=== PATIENT | female | born 1965 | race Caucasian/White ===

== ENCOUNTER 2016-04-02 15:39 | Inpatient (IN) | payer OTHER ==
[~2016-04-02] VITALS: Ht 154.9 cm; Wt 57.6 kg
[~2016-04-02 15:39] MED LIST: /CELE20CA OR; ACET65TA OR; ADV250INH INH; ALBU17IN2 INH; ALBU83IN INH; ATOR40TA PO; BUPR15TA PO; COZA100T2 PO; DIGO0.12 PO; DRIS50002 PO; ELIQ5TAB PO; ESTR625TA PO; FLUO40CA PO; FURO40TA2 PO; GABA300C3 PO; IBUP600T26 PO; LASI40TA PO; LOSA100T36 PO; MELA10CA PO; METF1000 PO; METO50TA2 PO; MILKSUS OR; NICO14DI3 TOP; NORCOTAB PO; PERC5TAB8 OR; PERC7.5T8 OR; PRED10PA PO; PROZ20CA OR; SPIR1CAP INH; TESS100C PO; ZYBA150T PO; ZZZQ25CA PO
[2016-04-02] MEDS ORDERED: IPRATROPIUM 0.5MG/ALBUTEROL 2.5MG INH SOL UD 3ML (DUONEB)(J7620) As Ordered ONE (16:07)
[2016-04-02] MEDS ORDERED: methylPREDNISolone INJ 125 MG/2 ML VIAL (J2930) As Ordered ONE (16:10)
[2016-04-02 16:44] LABS: ABG BASE EXCESS -7.6 (-2.0-2.0); ABG DEVICE NASAL CANN; ABG PARTIAL PRESSURE CO2 32.7 mmHg (35.0-45.0); ABG PARTIAL PRESSURE O2 55.9 mmHg (75.0-100.0); ABG STANDARD HCO3 18.2 MEQ/L (22.0-26.0); ABG pH (ARTERIAL) 7.334 UNITS (7.350-7.450)
--- NOTE | 2016-04-02 17:00 | REP ---
Clinical: Chest pain . Comparison: 08/30/2015 . Findings: The mediastinum and cardiac silhouette are stable and within normal limits for portable technique. Pacemaker again identified. The lung hinojosa demonstrate chronic changes without acute consolidation, effusion, or pneumothorax. Skeletal structures are intact. Impression: No acute cardiopulmonary process. Signed by Saurav Villalpando MD 04/02/2016 04:51 P
[2016-04-02 17:01] LABS: MEAN CORPUSCULAR HEMOGLOBIN 30.4 pg (27.0-33.0); MEAN CORPUSCULAR HGB CONC 33.4 g/dl (32.0-36.5); RED CELL DISTRIBUTION WIDTH 12.9 % (11.5-14.5); WHITE BLOOD COUNT 18.9 K/mm3 (4.0-10.0)
[2016-04-02] MEDS ORDERED: ONDANSETRON 4MG/2ML VIAL (J2405) As Ordered ONE (17:09)
[2016-04-02] MEDS ORDERED: ALBUTEROL SULFATE 2.5 MG/0.5 ML INH NEB SOLN As Ordered ONE (17:10)
[2016-04-02] MEDS ORDERED: KETOROLAC 30 MG/ML VIAL (J1885) As Ordered ONE (17:21)
[2016-04-02 17:42] LABS: ALBUMIN 3.7 GM/DL (3.2-5.2); ALBUMIN/GLOBULIN RATIO 0.86 (1.00-1.93); ALKALINE PHOSPHATASE 135 U/L (45-117); ALT/SGPT 22 U/L (12-78); ANION GAP 12 MEQ/L (8-16); AST/SGOT 34 U/L (15-37); BILIRUBIN,DIRECT 0.1 MG/DL (0.0-0.2); BILIRUBIN,TOTAL 0.2 MG/DL (0.2-1.0); BLOOD UREA NITROGEN 8 MG/DL (7-18); CALCIUM LEVEL 8.5 MG/DL (8.5-10.1); CARBON DIOXIDE LEVEL 23 MEQ/L (21-32); CHLORIDE LEVEL 106 MEQ/L (98-107); CREATININE FOR GFR 0.88 MG/DL (0.55-1.02); DIGOXIN LEVEL 0.2 NG/ML (0.5-2.0); GLOMERULAR FILTRATION RATE > 60.0 (>58); GLUCOSE, FASTING 119 MG/DL (70-105); SODIUM LEVEL 141 MEQ/L (136-145)
[2016-04-02 18:16] LABS: ABG BASE EXCESS -8.2 (-2.0-2.0); ABG HCO3 17.4 MEQ/L (22.0-26.0); ABG TOTAL CO2 18.5 MEQ/L (22.0-29.0)
[2016-04-02 18:18] LABS: ABG DEVICE NASAL CANN; ABG PARTIAL PRESSURE CO2 36.1 mmHg (35.0-45.0); ABG STANDARD HCO3 17.5 MEQ/L (22.0-26.0)
[2016-04-02 18:19] LABS: ABG PARTIAL PRESSURE O2 41.6 mmHg (75.0-100.0)
--- NOTE | 2016-04-02 18:22 | ECGEPIP ---
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
[2016-04-02] MEDS ORDERED: ZOSYN 3.375 GM VIAL (J2543) As Ordered ONE (18:33)
[2016-04-02 18:34] LABS: AMPHETAMINES LEVEL URINE NEGATIVE (NEGATIVE); BENZODIAZEPINES URINE NEGATIVE (NEGATIVE); COCAINE METABOLITE URINE NEGATIVE (NEGATIVE); CONTROL LINE INT CTR LINE PRESENT; METHADONE URINE NEGATIVE (NEGATIVE); OPIATES URINE POSITIVE (NEGATIVE); TRICYCLIC ANTIDEPRESS URINE NEGATIVE (NEGATIVE)
[2016-04-02] MEDS ORDERED: VANCOMYCIN 750 MG/25 ML VIAL (J3370) As Ordered ONE (20:28)
[2016-04-02] MEDS ORDERED: VANCOMYCIN HCL 500 MG/10 ML VIAL (J3370) As Ordered ONE (20:28)
[2016-04-02] MEDS ORDERED: OXAZEPAM 15 MG CAP As Ordered ONE (20:28)
[2016-04-02] MEDS ORDERED: OXAZEPAM 10 MG CAP PO PRN (20:30)
[2016-04-02] MEDS ORDERED: LORazepam 2 MG/ML VIAL (J2060) IM PRN (20:30)
[2016-04-02] MEDS ORDERED: ONDANSETRON 4MG/2ML VIAL (J2405) IV PRN (20:30)
[2016-04-02] MEDS ORDERED: FURO40TA2 PO (20:34)
[2016-04-02] MEDS ORDERED: METO-207 PO (20:34)
[2016-04-02] MEDS ORDERED: DIGO0.25 PO (20:35)
[2016-04-02] MEDS ORDERED: IPRATROPIUM 0.5MG/ALBUTEROL 2.5MG INH SOL UD 3ML (DUONEB)(J7620) NEB PRN (22:00)
[2016-04-02] MEDS ORDERED: DEXTROSE 50% 50 ML SYRINGE IV PRN (22:15)
[2016-04-02] MEDS ORDERED: GLUCOSE 4 GM CHEW TABLET PO PRN (22:15)
[2016-04-02] MEDS ORDERED: GLUCAGON FOR INJ 1 MG VIAL (J1610) SC PRN (22:15)
[2016-04-02] MEDS ORDERED: LevoFLOXacin IV 500 MG in APPROPRIATE DILUENT 1 EA IV SCH (23:00)
[2016-04-02] MEDS ORDERED: LevoFLOXacin(LEVAQUIN)500 MG/100 ML BAG (J1956) As Ordered ONE (23:08)
[2016-04-02] MEDS ORDERED: HumuLIN R (REGULAR) INSULIN (NovoLIN R) **100U/ML** PER UNIT As Ordered ONE (23:10)
[2016-04-02] MEDS ORDERED: SODIUM CHLORIDE 0.9% 1000 ML IV SCH (23:15)
[2016-04-02] MEDS ORDERED: DOCUSATE SODIUM 100 MG CAP As Ordered ONE (23:16)
[2016-04-02] MEDS: HumaLOG INSULIN (NovoLOG) PER UNIT SC SCH (23:29)
[2016-04-02] MEDS: ADVAIR DISKUS 250/50 INH PWD INH SCH (23:29)
[2016-04-02] MEDS: GABAPENTIN 300 MG CAP PO SCH (23:29)
[2016-04-02] MEDS: DOCUSATE SODIUM 100 MG CAP PO SCH (23:29)
[2016-04-03] VITALS (7 sets, daily range): BP systolic 110–148; BP diastolic 56–77
[2016-04-03] MEDS: NS 1,000 ML IV SCH ×3 (00:23→20:16)
[2016-04-03] MEDS ORDERED: ZOSYN 3.375 GM VIAL (J2543) As Ordered ONE ×2 (01:29→08:47)
[2016-04-03] MEDS: PIPERACILLIN/TAZOBACTAM SOD 3.375 GM in D5W MINI-BAG PLUS 50 ML IV SCH ×4 (01:40→23:24)
[2016-04-03] MEDS ORDERED: SODIUM CHLORIDE 0.9% 1000 ML IV ONE (03:15)
[2016-04-03] MEDS ORDERED: methylPREDNISolone INJ 125 MG/2 ML VIAL (J2930) As Ordered ONE (03:58)
[2016-04-03] MEDS: methylPREDNISolone INJ 125 MG/2 ML VIAL (J2930) IV SCH ×2 (04:03→17:21)
--- NOTE | 2016-04-03 06:38 | HPE ---
DATE OF ADMISSION: 04/01/2016 PRIMARY CARE PROVIDER: TIANA Medeiros CHIEF COMPLAINT: Is altered mental status, shortness of breath. HISTORY OF PRESENT ILLNESS: 50-year-old female presented to the emergency department by emergency medical service (EMS). Was called to the house by a family member. Had initially been unresponsive and given 6 mg of Narcan. She did become combative when she woke up. Did require some oxygen supplementation, and brought to the emergency department for further evaluation. At bedside, she actually was pleasant to talk to this evening. She states that she is unaware of whether or not somebody slipped her some kind of illicit drug. She does have a prior history of polysubstance abuse, alcohol abuse, and tobacco use, but she states it has been "a long time" since she has used any heroin or any other illicit drugs intentionally. At any rate, she has had 1-2 weeks of fever, chills, rigors, productive sputum with cough. She has had some nausea today with no vomiting. Bowel movements are regular. She denies any hematochezia or melena. No dysuria or frequency. She denies substernal chest pain. No paroxysmal nocturnal dyspnea (PND) or orthopnea. However, she was given some supplemental oxygen in the emergency room (ER) and when they tried to titrate her off, she desaturated into the 70s. Her chest x-ray did not reveal any specific infiltrate or consolidation. However, she does have a pacer and does have coarse breath sounds on examination by the ER physician, and the hospitalist was called for admission due to the patient having altered mentation, productive sputum, and hypoxia with likely pneumonia, possibly aspiration pneumonia. 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 PAST SURGICAL HISTORY: Kidney surgery. Had a chest tube on the right a few years ago by Dr. Miguel. Automatic implantable cardioverter-defibrillator (AICD)/pacemaker insertion, heart catheterization, and (C) section. SOCIAL HISTORY: She smokes approximately a half a pack to a pack a day. Does have a history of polysubstance abuse with heroin in the past. However, she denies using any illicit drugs recently. She is unsure of any sick contacts. No recent travel. FAMILY HISTORY: Noncontributory. ALLERGIES: INTRAVENOUS (IV) DYE, SULFA. HOME MEDICATIONS: - Advair Diskus two inhalations daily - albuterol inhaler as needed - baclofen, unknown dose - digoxin daily - Eliquis, which she stated she has discontinued a few weeks ago because it was making her feel like she was freezing - gabapentin three times daily - losartan two times daily - metformin 1000 mg twice a day - Naprosyn as needed - Spiriva HandiHaler one capsule daily Please note that pharmacy is currently checking a medication reconciliation since we do not have any accurate doses on her medications listed here. REVIEW OF SYSTEMS: Constitutional: She has had fevers, chills, rigors for the last couple of weeks with a productive intermittent cough. HEENT: She denies headache, lightheadedness, dizziness, blurry vision, or double vision. She denies sore throat, but it is felt that she has had a scratchy throat. Lungs: She describes having a productive sputum, expiratory wheeze. Has history of COPD that she uses inhalers for at home. Cardiovascular: Prior history of atrial fibrillation with cardiac stent placement, left bundle branch block, and AICD placement in the past. Currently, she denies substernal chest pain, PND, orthopnea, or lower extremity edema. Gastrointestinal (GI): No nausea, vomiting, diarrhea. Bowel movements are regular. She denies any hematochezia or melena. Genitourinary (): No dysuria, frequency, or hematuria. Musculoskeletal: No bone, muscle, or joint pain, swelling, or erythema, but she does describe having some generalized weakness. Neurologic: No paresthesias or paralysis. She did present with some metabolic encephalopathy in the field and did respond to Narcan. Endocrine: Positive for diabetes. Negative for thyroid disorder. Hematology: No history of bleeding or bruising disorder. No venous thromboembolism. She was previously on Eliquis, which she has discontinued on her own a few weeks ago, but has no issues of bleeding or bruising currently. Oncology: Negative for cancer. Lymphatics: No lumps, bumps, swelling in neck, axillae, or groin. No weight loss. She has had some fevers, but no specific night sweats. Psychiatric: Positive for bipolar disorder, polysubstance abuse. No suicidal ideation. No audio/visual hallucination. She is pleasant at bedside this evening. 10-point review of systems listed. Pertinent positives listed. All other systems were negative. PHYSICAL EXAMINATION: Temperature is 96.8, respiratory rate is 18, pulse is 109 and ventricularly paced, blood pressure (BP) is 120/59. She did have a dip earlier this evening to 106/60, and she has not received any IV fluids at this point. SpO2 is 96% on 3 liters. HEENT: Head is atraumatic, normocephalic. Eyes: Pupils equal, round, reactive to light and accommodation (PERRLA). Throat clear. Lungs: Coarse rhonchi noted in the lower lung hinojosa with expiratory wheeze in the upper lung field. Abdomen: Soft, nontender, nondistended with positive bowel sounds. No mass or rebound. Extremities: No edema. No calf tenderness. Cranial nerves II-XII grossly intact, and she does not demonstrate any focal neurologic deficits. LABS AND DIAGNOSTICS: White count 18.9, hemoglobin 15.3, platelets 348,000. Sodium is 141, potassium 4.0, chloride 106, bicarbonate 23, anion gap 12, BUN is 8, creatinine 0.88, glucose is 119, calcium 8.5, total bilirubin 0.2, direct bilirubin 0.1, AST 34, ALT 22, alkaline phosphatase 135, BNP is 38.8, albumin is 3.7, TSH is 0.634. Digoxin level is 0.2. Toxicology screen is positive for opiates, positive for cannabinoids, and alcohol is 0.101. Blood cultures and sputum cultures are pending at this time as well as a lactic acid. Her chest x-ray is outlined above. Does show clear lung hinojosa with no definitive infiltrate or consolidation. However, the chest CT does show bronchitis with early multifocal pneumonia involving the right upper, right middle, and right lower lobes with underlying chronic emphysematous changes. Head CT done on admission/presentation to the emergency department is negative for any acute intracranial processes or acute intracranial bleed. 12-lead EKG initially did show electrically ventricular paced rhythm with a ventricular rate of 132. No acute ST-T wave abnormality. We did repeat this. Her ventricular rate did come down to 88, did appear to be regular, and electronic ventricular pacing is noted with no acute ST-T wave abnormalities. IMPRESSION: Ms. Hennessy is a 50-year-old female who presented to the emergency department after being found down at home with altered mental status. Did respond to Narcan in the field. However, she has had 1-2 weeks of febrile illness, productive sputum, cough, fever, chills, and rigors, and does appear to have multilobar pneumonia on CT of the chest. She will need to be admitted due to her underlying cardiac risk factors and comorbidities. She does have a bit higher of a risk factor due to her pneumonia, and she will need to be covered appropriately. PROBLEM LIST: 1. Metabolic encephalopathy, which received Narcan in the field and responded appropriately. 2. Multilobar pneumonia. Lactic acid is pending. 3. Acute hypoxia requiring oxygen supplementation, possible aspiration. 4. Leukocytosis. 5. Alcohol abuse. 6. Polysubstance abuse. 7. Tobacco use, which we provided counseling and encouraged cessation. 8. Bipolar disorder. 9. History of hepatitis C virus in the past, which she has received outpatient therapy with Dr. Diaz. 10. Diabetes. PLAN: The patient will be admitted to progressive care unit (PCU) per Dr. Ford. Will continue with IV antibiotics consisting of IV Zosyn and Levaquin. Will add an Acapella, DuoNeb, sputum culture, blood cultures, as well as check a respiratory panel. Oxygen supplementation with goal of oxygen titration greater than 88%. We will go ahead and check a lactic acid. I am going to go ahead and start gentle IV fluids since she does appear to be mildly toxic but does not currently have any signs of sepsis, but we will see what her lactate shows. She was slightly hypotensive earlier, so we will go ahead and give her some volume expansion with IV fluids, run normal saline at 80 mL/hr. Tylenol for fever. Continue her home medications. Concerning the history of alcohol use, we will need to monitor for withdrawal, start her on Serax and Ativan as needed, thiamine, folic acid, multivitamin. Deep venous thrombosis (DVT) prophylaxis with Lovenox. Concerning the Eliquis, we will go ahead and hold that for now. This can be addressed further with the daytime team. Due to her history of polysubstance abuse, altered mental status, she may be at an increased risk for a fall with head trauma resulting in intracranial hemorrhage. 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 Will hold the patient's metformin. Will start on consistent-carbohydrate diet. Fingersticks before food and nightly with sliding scale coverage. DISPOSITION: We will see how she does overnight. Would like to monitor her on telemetry since she does have an underlying cardiac history with the multilobar pneumonia. We will go ahead and place a patient and family services (PFS) consult as well. Edited: lawrence 04/03/2016 [id number] MTDD
[2016-04-03] MEDS: IPRATROPIUM 0.5MG/ALBUTEROL 2.5MG INH SOL UD 3ML (DUONEB)(J7620) NEB SCH ×3 (08:00→15:59)
--- NOTE | 2016-04-03 08:09 | REP ---
Clinical: Altered mental status . Comparison: 04/22/2012 . Findings: The ventricles, sulci, and cisterns are normal in position and appearance. Ballesteros-white differentiation is maintained. No acute intracranial hemorrhage, mass/mass effect, pathology or trauma/injury. No evidence for acute infarction. No extra-axial fluid collection. Calvarium is intact. Paranasal sinuses and mastoid air cells are clear. Impression: Normal noncontrast head CT. No evidence for acute intracranial pathology or trauma/injury. Signed by Saurav Villalpando MD 04/03/2016 08:01 A
--- NOTE | 2016-04-03 08:12 | REP ---
Clinical: Shortness of breath. Comparison: 10/14/2010. Findings: Mild chronic emphysematous changes are appreciated with primarily by apical subpleural bullae and minimal bronchiectasis. Subtle superimposed acute alveolar infiltrates involve primarily the right upper lobe, right lower lobe and right middle lobe and to a lesser extent the perihilar left lung. No focal nodule or mass lesion. Mild reactive adenopathy in the mediastinum and high right hilum suggested. No pleural effusion/reaction or pneumothorax. Heart and pericardium are stable. Impression: Evidence to suggest bronchitis with early multifocal pneumonia. Correlation is recommended. Mild underlying emphysematous changes. Signed by Saurav Villalpando MD 04/03/2016 08:03 A
[2016-04-03] MEDS: TIOTROPIUM INHALER/CAPSULE (SPIRIVA) INH SCH (08:13)
[2016-04-03] MEDS: ADVAIR DISKUS 250/50 INH PWD INH SCH ×2 (08:13→21:00)
[2016-04-03 08:45] LABS: MEAN CORPUSCULAR HGB CONC 33.8 g/dl (32.0-36.5); MEAN CORPUSCULAR VOLUME 91.8 fl (80.0-96.0); WHITE BLOOD COUNT 19.3 K/mm3 (4.0-10.0)
[2016-04-03] MEDS ORDERED: HumaLOG INSULIN (NovoLOG) PER UNIT As Ordered ONE ×2 (08:47→13:15)
[2016-04-03 08:50] LABS: CALCIUM LEVEL 8.9 MG/DL (8.5-10.1); CREATININE FOR GFR 1.1 MG/DL (0.55-1.02); GLOMERULAR FILTRATION RATE 56.2 (>58); POTASSIUM SERUM 4.1 MEQ/L (3.5-5.1)
[2016-04-03] MEDS ORDERED: FUROSEMIDE 40 MG TAB PO SCH (09:00)
[2016-04-03] MEDS ORDERED: ENOXAPARIN 40 MG/0.4 ML SYRINGE (J1650) SC SCH (09:00)
[2016-04-03] MEDS ORDERED: ENOXAPARIN 30 MG/0.3 ML SYR (J1650) As Ordered ONE (09:04)
[2016-04-03] MEDS ORDERED: THIAMINE 100 MG TAB As Ordered ONE (09:05)
[2016-04-03] MEDS ORDERED: DIGOXIN 0.25 MG TAB As Ordered ONE (09:05)
[2016-04-03] MEDS ORDERED: FOLIC ACID 1 MG TAB As Ordered ONE (09:05)
[2016-04-03] MEDS ORDERED: MULTIVITAMINS/MINERALS THERAP 1 TAB As Ordered ONE (09:05)
[2016-04-03] MEDS ORDERED: DOCUSATE SODIUM 100 MG CAP As Ordered ONE (09:05)
[2016-04-03] MEDS: HumaLOG INSULIN (NovoLOG) PER UNIT SC SCH ×4 (09:07→20:16)
[2016-04-03] MEDS: FOLIC ACID 1 MG TAB PO SCH (09:07)
[2016-04-03] MEDS: DOCUSATE SODIUM 100 MG CAP PO SCH ×2 (09:07→20:12)
[2016-04-03] MEDS: LOSARTAN 50 MG TAB PO SCH (09:07)
[2016-04-03] MEDS: THIAMINE 100 MG TAB PO SCH (09:07)
[2016-04-03] MEDS: MULTIVITAMINS/MINERALS THERAP 1 TAB PO SCH (09:07)
[2016-04-03] MEDS: GABAPENTIN 300 MG CAP PO SCH ×3 (09:07→20:12)
[2016-04-03] MEDS: DIGOXIN 0.25 MG TAB PO SCH (09:08)
[2016-04-03] MEDS: METOPROLOL SUCC (TopROL XL) 50MG **XL** TAB PO SCH (09:08)
[2016-04-03] MEDS: NICOTINE 14 MG/24 HR TRANSDERMAL TD SCH (09:08)
[2016-04-03] MEDS ORDERED: ENOXAPARIN 40 MG/0.4 ML SYRINGE (J1650) As Ordered ONE (09:13)
[2016-04-03] MEDS ORDERED: OXAZEPAM 10 MG CAP As Ordered ONE (12:01)
[2016-04-03] MEDS: OXAZEPAM 15 MG CAP PO SCH ×2 (13:45→20:13)
[2016-04-03] MEDS ORDERED: IPRATROPIUM 0.5MG/ALBUTEROL 2.5MG INH SOL UD 3ML (DUONEB)(J7620) As Ordered ONE (14:56)
--- NOTE | 2016-04-03 15:28 | EDDOCDS ---
Nurse's Notes [facility] Name: Cynthia Hennessy Age: 50 yrs Sex: Female : 1965 Arrival Date: 04/02/2016 Time: 15:39 Bed Admit Hold Private MD: Alla Fernandes C Diagnosis: Lobar pneumonia, unspecified organism-RUL, RML, RLL - aspiration;Altered mental status, unspecified;Acute and chronic respiratory failure with hypoxia;Alcohol use, unspecified with intoxication Presentation: 04/02 15:42 Presenting complaint: EMS states: "We were called to the house for the pt being mb9 unresponsive. We gave 6 mg of narcan and the pt began to wake up and become combative". Suicide/Homicide risk assessment- the patient denies having any suicidal and/or homicidal ideations and does not present with any other emotional, behavioral or mental health complaints. Status: Patient is not a director volunteer services or dependent. Transition of care: patient was not received from another setting of care. 15:42 Acuity: ELIAS Level 3 mb9 15:42 Method Of Arrival: Ambulance mb9 15:52 Adult Sepsis Screening: The patient does not have new or worsening altered mentation. js13 Patient's respiratory rate is less than 22. Systolic blood pressure is greater than 100. Patient has a qSOFA score of 0- Negative Sepsis Screen. Triage Assessment: 15:48 General: Appears ill. Pain: Denies pain. Pt Declines HIV testing. Neurological: Level js13 of Consciousness is awake, alert, obeys commands, Oriented to person, place, time. Cardiovascular: Rhythm is sinus tachycardia Chest pain is denied. Respiratory: Airway is patent Respiratory effort is even, labored, Respiratory pattern is tachypnea. Derm: Skin is normal. 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 Advair Diskus inhalation Inhl 2 times per day 2. Albuterol Inhl as needed 3. Baclofen Oral Unknown as needed 4. Digoxin Oral once daily 5. Eliquis oral Unknown 2 times per day 6. Gabapentin Oral 3 times per day 7. losartan oral Unknown 2 times per day 8. metformin 1,000 mg Oral tab 1 tab 2 times per day 9. Naprosyn Oral as needed 10. Spiriva with HandiHaler 18 mcg Inhl CpDv 1 cap once daily - PMHx: Atrial Fib; COPD; Diabetes - NIDDM: controlled; Hypertension; LBBB; - PSHx: kidney surgery; Chest Tube- Right; defibbrilator placement; Pacemaker Insertion; heart cath; ; - Social history: Smoking status: Patient uses tobacco products, current every day smoker. No barriers to communication noted, The patient speaks fluent [place]. - Family history: Not pertinent. - : The pt / caregiver states he / she is on anticoagulants: Eliquis Home medication list is obtained from the patient, [employer] import data. - Exposure Risk Screening:: None identified. Screenin/20 15:12 Screening information is obtained from the patient. Fall risk: No risks identified. me3 Assistance ADL's: requires no assistance with activities of daily living. Abuse/DV Screen: The patient / caregiver reports he/she is: not in a situation that causes fear, pain or injury. Nutritional screening: No deficits noted. Advance Directives: Currently, there is no health care proxy. home support is adequate. Assessment: 04/02 16:00 General: Appears uncomfortable, Behavior is anxious, fussy, inappropriate for age, mb9 restless. Respiratory: Airway is patent Respiratory effort is even, unlabored, Reports cough that is. 17:02 Reassessment: Patient states symptoms have improved. General: Appears uncomfortable, mb9 Behavior is fussy. Respiratory: Airway is patent Respiratory effort is even, unlabored, Breath sounds are clear bilaterally. Breath sounds are diminished in left posterior lower lobe, right posterior middle lobe and right posterior lower lobe. 18:24 Reassessment: Patient states symptoms have improved. General: Appears uncomfortable, mb9 Behavior is cooperative. Respiratory: Airway is patent Respiratory effort is even, unlabored, Breath sounds are coarse bilaterally. Breath sounds with wheezes bilaterally. 20:07 General: pt demanding to leave er at this time. dr torres notified. . mb9 21:56 Reassessment: Patient appears in no apparent distress at this time. Patient states mb9 feeling better. Patient states symptoms have improved. Adult Sepsis Screening: The patient does not have new or worsening altered mentation. Patient's respiratory rate is less than 22. Systolic blood pressure is greater than 100. Patient has a qSOFA score of 0- Negative Sepsis Screen. General: Appears comfortable, Behavior is cooperative. Respiratory: Airway is patent Respiratory effort is even, unlabored. 23:51 General: Dr Tomlinson notified of pt's lactic acid of 2.8. mb9 Vital Signs: 15:42 BP 140 / 76; Pulse 120; Resp 18; Temp 96.8(TE); Pulse Ox 94% on R/A; Weight 54.43 kg ml6 (R); Height 5 ft. 1 in. (154.94 cm) (R); Pain 0/10; 15:47 BP 140 / 76 (auto/); js13 16:00 BP 123 / 64 (auto/); mb9 16:00 Pulse 118 MON; Pulse Ox 84% on 3 lpm NC; mb9 16:14 Pulse 115 MON; Pulse Ox 82% on 3 lpm NC; mb9 16:15 BP 135 / 83 (auto/); mb9 16:30 BP 126 / 66 (auto/); mb9 16:33 Pulse 118 MON; Pulse Ox 80% on 3 lpm NC; mb9 17:00 BP 124 / 65 (auto/); mb9 17:01 Pulse 117 MON; Pulse Ox 90% on Venturi mask; mb9 17:15 BP 142 / 77 (auto/); mb9 17:15 Pulse 118 MON; Pulse Ox 97% on Venturi mask; mb9 17:30 BP 123 / 65 (auto/); mb9 17:31 Pulse 134 MON; Pulse Ox 99% on Venturi mask; mb9 17:45 BP 123 / 58 (auto/); mb9 17:46 Pulse 130 MON; Pulse Ox 98% on Venturi mask; mb9 18:00 BP 128 / 62 (auto/); mb9 18:01 Pulse 126 MON; Pulse Ox 98% on Venturi mask; mb9 18:15 BP 117 / 57 (auto/); mb9 18:16 Pulse 122 MON; Pulse Ox 96% on Venturi mask; mb9 18:30 BP 123 / 58 (auto/); mb9 18:31 Pulse 120 MON; Pulse Ox 98% on Venturi mask; mb9 18:45 BP 120 / 56 (auto/); mb9 18:46 Pulse 119 MON; Pulse Ox 96% on Venturi mask; mb9 19:00 BP 106 / 68 (auto/); mb9 19:01 Pulse 109 MON; Pulse Ox 96% on Venturi mask; mb9 19:14 Pulse 109 MON; Pulse Ox 96% on Venturi mask; mb9 19:15 BP 121 / 59 (auto/); mb9 19:30 BP 116 / 59 (auto/); mb9 19:31 Pulse 107 MON; Pulse Ox 100% on Venturi mask; mb9 19:45 BP 121 / 59 (auto/); mb9 19:46 Pulse 106 MON; Pulse Ox 96% on Venturi mask; mb9 20:08 Pulse Ox 93% on R/A; mb9 20:16 BP 127 / 74 (auto/); mb9 20:17 Pulse 108 MON; Pulse Ox 95% ; mb9 21:16 BP 118 / 64 (auto/); mb9 21:17 Pulse 92 MON; Pulse Ox 96% ; mb9 15:42 Body Mass Index 22.67 (54.43 kg, 154.94 cm) ml6 16:00 pt continues to remove nasal cannula. pt advised to leave nasal cannula in place. mb9 16:14 pt continues to remove nasal cannula. pt advised to leave nasal cannula in place. mb9 16:33 pt continues to remove nasal cannula. pt advised to leave nasal cannula in place. mb9 Vitals: 15:42 Log In Time N/A - ambulance arrival. ml6 ED Course: 15:40 Patient visited by Courtney Bhatt PCA. ar3 15:40 Valentina Tinsley,RN is Primary Nurse. ar3 15:40 Patient moved to Waiting ar3 15:40 Patient moved to 3 ar3 15:41 Alla Fernandes is Private Physician. ar3 15:45 Joslyn Huddleston MD is Attending Physician. fg 15:45 Patient visited by Joslyn Huddleston MD. fg 15:46 Triage Initiated mb9 15:50 Patient visited by Catina Calderon PCA. jlf 15:51 O2 via nasal cannula \\T\\ 3L/min. js13 15:52 Patient visited by Valentina Tinsley,ARTURO. js13 16:38 Inserted saline lock: 18 gauge in right antecubital area and blood collected. The mb9 patient tolerated the procedure well. 16:39 -Arterial Blood Gas Sent. lb 16:59 [facility] [place] [facility] Payment Agreement was scanned into [employer] and attached to record. slh 17:02 Patient visited by Zac Correa RN. mb9 17:10 Chest, 1 View Returned. EDMS 17:27 Patient visited by Catina Calderon PCA. 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 Pulse ox on. NIBP on. Notified attending ED physician of was unable jl to perform EKG until 1725. MD aware. . 17:27 EKG done. (by ED staff). Reviewed by Joslyn Huddleston MD. jlf 17:57 Patient visited by Catina Calderon PCA. jlf 17:57 Drug Eval Toxicology ED Only Sent. jlf 18:07 -Arterial Blood Gas Sent. kt1 18:27 Patient visited by Zac Correa RN. mb9 18:33 EKG-ADULT Returned. EDMS 19:15 Attending Physician role handed off by Joslyn Huddleston MD mm11 19:15 Gray Torres DO is Attending Physician. mm11 19:19 Primary Nurse role handed off by Valentina Tinsley RN ko2 19:32 Patient visited by Gray Torres DO. mm11 20:06 Patient visited by Zac Correa RN. mb9 20:09 Patient moved to 11 mb9 20:16 Patient visited by Gray Torres DO. mm11 20:17 Leonidas Tomlinson DO is Hospitalizing Provider. mm11 20:54 Patient moved to Admit Hold ml3 21:19 Patient visited by Lucille King PCA. cln 21:19 EKG done. (by ED staff). Reviewed by Leonidas Tomlinson DO. cln 21:56 URINALYSIS Sent. mb9 22:13 RESPIRATORY PANEL Sent. mb9 22:25 BLOOD CULTURES Sent. cln 04/03 07:54 PCR was scanned into cicayda and attached to record. mt4 08:12 CT Head Without Contrast Returned. EDMS 08:45 CT Chest Without Contrast Returned. EDMS 15:13 No procedures done that require assistance. me3 15:15 The patient / caregiver is instructed regarding the plan of care and ED course. me3 Administered Medications: 04/02 16:16 Drug: Solu-MEDROL 125 mg [Solu-Medrol 500 mg intravenous solution (125 mg)] Route: IVP; js13 Site: right antecubital; 16:39 Drug: Albuterol-Ipratropium 3 ml [ipratropium-albuterol 0.5 mg-3 mg(2.5 mg base)/3 mL lb nebulization soln (3 mL)] Route: Inhalation; 17:16 Drug: Ondansetron 4 mg [ondansetron HCl 2 mg/mL intravenous solution (2 mL)] Route: mb9 IVP; Site: right antecubital; 17:25 Drug: ketorolac 30 mg [ketorolac 30 mg/mL (1 mL) injection solution (1 mL)] Route: IVP; mb9 Site: right antecubital; 18:00 Drug: Albuterol 5 mg [albuterol sulfate 2.5 mg/0.5 mL solution for nebulization (1 mL)] kt1 Route: Nebulizer; 18:40 Drug: Piperacillin-Tazobactam 3.375 grams [piperacillin-tazobactam 3.375 gram mb9 intravenous solution] Route: IVPB; Infused Over: 30 mins; Site: right antecubital; 23:50 Follow up: IV Intake: 50ml mb9 20:47 Drug: Oxazepam 30 mg [oxazepam 15 mg capsule (2 caps)] Route: PO; mb9 20:47 Drug: vancomycin (loading dose for pt. wt. 50-59kg) 1250 mg [vancomycin 500 mg mb9 intravenous solution] Route: IVPB; Site: right antecubital; 23:51 Follow up: IV Intake: 500ml mb9 Point of Care Testing: Blood Glucose: 22:46 Blood Glucose: 289 mg/dL; mb9 Ranges: Intake: 23:50 IV: 50.00ml; Total: 50.00ml. mb9 23:51 IV: 500.00ml; Total: 550.00ml. mb9 RT: 16:39 ABG's drawn from right radial artery allens test done and positive pressure held for 5 lb minutes no bleeding noted pressure bandage applied specimen sent pt. tolerated well. Initial Med Neb Given as ordered Patient was instructed and evaluated on procedure Patient tolerated procedure well without adverse effect. Respiratory: Breath sounds are coarse bilaterally. 17:13 Subsequent Med Neb Given as ordered Patient tolerated procedure well without adverse lb effect. Respiratory: Breath sounds are coarse bilaterally. Breath sounds with wheezes at expiration. 17:13 O2 via Venturi mask \\T\\ 15L/min - 50%. lb 18:08 ABG's drawn from left radial artery pressure held for 5 minutes no bleeding noted kt1 pressure bandage applied specimen sent pt. tolerated well. Order Results: Lab Order: -Arterial Blood Gas; [facility] 04/02/16 16:10 Test: ABG pH (ARTERIAL); Value: 7.334; Range: 7.350-7.450; Abnormal: Below low normal; Units: UNITS; Status: F Test: ABG PARTIAL PRESSURE CO2; Value: 32.7; Range: 35.0-45.0; Abnormal: Below low normal; Units: mmHg; Status: F Test: ABG PARTIAL PRESSURE O2; Value: 55.9; Range: 75.0-100.0; Abnormal: Below low normal; Units: mmHg; Status: F Test: ABG TOTAL CO2; Value: 18.0; Range: 22.0-29.0; Abnormal: Below low normal; Units: MEQ/L; Status: F Test: ABG HCO3; Value: 17.0; Range: 22.0-26.0; Abnormal: Below low normal; Units: MEQ/L; Status: F Test: ABG BASE EXCESS; Value: -7.6; Range: -2.0-2.0; Abnormal: Below low normal; Status: F Test: ABG STANDARD HCO3; Value: 18.2; Range: 22.0-26.0; Abnormal: Below low normal; Units: MEQ/L; Status: F Test: ABG O2 SATURATION; Value: 88.1; Range: 95.0-99.0; Abnormal: Below low normal; Units: %; Status: F Test: ABG DEVICE; Value: NASAL AVI; Status: F Lab Order: Acetaminophen Level; SPEC' 04/02/16 16:53 Test: ACETAMINOPHEN LEVEL; Value: < 2.0; Range: 10.0-30.0; Abnormal: Below low normal; Units: UG/ML; Status: F Lab Order: Basic Metabolic Profile; [facility]04/02/16 16:53 Test: GLUCOSE, FASTING; Value: 119; Range: 70-105; Abnormal: Above high normal; Units: MG/DL; Status: F Test: BLOOD UREA NITROGEN; Value: 8; Range: 7-18; Units: MG/DL; Status: F Test: CREATININE FOR GFR; Value: 0.88; Range: 0.55-1.02; Units: MG/DL; Status: F Test: GLOMERULAR FILTRATION RATE; Value: > 60.0; Range: >58; Status: F Test: SODIUM LEVEL; Value: 141; Range: 136-145; Units: MEQ/L; Status: F Test: POTASSIUM SERUM; Value: 4.0; Range: 3.5-5.1; Units: MEQ/L; Status: F Test: CHLORIDE LEVEL; Value: 106; Range: 98-107; Units: MEQ/L; Status: F Test: CARBON DIOXIDE LEVEL; Value: 23; Range: 21-32; Units: MEQ/L; Status: F Test: ANION GAP; Value: 12; Range: 8-16; Units: MEQ/L; Status: F Test: CALCIUM LEVEL; Value: 8.5; Range: 8.5-10.1; Units: MG/DL; Status: F Test Note: ; Units are mL/min/1.73 m2 Chronic Kidney Disease Staging per NKF: Stage I & II GFR >=60 Normal to Mildly Decreased Stage III GFR 30-59 Moderately Decreased Stage IV GFR 15-29 Severely Decreased Stage V GFR <15 Very Little GFR Left ESRD GFR <15 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 Lab Order: Complete Blood Count; SPEC'M 04/02/16 16:53 Test: WHITE BLOOD COUNT; Value: 18.9; Range: 4.0-10.0; Abnormal: Above high normal; Units: K/mm3; Status: F Test: RED BLOOD COUNT; Value: 5.03; Range: 4.00-5.40; Units: M/mm3; Status: F Test: HEMOGLOBIN; Value: 15.3; Range: 12.0-16.0; Units: g/dl; Status: F Test: HEMATOCRIT; Value: 45.8; Range: 36.0-47.0; Units: %; Status: F Test: MEAN CORPUSCULAR VOLUME; Value: 91.0; Range: 80.0-96.0; Units: fl; Status: F Test: MEAN CORPUSCULAR HEMOGLOBIN; Value: 30.4; Range: 27.0-33.0; Units: pg; Status: F Test: MEAN CORPUSCULAR HGB CONC; Value: 33.4; Range: 32.0-36.5; Units: g/dl; Status: F Test: RED CELL DISTRIBUTION WIDTH; Value: 12.9; Range: 11.5-14.5; Units: %; Status: F Test: PLATELET COUNT, AUTOMATED; Value: 248; Range: 150-450; Units: k/mm3; Status: F Lab Order: Drug Eval Toxicology ED Only; SPEC'M 04/02/16 17:54 Test: AMPHETAMINES LEVEL URINE; Value: NEGATIVE; Range: NEGATIVE; Status: F Test: BARBITURATES URINE; Value: NEGATIVE; Range: NEGATIVE; Status: F Test: BENZODIAZEPINES URINE; Value: NEGATIVE; Range: NEGATIVE; Status: F Test: CANNABINOIDS URINE; Value: POSITIVE; Range: NEGATIVE; Abnormal: Above high normal; Status: F Test: COCAINE METABOLITE URINE; Value: NEGATIVE; Range: NEGATIVE; Status: F Test: METHADONE URINE; Value: NEGATIVE; Range: NEGATIVE; Status: F Test: OPIATES URINE; Value: POSITIVE; Range: NEGATIVE; Abnormal: Above high normal; Status: F Test: TRICYCLIC ANTIDEPRESS URINE; Value: NEGATIVE; Range: NEGATIVE; Status: F Test Note: ; FALSE POSITIVE RESULTS CAN BE CAUSED BY THE USE OF PANTOPRAZOLE (PROTONIX). Lab Order: Ethyl Alcohol (ethanol); SPEC'M 04/02/16 16:53 Test: ETHYL ALCOHOL (ETHANOL); Value: 0.101; Range: 0.000-0.010; Abnormal: Above high normal; Units: %; Status: F Lab Order: Liver Profile; SPEC'M 04/02/16 16:53 Test: AST/SGOT; Value: 34; Range: 15-37; Units: U/L; Status: F Test: ALT/SGPT; Value: 22; Range: 12-78; Units: U/L; Status: F Test: ALKALINE PHOSPHATASE; Value: 135; Range: 45-117; Abnormal: Above high normal; Units: U/L; Status: F Test: BILIRUBIN,TOTAL; Value: 0.2; Range: 0.2-1.0; Units: MG/DL; Status: F Test: BILIRUBIN,DIRECT; Value: 0.1; Range: 0.0-0.2; Units: MG/DL; Status: F Test: TOTAL PROTEIN; Value: 8.0; Range: 6.4-8.2; Units: GM/DL; Status: F Test: ALBUMIN; Value: 3.7; Range: 3.2-5.2; Units: GM/DL; Status: F Test: ALBUMIN/GLOBULIN RATIO; Value: 0.86; Range: 1.00-1.93; Abnormal: Below low normal; Status: F Lab Order: Salicylate Level; [facility] 04/02/16 16:53 Test: SALICYLATE LEVEL; Value: 3.5; Range: 5.0-30.0; Abnormal: Below low normal; Units: MG/DL; Status: F Lab Order: Thyroid Stimulating Hormone; [facility] 04/02/16 16:53 Test: THYROID STIMULATING HORMONE; Value: 0.634; Range: 0.358-3.740; Units: uIU/ML; Status: F Lab Order: BNP; [facility] 04/02/16 16:53 Test: BRAIN NATRIURETIC PEPTIDE; Value: 38.8; Range: <100; Units: PG/ML; Status: F Lab Order: Digoxin Level; [facility] 04/02/16 16:53 Test: DIGOXIN LEVEL; Value: 0.2; Range: 0.5-2.0; Abnormal: Below low normal; Units: NG/ML; Status: F Lab Order: -Arterial Blood Gas; [facility] 04/02/16 17:58 Test: ABG pH (ARTERIAL); Value: 7.300; Range: 7.350-7.450; Abnormal: Below low normal; Units: UNITS; Status: F Test: ABG PARTIAL PRESSURE CO2; Value: 36.1; Range: 35.0-45.0; Units: mmHg; Status: F Test: ABG PARTIAL PRESSURE O2; Value: 41.6; Range: 75.0-100.0; Abnormal: Critical Low; Units: mmHg; Status: F Test: ABG TOTAL CO2; Value: 18.5; Range: 22.0-29.0; Abnormal: Below low normal; Units: MEQ/L; Status: F Test: ABG HCO3; Value: 17.4; Range: 22.0-26.0; Abnormal: Below low normal; Units: MEQ/L; Status: F Test: ABG BASE EXCESS; Value: -8.2; Range: -2.0-2.0; Abnormal: Below low normal; Status: F Test: ABG STANDARD HCO3; Value: 17.5; Range: 22.0-26.0; Abnormal: Below low normal; Units: MEQ/L; Status: F Test: ABG O2 SATURATION; Value: 73.1; Range: 95.0-99.0; Abnormal: Below low normal; Units: %; Status: F Test: ABG DEVICE; Value: NASAL AVI; Status: F Lab Order: COMPLETE BLOOD COUNT; [facility] 04/03/16 08:21 Test: WHITE BLOOD COUNT; Value: 19.3; Range: 4.0-10.0; Abnormal: Above high normal; Units: K/mm3; Status: F Test: RED BLOOD COUNT; Value: 4.30; Range: 4.00-5.40; Units: M/mm3; Status: F Test: HEMOGLOBIN; Value: 13.3; Range: 12.0-16.0; Abnormal: Delta; Units: g/dl; Status: F Test: HEMATOCRIT; Value: 39.5; Range: 36.0-47.0; Units: %; Status: F Test: MEAN CORPUSCULAR VOLUME; Value: 91.8; Range: 80.0-96.0; Units: fl; Status: F Test: MEAN CORPUSCULAR HEMOGLOBIN; Value: 31.0; Range: 27.0-33.0; Units: pg; Status: F Test: MEAN CORPUSCULAR HGB CONC; Value: 33.8; Range: 32.0-36.5; Units: g/dl; Status: F Test: RED CELL DISTRIBUTION WIDTH; Value: 13.0; Range: 11.5-14.5; Units: %; Status: F Test: PLATELET COUNT, AUTOMATED; Value: 201; Range: 150-450; Units: k/mm3; Status: F Lab Order: BASIC METABOLIC PROFILE; [facility] 04/03/16 08:21 Test: GLUCOSE, FASTING; Value: 170; Range: 70-105; Abnormal: Above high normal; Units: MG/DL; Status: F Test: BLOOD UREA NITROGEN; Value: 15; Range: 7-18; Abnormal: Delta; Units: MG/DL; Status: F Test: CREATININE FOR GFR; Value: 1.10; Range: 0.55-1.02; Abnormal: Above high normal; Units: MG/DL; Status: F Test: GLOMERULAR FILTRATION RATE; Value: 56.2; Range: >58; Abnormal: Below low normal; Status: F Test: SODIUM LEVEL; Value: 142; Range: 136-145; Units: MEQ/L; Status: F Test: POTASSIUM SERUM; Value: 4.1; Range: 3.5-5.1; Units: MEQ/L; Status: F Test: CHLORIDE LEVEL; Value: 110; Range: 98-107; Abnormal: Above high normal; Units: MEQ/L; Status: F Test: CARBON DIOXIDE LEVEL; Value: 21; Range: 21-32; Units: MEQ/L; Status: F Test: ANION GAP; Value: 11; Range: 8-16; Units: MEQ/L; Status: F Test: CALCIUM LEVEL; Value: 8.9; Range: 8.5-10.1; Units: MG/DL; Status: F Test Note: ; Units are mL/min/1.73 m2 Chronic Kidney Disease Staging per NKF: Stage I & II GFR >=60 Normal to Mildly Decreased Stage III GFR 30-59 Moderately Decreased Stage IV GFR 15-29 Severely Decreased Stage V GFR <15 Very Little GFR Left ESRD 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 <15 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 Lab Order: LACTIC ACID LEVEL, LACTATE; SPEC'M 04/02/16 21:57 Test: LACTIC ACID SEPSIS PROTOCOL; Value: 2.8; Range: 0.4-2.0; Abnormal: Above upper panic limits; Units: MMOL/L; Status: F Lab Order: RESPIRATORY PANEL; SPEC'M 04/02/16 22:10 Test: RESPIRATORY PANEL; Value: RP PANEL RESULT NEGATIVE by PCR; Status: F Test: RESPIRATORY PANEL; Value: Comments:; Status: F Test Note: ; This respiratory PCR panel detects Influenza A H1, H3 and 2009 H1 viruses, Influenza B virus, Respiratory syncytial virus, Human metapneumovirus, Parainfluenza virus 1, 2, 3 and 4, Adenovirus, Rhinovirus/Enterovirus, Coronavirus HKU1, NL63, OC43 and 229E, Bordetella pertussis, Mycoplasma pneumoniae and Chlamydia pneumoniae. Lab Order: C REACTIVE PROTEIN QUANTITATIV; [facility]' 04/02/16 16:53 Test: C REACTIVE PROTEIN QUANTITATIV; Value: 2.44; Range: 0.00-0.30; Abnormal: Above high normal; Units: MG/DL; Status: F Lab Order: Fingerstick Blood Sugar; [facility]' 04/02/16 22:45 Test: BEDSIDE GLUCOSE; Value: 289; Range: 70-105; Abnormal: Above high normal; Units: MG/DL; Status: F Lab Order: LACTIC ACID LEVEL, LACTATE; [facility]' 04/03/16 08:21 Test: LACTIC ACID SEPSIS PROTOCOL; Value: 3.4; Range: 0.4-2.0; Abnormal: Above upper panic limits; Units: MMOL/L; Status: F Lab Order: C REACTIVE PROTEIN QUANTITATIV; [facility] 04/03/16 08:21 Test: C REACTIVE PROTEIN QUANTITATIV; Value: 8.49; Range: 0.00-0.30; Abnormal: Above high normal; Units: MG/DL; Status: F Lab Order: Fingerstick Blood Sugar; [facility] 04/03/16 07:44 Test: BEDSIDE GLUCOSE; Value: 208; Range: 70-105; Abnormal: Above high normal; Units: MG/DL; Status: F Lab Order: Fingerstick Blood Sugar; [facility] 04/03/16 11:46 Test: BEDSIDE GLUCOSE; Value: 120; Range: 70-105; Abnormal: Above high normal; Units: MG/DL; Status: F Radiology Order: EKG-ADULT Test: EKG-ADULT REASON FOR EXAMINATION: Chest Pain; Stationary ECG Study; [facility] - ED; ; Test Date: 2016-04-02; Pat Name: CYNTHIA PEREZCLAIR Department:; Room: -; Gender: F Spouter: ; : 1965 Requested By: JOSLYN Marks; Order Number: [id number] Reading MD: Solomon Mantilla; Measurements; Intervals [place]; Rate: 132 P: 63; CO: 143 QRS: -43; QRSD: 94 T: 79; QT: 322; QTc: 477; Interpretive Statements; ELECTRONIC VENTRICULAR PACEMAKER; ABNORMAL RHYTHM ECG; ; Electronically Signed On 04-02-2016 18:22:28 EST by Solomon Mantilla; Radiology Order: Chest, 1 View Test: Chest, 1 View REASON FOR EXAMINATION: Chest Pain; Clinical: Chest pain .; ; Comparison: 08/30/2015 .; ; Findings:; The mediastinum and cardiac silhouette are stable and within normal limits for; portable technique. Pacemaker again identified. The lung hinojosa demonstrate; chronic changes without acute consolidation, effusion, or pneumothorax. Skeletal; structures are intact.; ; Impression:; No acute cardiopulmonary process.; ; ; Signed by; Saurav Villalpando MD 04/02/2016 04:51 P; Radiology Order: CT Head Without Contrast Test: CT Head Without Contrast REASON FOR EXAMINATION: AMS; Clinical: Altered mental status .; ; Comparison: 04/22/2012 .; ; Findings:; The ventricles, sulci, and cisterns are normal in position and appearance.; [place]-white differentiation is maintained. No acute intracranial hemorrhage,; mass/mass effect, pathology or trauma/injury. No evidence for acute infarction.; No extra-axial fluid collection. Calvarium is intact. Paranasal sinuses and; mastoid air cells are clear.; ; Impression:; Normal noncontrast head CT.; No evidence for acute intracranial pathology or trauma/injury.; ; ; Signed by; Saurav Villalpando MD 04/03/2016 08:01 A; Radiology Order: CT Chest Without Contrast Test: CT Chest Without Contrast REASON FOR EXAMINATION: Shortness of Breath; Clinical: Shortness of breath.; ; Comparison: 10/14/2010.; ; Findings:; Mild chronic emphysematous changes are appreciated with primarily by apical; subpleural bullae and minimal bronchiectasis. Subtle superimposed acute alveolar; infiltrates involve primarily the right upper lobe, right lower lobe and right; middle lobe and to a lesser extent the perihilar left lung. No focal nodule or; mass lesion. Mild reactive adenopathy in the mediastinum and high right hilum; suggested. No pleural effusion/reaction or pneumothorax. Heart and pericardium; are stable.; ; Impression:; Evidence to suggest bronchitis with early multifocal pneumonia. Correlation is; recommended. Mild underlying emphysematous changes.; ; ; Signed by; Saurav Villalpando MD 04/03/2016 08:03 A; Outcome: 20:18 Decision to Hospitalize by Provider. mm11 04/03 15:14 Discharge Assessment: patient administered narcotics - yes. Patient was admitted to the [address] or transferred to another facility. The following High Risk Discharge criteria are identified: None. Admitted PACU holding, accompanied by nurse, accompanied by tech, with oxygen, on monitor, with chart. Condition: stable. No special radiology studies were completed. Property :Personal belongings accompany Pt. 15:28 [place]. [facility] [place]: Dispatcher [employer] EDMS Flakita Tang Kristin kt1 Denise Agosto, Technical Inspector Unit ml3 Jen Troy,PIPER HELPER PIPER HELPER ca3 Gray Torres, DO mm11 Ann Rivera mt4 Gray Carrington, RN RN ml6 Courtney Bhatt, UNIT TRUST MANAGER UNIT TRUST MANAGER ar3 Valentina Tinsley,RN RN js13 Catina Calderon, UNIT TRUST MANAGER UNIT TRUST MANAGER amyf Teresa Perry,RN RN [email or web address] Lucretia Velazquez Michael,RN RN mb9 Joslyn Huddleston MD MD fg Nichols, Crystal, UNIT TRUST MANAGER UNIT TRUST MANAGER cln ASHU
--- NOTE | 2016-04-03 15:28 | EDDOCDS ---
Physician Documentation [facility] Name: Cynthia Hennessy Age: 50 yrs Sex: Female : 1965 Arrival Date: 04/02/2016 Time: 15:39 Bed Admit Hold Private MD: Alla Fernandes C Disposition: 04/02/16 20:18 Hospitalization ordered by Leonidas Tomlinson for Inpatient Admission. Preliminary diagnosis are Lobar pneumonia, unspecified organism - RUL, RML, RLL - aspiration, Altered mental status, unspecified, Acute and chronic respiratory failure with hypoxia, Alcohol use, unspecified with intoxication. - Bed requested for Admit. - Status is Inpatient Admission. me3 - Condition is Stable. - Problem is an acute exacerbation. - Symptoms have improved. Historical: - Allergies: IV Dye; SULFA (SULFONAMIDES); - Home Meds: 1. Advair Diskus inhalation Inhl 2 times per day 2. Albuterol Inhl as needed 3. Baclofen Oral Unknown as needed 4. Digoxin Oral once daily 5. Eliquis oral Unknown 2 times per day 6. Gabapentin Oral 3 times per day 7. losartan oral Unknown 2 times per day 8. metformin 1,000 mg Oral tab 1 tab 2 times per day 9. Naprosyn Oral as needed 10. Spiriva with HandiHaler 18 mcg Inhl CpDv 1 cap once daily - PMHx: Atrial Fib; COPD; Diabetes - NIDDM: controlled; Hypertension; LBBB; - PSHx: kidney surgery; Chest Tube- Right; defibbrilator placement; Pacemaker Insertion; heart cath; ; - Social history: Smoking status: Patient uses tobacco products, current every day smoker. No barriers to communication noted, The patient speaks fluent Korean. - Family history: Not pertinent. - : The pt / caregiver states he / she is on anticoagulants: Eliquis Home medication list is obtained from the patient, THYME import data. - Exposure Risk Screening:: None identified. TUBE SPLICER: 04/02 15:42 LMP N/A - Post-menopause ml6 15:51 LMP N/A - Hysterectomy js13 Vital Signs: 15:42 BP 140 / 76; Pulse 120; Resp 18; Temp 96.8(TE); Pulse Ox 94% on R/A; Weight 54.43 kg / ml6 120 lbs (R); Height 5 ft. 1 in. (154.94 cm) (R); Pain 0/10; 15:47 BP 140 / 76 (auto/); js13 16:00 BP 123 / 64 (auto/); mb9 16:00 Pulse 118 MON; Pulse Ox 84% on 3 lpm NC; mb9 16:14 Pulse 115 MON; Pulse Ox 82% on 3 lpm NC; mb9 16:15 BP 135 / 83 (auto/); mb9 16:30 BP 126 / 66 (auto/); mb9 16:33 Pulse 118 MON; Pulse Ox 80% on 3 lpm NC; mb9 17:00 BP 124 / 65 (auto/); mb9 17:01 Pulse 117 MON; Pulse Ox 90% on Venturi mask; mb9 17:15 BP 142 / 77 (auto/); mb9 17:15 Pulse 118 MON; Pulse Ox 97% on Venturi mask; mb9 17:30 BP 123 / 65 (auto/); mb9 17:31 Pulse 134 MON; Pulse Ox 99% on Venturi mask; mb9 17:45 BP 123 / 58 (auto/); mb9 17:46 Pulse 130 MON; Pulse Ox 98% on Venturi mask; mb9 18:00 BP 128 / 62 (auto/); mb9 18:01 Pulse 126 MON; Pulse Ox 98% on Venturi mask; mb9 18:15 BP 117 / 57 (auto/); mb9 18:16 Pulse 122 MON; Pulse Ox 96% on Venturi mask; mb9 18:30 BP 123 / 58 (auto/); mb9 18:31 Pulse 120 MON; Pulse Ox 98% on Venturi mask; mb9 18:45 BP 120 / 56 (auto/); mb9 18:46 Pulse 119 MON; Pulse Ox 96% on Venturi mask; mb9 19:00 BP 106 / 68 (auto/); mb9 19:01 Pulse 109 MON; Pulse Ox 96% on Venturi mask; mb9 19:14 Pulse 109 MON; Pulse Ox 96% on Venturi mask; mb9 19:15 BP 121 / 59 (auto/); mb9 19:30 BP 116 / 59 (auto/); mb9 19:31 Pulse 107 MON; Pulse Ox 100% on Venturi mask; mb9 19:45 BP 121 / 59 (auto/); mb9 19:46 Pulse 106 MON; Pulse Ox 96% on Venturi mask; mb9 20:08 Pulse Ox 93% on R/A; mb9 20:16 BP 127 / 74 (auto/); mb9 20:17 Pulse 108 MON; Pulse Ox 95% ; mb9 21:16 BP 118 / 64 (auto/); mb9 21:17 Pulse 92 MON; Pulse Ox 96% ; mb9 15:42 Body Mass Index 22.67 (54.43 kg, 154.94 cm) ml6 16:00 pt continues to remove nasal cannula. pt advised to leave nasal cannula in place. mb9 16:14 pt continues to remove nasal cannula. pt advised to leave nasal cannula in place. mb9 16:33 pt continues to remove nasal cannula. pt advised to leave nasal cannula in place. mb9 MDM: 15:49 Consult PFS/PSA/Account Clerk ordered. fg 15:49 Consult PFS/PSA/Account Clerk: Patient's case requires discussion with on-call fg Psychiatrist ordered. 15:49 PSA/PFS to call Nursing Mobility Manager, to enter patient data on [place] Safe Act if patient fg involuntarily admitted or transferred for SI or HI ordered. 15:49 Confirm accurate psychiatric medication list and times of last dosage ordered. fg 15:49 Detain Pt Until Medically/PFS Cleared ordered. fg 15:49 IV Saline Lock ordered. fg 15:49 Solu-MEDROL 125 mg IVP once ordered. fg 15:49 Albuterol-Ipratropium 3 ml Inhalation once ordered. fg 15:49 Call Respiratory ordered. fg 15:50 -Arterial Blood Gas Ordered. EDMS 15:50 Acetaminophen Level Ordered. EDMS 15:50 Basic Metabolic Profile Ordered. EDMS 15:50 Complete Blood Count Ordered. EDMS 15:50 Drug Eval Toxicology ED Only Ordered. EDMS 15:50 Ethyl Alcohol (ethanol) Ordered. EDMS 15:50 Liver Profile Ordered. EDMS 15:50 Salicylate Level Ordered. EDMS 15:50 Thyroid Stimulating Hormone Ordered. EDMS 15:50 Call Respiratory complete. jlf 15:50 BNP Ordered. EDMS 15:50 Digoxin Level Ordered. EDMS 15:50 ECG WITH READING ER PHYS+CARDIAG ordered. EDMS 15:51 Chest, 1 View Ordered. EDMS 15:51 CT Head Without Contrast Ordered. EDMS 15:55 CT Chest Without Contrast Ordered. EDMS 16:57 Financial registration complete. [facility] 16:59 [facility] Payment Agreement was scanned into [employer] and attached to record. [facility] 17:05 Ondansetron 4 mg IVP once ordered. fg 17:19 Albuterol 5 mg Nebulizer once ordered. fg 17:20 ketorolac 30 mg IVP once ordered. fg 17:51 Call Respiratory ordered. fg 17:51 -Arterial Blood Gas Ordered. EDMS 17:57 Call Respiratory complete. ar3 18:26 Piperacillin-Tazobactam 3.375 grams IVPB once over 30 mins; dilute in 50mL of NS or D5W fg ordered. 19:01 BED REQUEST+ADM ordered. EDMS 20:12 Oxazepam 30 mg PO once ordered. mm11 20:13 vancomycin (loading dose for pt. wt. 50-59kg) 1250 mg IVPB once ordered. mm11 20:33 COMPLETE BLOOD COUNT Ordered. EDMS 20:34 BASIC METABOLIC PROFILE Ordered. EDMS 20:36 Admission / Observation Status ordered. EDMS 21:15 ELECTROCARDIOGRAM ADULT ordered. EDMS 21:16 URINALYSIS Ordered. EDMS 21:35 LACTIC ACID LEVEL, LACTATE Ordered. EDMS 21:40 RESPIRATORY PANEL Ordered. EDMS 21:42 SPUTUM CULTURE AND GRAM STAIN Ordered. EDMS 21:58 BLOOD CULTURES Ordered. EDMS 21:58 BLOOD CULTURES Ordered. EDMS 22:05 CONSISTENT CARBOHYDRATES ordered. EDMS 22:52 Fingerstick Blood Sugar Ordered. EDMS 02 03:10 LACTIC ACID LEVEL, LACTATE Ordered. EDMS 07:08 Attending Doctor Change: ordered. EDMS 07:09 MRSA SCREEN Ordered. EDMS 07:19 C REACTIVE PROTEIN QUANTITATIV Ordered. EDMS 07:54 PCR was scanned into [employer] and attached to record. mt4 07:56 Fingerstick Blood Sugar Ordered. EDMS 12:53 LACTIC ACID LEVEL, LACTATE Ordered. EDMS Point of Care Testing: Blood Glucose: 04/02 22:46 Blood Glucose: 289 mg/dL; mb9 Ranges: Administered Medications: 16:16 Drug: Solu-MEDROL 125 mg [Solu-Medrol 500 mg intravenous solution (125 mg)] Route: IVP; js13 Site: right antecubital; 16:39 Drug: Albuterol-Ipratropium 3 ml [ipratropium-albuterol 0.5 mg-3 mg(2.5 mg base)/3 mL lb nebulization soln (3 mL)] Route: Inhalation; 17:16 Drug: Ondansetron 4 mg [ondansetron HCl 2 mg/mL intravenous solution (2 mL)] Route: mb9 IVP; Site: right antecubital; 17:25 Drug: ketorolac 30 mg [ketorolac 30 mg/mL (1 mL) injection solution (1 mL)] Route: IVP; mb9 Site: right antecubital; 18:00 Drug: Albuterol 5 mg [albuterol sulfate 2.5 mg/0.5 mL solution for nebulization (1 mL)] kt1 Route: Nebulizer; 18:40 Drug: Piperacillin-Tazobactam 3.375 grams [piperacillin-tazobactam 3.375 gram mb9 intravenous solution] Route: IVPB; Infused Over: 30 mins; Site: right antecubital; 23:50 Follow up: IV Intake: 50ml mb9 20:47 Drug: Oxazepam 30 mg [oxazepam 15 mg capsule (2 caps)] Route: PO; mb9 20:47 Drug: vancomycin (loading dose for pt. wt. 50-59kg) 1250 mg [vancomycin 500 mg mb9 intravenous solution] Route: IVPB; Site: right antecubital; 23:51 Follow up: IV Intake: 500ml mb9 Signatures: Dispatcher [employer] EDMS Jen Troy,[employer] me3 Gray Carrion, DO mm11 Miguel, Ann mt4 Courtney Bhatt, INSPECTOR PAWNSHOP DETAIL INSPECTOR PAWNSHOP DETAIL ar3 Valentina Tinsley RN RN js13 Catina Calderon, INSPECTOR PAWNSHOP DETAIL INSPECTOR PAWNSHOP DETAIL Lucretia Dickens Frances, MD MD fg Bickel, Lindsay lb Chatterton, Kristin kt1 Zac Correa RN mb9 The chart was reviewed and I authenticate all verbal orders and agree with the evaluation and treatment provided.Corrections: (The following items were deleted from the chart) 15:58 15:51 CT ANGIO CHEST+CT ordered. EDMS EDMS 22:05 20:36 REGULAR DIET ordered. EDMS EDMS 22:17 22:05 C REACTIVE PROTEIN QUANTITATIV ordered. EDMS EDMS 04/03 07:19 07:11 C REACTIVE PROTEIN QUANTITATIV ordered. EDMS EDMS Attachments: 04/02 16:59 [facility] Payment Agreement [facility]
--- NOTE | 2016-04-03 17:53 | ECGEPIP ---
Stationary ECG Study [facility] Test Date: 2016-04-02 Pat Name: JOZEF RESTREPO Department: Room: [place] [address] Gender: F Weight Caller: OgB: 1965 Requested By: MIGUELANGEL Tobin Order Number: [id number] Reading MD: José Miguel Bates Measurements Intervals [place] Rate: 88 P: 49 [place]: 171 QRS: -36 QRSD: 110 T: 80 QT: 396 QTc: 479 Interpretive Statements Normal sinus rhythm Atrial sensing and tracking with consistent ventricular paced rhythm Left axis and Left bundle branch block configuration consistent with RV apical stimulation Considerably slower rate than earlier this same day. Electronically Signed On 04-03-2016 17:53:12 EST by José Miguel Bates
[2016-04-03] MEDS: APIXABAN 5 MG TAB (ELIQUIS) PO SCH (20:12)
[2016-04-03] MEDS: OXAZEPAM 10 MG CAP PO PRN (20:13)
[2016-04-04] MEDS: diphenhydrAMINE 25 MG CAP PO PRN (01:58)
[2016-04-04 04:00] VITALS: BP 146/69
[2016-04-04] MEDS: methylPREDNISolone INJ 125 MG/2 ML VIAL (J2930) IV SCH (04:08)
[2016-04-04] MEDS: ACETAMINOPHEN TAB 650MG DOSE (2X325MG) PO PRN ×2 (04:30→15:44)
[2016-04-04] MEDS: OXAZEPAM 15 MG CAP PO SCH (05:00)
[2016-04-04] MEDS: NS 1,000 ML IV SCH (06:15)
[2016-04-04 06:31] LABS: MEAN CORPUSCULAR HEMOGLOBIN 30.8 pg (27.0-33.0); MEAN CORPUSCULAR HGB CONC 33.7 g/dl (32.0-36.5); MEAN CORPUSCULAR VOLUME 91.4 fl (80.0-96.0); RED CELL DISTRIBUTION WIDTH 13.2 % (11.5-14.5); WHITE BLOOD COUNT 14.3 K/mm3 (4.0-10.0)
[2016-04-04 06:51] LABS: ANION GAP 9 MEQ/L (8-16); BLOOD UREA NITROGEN 14 MG/DL (7-18); CALCIUM LEVEL 8.2 MG/DL (8.5-10.1); CARBON DIOXIDE LEVEL 22 MEQ/L (21-32); CHLORIDE LEVEL 113 MEQ/L (98-107); CREATININE FOR GFR 0.85 MG/DL (0.55-1.02); GLOMERULAR FILTRATION RATE > 60.0 (>58); GLUCOSE, FASTING 145 MG/DL (70-105); MAGNESIUM LEVEL 2.3 MG/DL (1.8-2.4); POTASSIUM SERUM 4.1 MEQ/L (3.5-5.1); SODIUM LEVEL 144 MEQ/L (136-145)
[2016-04-04 08:00] VITALS: BP 154/74
[2016-04-04] MEDS: IPRATROPIUM 0.5MG/ALBUTEROL 2.5MG INH SOL UD 3ML (DUONEB)(J7620) NEB SCH ×3 (08:00→16:31)
[2016-04-04] MEDS: TIOTROPIUM INHALER/CAPSULE (SPIRIVA) INH SCH (08:09)
[2016-04-04] MEDS: ADVAIR DISKUS 250/50 INH PWD INH SCH ×2 (08:09→20:07)
[2016-04-04] MEDS: FOLIC ACID 1 MG TAB PO SCH (08:25)
[2016-04-04] MEDS: DOCUSATE SODIUM 100 MG CAP PO SCH ×2 (08:25→20:18)
[2016-04-04] MEDS: THIAMINE 100 MG TAB PO SCH (08:25)
[2016-04-04] MEDS: PIPERACILLIN/TAZOBACTAM SOD 3.375 GM in D5W MINI-BAG PLUS 50 ML IV SCH ×2 (08:25→15:46)
[2016-04-04] MEDS: HumaLOG INSULIN (NovoLOG) PER UNIT SC SCH ×4 (08:25→20:19)
[2016-04-04] MEDS: GABAPENTIN 300 MG CAP PO SCH ×3 (08:25→20:18)
[2016-04-04] MEDS: DIGOXIN 0.25 MG TAB PO SCH (08:26)
[2016-04-04] MEDS: LOSARTAN 50 MG TAB PO SCH (08:26)
[2016-04-04] MEDS: NICOTINE 14 MG/24 HR TRANSDERMAL TD SCH (08:26)
[2016-04-04] MEDS: APIXABAN 5 MG TAB (ELIQUIS) PO SCH ×2 (08:27→20:18)
[2016-04-04] MEDS: METOPROLOL SUCC (TopROL XL) 50MG **XL** TAB PO SCH (08:27)
[2016-04-04] MEDS: MULTIVITAMINS/MINERALS THERAP 1 TAB PO SCH (08:27)
--- NOTE | 2016-04-04 09:57 | IPN ---
DATE: 04/03/2016 Patient admitted overnight. Currently reported coughing and mild dyspnea. Comfortable. Denies any chest pain, pressure, or discomfort. Patient reported vaguely that she is drinking a lot, reported that she might be using opiates, that she has a history of drug abuse, but she has not been doing it, but then she changes her story. Also with tachycardia, mildly anxious. VITAL SIGNS: Temperature 97.8, pulse 92, respirations 16, blood pressure 146/70, pulse oximetry 100% on three liters nasal cannula. LABORATORY DATA: WBC 19.3, hemoglobin and hematocrit 13.3/39.5, platelets 201. Chemistry: Sodium 142, potassium 4.1, chloride 110, bicarbonate 21, BUN 15, creatinine 1.1, lactic acid 3.4, 3.3, 1.7, C-reactive protein 8.49. PHYSICAL EXAMINATION: GENERAL: Patient alert and oriented times three, mild cough, no acute distress. HEENT: Normocephalic, atraumatic. PULMONARY: Coarse breath sounds bilaterally, bilateral expiratory wheeze. ABDOMEN: Soft, nontender, nondistended, positive bowel sounds. EXTREMITIES: No edema bilateral lower extremities. ASSESSMENT AND PLAN: This is a 50-year-old female patient with underlying medical history of atrial fibrillation with pacemaker, chronic obstructive pulmonary disease (COPD), diabetes type 2, history of left bundle branch block, hypertension, hepatitis C, polysubstance abuse with heroin abuse, neuropathy related to her diabetes, as well as alcohol and tobacco abuse, patient presented to the emergency department (ED), found down at home with altered mental status, did respond to Narcan in the field, however she has 2-3 weeks of febrile illness with productive cough, fever, chills, rigors, and does appear to have multilobar pneumonia on CT scan. 1. Metabolic encephalopathy, possibly secondary to underlying infection versus narcotic abuse. Given Narcan in the field. Continue to monitor mental status. Treatment for underlying infection as below. 2. History of polysubstance abuse and alcohol abuse. Serax, standing and as needed. Monitor for withdrawal. Folic acid, multivitamin, and B12. Taper Serax as tolerated. 3. Lactic acidosis likely secondary to underlying respiratory distress. Treatment for underlying infection as mentioned below. Intravenous (IV) fluids. Repeat lactic acid. 4. Acute chronic obstructive pulmonary disease (COPD) exacerbation secondary to community-acquired bacterial pneumonia versus aspiration pneumonia. Patient currently on Zosyn, full coverage for multilobar pneumonia. Followup lactic acid, followup C-reactive protein, followup white blood cells (WBCs). Solu-Medrol, nebulizer treatments, Spiriva, Advair, oxygen supplementation, titrate as tolerated. 5. Smoking. Counseling provided, nicotine patch. 6. Acute hypoxic respiratory failure secondary to aspiration versus community-acquired bacterial pneumonia. Oxygen supplementation. Treatment for underlying infection as mentioned above. 7. Polysubstance abuse. formula room worker consulted. 8. Bipolar disorder. Continue home medication. 9. History of hepatitis C in the past. Received outpatient therapy with Dr. Diaz. 10. Atrial fibrillation. Continue digoxin, beta blockers, telemetry monitoring. 11. Neuropathy. Continue home medication. 12. Diabetes. Insulin as per protocol. Withholding oral medications. 13. Deep venous thrombosis (DVT) prophylaxis. Will discontinue Lovenox and restart Eliquis. DISPOSITION: Pending clinical improvement.
[2016-04-04 12:00] VITALS: BP 142/71
[2016-04-04] MEDS: predniSONE 20 MG TAB PO SCH (12:05)
--- NOTE | 2016-04-04 14:41 | IPNPDOC ---
Date Seen The patient was seen on 04/04/16. Progress Note SUBJECTIVE: The patient tells me she still has some difficulty with breathing and some heaviness with taking deep breaths but no chris pain no chest pain no lightheadedness dizziness diaphoresis nausea or vomiting fevers or chills OBJECTIVE PHYSICAL EXAMINATION: VITAL SIGNS: MAXIMUM TEMPERATURE 99.4 Please see below. GENERAL: Disheveled middle-aged female sitting in the bed she does not appear to be in any acute distress appears mildly tired HEENT: Cranial nerves II through XII grossly intact is moist pedis membranes elevation CVP CARDIOVASCULAR: S1-S2 regular. RESPIRATORY: Good air movement some end-expiratory wheezes throughout. ABDOMINAL: Bowel sounds Present abdomen soft and nontender EXTREMITIES: No clubbing cyanosis or edema LABORATORY DATA: On arrival urine toxicology was positive for ethyl alcohol cannabis and opiates Please see below. MICROBIOLOGY: Please see below. IMAGING: Patient is CT scan of the chest that revealed bronchitis with early multifocal pneumonia Patient had a CT scan of the head which revealed normal noncontrast study DVT prophylaxis ordered?: Eliquis 5 mg twice a day ASSESSMENT AND PLAN: This is a [id number] with metabolic encephalopathy and community acquired pneumonia . PROBLEMS: 1. Community acquired pneumonia: The patient did present with cough and low- grade temperatures there is concern for aspiration versus community-acquired pneumonia CT imaging concerning for multilobar pneumonia she did have an elevated lactic acid upon arrival which has resolved she's continued on Zosyn and will continue follow-up her cultures at the present time she does appear to be improving. 2. COPD: Possibly an acute decompensation the patient has a history of COPD and ongoing tobacco use cessation counseling offered she is currently on Solu- Medrol nebulizer treatments. She is using a nicotine patch her supplemental O2 has been weaned. 3. Narcotic abuse likely heroin: Patient presented encephalopathic she did respond to Narcan in the field suspect that a great deal of her respiratory difficulty possibly instigating factor for an aspiration event secondary to narcotic overdose substance abuse counseling provided. 4. Metabolic encephalopathy: Likely secondary narcotics abuse resolved patient awake alert and oriented at this time. 5. Alcohol abuse: Patient is on folic acid multivitamin as well as B12 she is on Serax when necessary not exhibiting any signs or symptoms of withdrawal at this time cessation counseling provided 6. Tobacco abuse: Nicotine patch provided cessation counseling provided 7. Hepatitis C: Follows up with outpatient doctor do as she is receiving therapy for this 8 atrial fibrillation: Patient is rate controlled with digoxin and beta blockers she is anticoagulated with Eliquis 9. Type 2 diabetes: The patient on sliding scale insulin her finger are controlled, the patient has neuropathy and she is on Neurontin as well 10. Hypertension: Controlled the patient is on Toprol-XL and Cozaar DISPOSITION: Patient is improving and will be downgraded medical surgical floor status. VS, I&O, 24H, Fishbone Vital Signs/I&O Vital Signs Date Time Temp Pulse Resp B/P Pulse Ox O2 Delivery O2 Flow Rate FiO2 04/04/16 12:00 99.4 99 18 142/71 95 Room Air 04/04/16 00:00 2.5 04/03/16 00:00 40 I&O- Last 24 Hours up to 6 AM 04/04/16 06:00 Intake Total 1430 ml Output Total 850 ml Balance 580 ml Laboratory Data 24H LABS Laboratory Tests 2 04/03/16 16:19: Lactic Acid (Sepsis) 3.3*H 04/03/16 17:00: Bedside Glucose (Misc Panel) 152H 04/03/16 20:16: Bedside Glucose (Misc Panel) 160H 04/03/16 20:45: Lactic Acid Level 2.2*H 04/04/16 06:05: Anion Gap 9, C-Reactive Protein, Quantitative 3.99H, Blood Urea Nitrogen 14, Creatinine 0.85, Sodium Level 144, Potassium Level 4.1, Chloride Level 113H, Carbon Dioxide Level 22, Calcium Level 8.2L, Glomerular Filtration Rate > 60.0, Lactic Acid (Sepsis) 1.1, Magnesium Level 2.3 CBC/BMP Laboratory Tests 04/04/16 06:05 Calcium Level 8.2 L, Red Blood Count 4.13, Mean Corpuscular Volume 91.4, Mean Corpuscular Hemoglobin 30.8, Mean Corpuscular Hemoglobin Concent 33.7, Red Cell Distribution Width 13.2 Microbiology Microbiology 04/02/16 Blood Culture - Preliminary, Resulted No growth after 24 hours . All specim... 04/02/16 Blood Culture - Preliminary, Resulted No growth after 24 hours . All specim... 04/02/16 Respiratory Virus Panel (PCR) (GERBER) - Final, Complete HOLLI SAHA MD Apr 04, 2016 14:41
[2016-04-04] MEDS: OXAZEPAM 10 MG CAP PO PRN ×2 (15:44→20:18)
[2016-04-04] MEDS ORDERED: NITROGLYCERIN 0.4 MG SUBL TABLET SL STA (17:32)
[2016-04-04] MEDS ORDERED: CALCIUM CARBONATE 500 MG CHEW U/D PO PRN (17:45)
[2016-04-04] MEDS: PANTOPRAZOLE 40MG INJ (PROTONIX) (C9113) IV SCH (17:51)
[2016-04-04 22:00] VITALS: BP 145/64
--- NOTE | 2016-04-04 22:36 | ECGEPIP ---
Stationary ECG Study [facility] Test Date: 2016-04-04 Pat Name: JOZEF RESTREPO Department: Room: [place] [address] Gender: F Supervisor Assembling: DIPAK : 1965 Requested By: HOLLI SAHA Order Number: [id number] Reading MD: Berlin Luz Measurements Intervals [place] Rate: 76 P: 53 [place]: 134 QRS: 12 QRSD: 136 T: 78 QT: 436 QTc: 493 Interpretive Statements Sinus rhythm, P-synchronous ventricle paced rhythm with 2 isolated PVCs. No significant change compared with 04/02/2016 at 21 and 16 hours. Electronically Signed On 04-04-2016 22:36:36 EST by Berlin Luz
[2016-04-05] MEDS: PIPERACILLIN/TAZOBACTAM SOD 3.375 GM in D5W MINI-BAG PLUS 50 ML IV SCH ×2 (00:38→08:26)
[2016-04-05] MEDS: IPRATROPIUM 0.5MG/ALBUTEROL 2.5MG INH SOL UD 3ML (DUONEB)(J7620) NEB SCH (00:40)
[2016-04-05] MEDS: diphenhydrAMINE 25 MG CAP PO PRN (00:53)
[2016-04-05] MEDS: PANTOPRAZOLE 40MG INJ (PROTONIX) (C9113) IV SCH (05:55)
[2016-04-05 06:00] VITALS: BP 178/65
[2016-04-05] MEDS: TIOTROPIUM INHALER/CAPSULE (SPIRIVA) INH SCH (06:53)
[2016-04-05] MEDS: ADVAIR DISKUS 250/50 INH PWD INH SCH (06:53)
[2016-04-05 07:10] LABS: MEAN CORPUSCULAR HEMOGLOBIN 31.1 pg (27.0-33.0); MEAN CORPUSCULAR HGB CONC 33.9 g/dl (32.0-36.5); MEAN CORPUSCULAR VOLUME 91.8 fl (80.0-96.0); RED CELL DISTRIBUTION WIDTH 13.3 % (11.5-14.5); WHITE BLOOD COUNT 11.9 K/mm3 (4.0-10.0)
[2016-04-05 07:16] LABS: ANION GAP 9 MEQ/L (8-16); BLOOD UREA NITROGEN 14 MG/DL (7-18); CALCIUM LEVEL 8.4 MG/DL (8.5-10.1); CARBON DIOXIDE LEVEL 23 MEQ/L (21-32); CHLORIDE LEVEL 114 MEQ/L (98-107); CREATININE FOR GFR 0.94 MG/DL (0.55-1.02); GLOMERULAR FILTRATION RATE > 60.0 (>58); GLUCOSE, FASTING 93 MG/DL (70-105); MAGNESIUM LEVEL 2.4 MG/DL (1.8-2.4); POTASSIUM SERUM 3.7 MEQ/L (3.5-5.1); SODIUM LEVEL 146 MEQ/L (136-145)
[2016-04-05] MEDS: HumaLOG INSULIN (NovoLOG) PER UNIT SC SCH (07:30)
[2016-04-05] MEDS: DIGOXIN 0.25 MG TAB PO SCH (08:27)
[2016-04-05] MEDS: predniSONE 20 MG TAB PO SCH (08:27)
[2016-04-05] MEDS: LOSARTAN 50 MG TAB PO SCH (08:27)
[2016-04-05 08:29] VITALS: BP 178/65
[2016-04-05] MEDS: APIXABAN 5 MG TAB (ELIQUIS) PO SCH (08:29)
[2016-04-05] MEDS: MULTIVITAMINS/MINERALS THERAP 1 TAB PO SCH (08:29)
[2016-04-05] MEDS: GABAPENTIN 300 MG CAP PO SCH (08:29)
[2016-04-05] MEDS: METOPROLOL SUCC (TopROL XL) 50MG **XL** TAB PO SCH (08:29)
[2016-04-05] MEDS: THIAMINE 100 MG TAB PO SCH (08:29)
[2016-04-05] MEDS: FOLIC ACID 1 MG TAB PO SCH (08:29)
[2016-04-05] MEDS: DOCUSATE SODIUM 100 MG CAP PO SCH (08:29)
[2016-04-05] MEDS: NICOTINE 14 MG/24 HR TRANSDERMAL TD SCH (08:30)
[2016-04-05] MEDS ORDERED: VITMTA PO (08:39)
[2016-04-05] MEDS ORDERED: LEVO500T32 PO (08:39)
[2016-04-05] MEDS ORDERED: FOLI1TAB2 PO (08:39)
[2016-04-05] MEDS ORDERED: THIA100TA PO (08:39)
[2016-04-05] MEDS ORDERED: NICO14PA TD (08:39)
[2016-04-05] MEDS: OXAZEPAM 10 MG CAP PO PRN (09:46)
--- NOTE | 2016-04-05 16:28 | EDDOCDS ---
Nurse's Notes [facility] Name: Cynthia Hennessy Age: 50 yrs Sex: Female : 1965 Arrival Date: 04/02/2016 Time: 15:39 Bed Admit Hold Private MD: Alla Fernandes C Diagnosis: Lobar pneumonia, unspecified organism-RUL, RML, RLL - aspiration;Altered mental status, unspecified;Acute and chronic respiratory failure with hypoxia;Alcohol use, unspecified with intoxication Presentation: 04/02 15:42 Presenting complaint: EMS states: "We were called to the house for the pt being mb9 unresponsive. We gave 6 mg of narcan and the pt began to wake up and become combative". Suicide/Homicide risk assessment- the patient denies having any suicidal and/or homicidal ideations and does not present with any other emotional, behavioral or mental health complaints. Status: Patient is not a tax services specialist or dependent. Transition of care: patient was not received from another setting of care. 15:42 Acuity: ELIAS Level 3 mb9 15:42 Method Of Arrival: Ambulance mb9 15:52 Adult Sepsis Screening: The patient does not have new or worsening altered mentation. js13 Patient's respiratory rate is less than 22. Systolic blood pressure is greater than 100. Patient has a qSOFA score of 0- Negative Sepsis Screen. Triage Assessment: 15:48 General: Appears ill. Pain: Denies pain. Pt Declines HIV testing. Neurological: Level js13 of Consciousness is awake, alert, obeys commands, Oriented to person, place, time. Cardiovascular: Rhythm is sinus tachycardia Chest pain is denied. Respiratory: Airway is patent Respiratory effort is even, labored, Respiratory pattern is tachypnea. Derm: Skin is normal. 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 Advair Diskus inhalation Inhl 2 times per day 2. Albuterol Inhl as needed 3. Baclofen Oral Unknown as needed 4. Digoxin Oral once daily 5. Eliquis oral Unknown 2 times per day 6. Gabapentin Oral 3 times per day 7. losartan oral Unknown 2 times per day 8. metformin 1,000 mg Oral tab 1 tab 2 times per day 9. Naprosyn Oral as needed 10. Spiriva with HandiHaler 18 mcg Inhl CpDv 1 cap once daily - PMHx: Atrial Fib; COPD; Diabetes - NIDDM: controlled; Hypertension; LBBB; - PSHx: kidney surgery; Chest Tube- Right; defibbrilator placement; Pacemaker Insertion; heart cath; ; - Social history: Smoking status: Patient uses tobacco products, current every day smoker. No barriers to communication noted, The patient speaks fluent [place]. - Family history: Not pertinent. - : The pt / caregiver states he / she is on anticoagulants: Eliquis Home medication list is obtained from the patient, [employer] import data. - Exposure Risk Screening:: None identified. Screenin/20 15:12 Screening information is obtained from the patient. Fall risk: No risks identified. me3 Assistance ADL's: requires no assistance with activities of daily living. Abuse/DV Screen: The patient / caregiver reports he/she is: not in a situation that causes fear, pain or injury. Nutritional screening: No deficits noted. Advance Directives: Currently, there is no health care proxy. home support is adequate. Assessment: 04/02 16:00 General: Appears uncomfortable, Behavior is anxious, fussy, inappropriate for age, mb9 restless. Respiratory: Airway is patent Respiratory effort is even, unlabored, Reports cough that is. 17:02 Reassessment: Patient states symptoms have improved. General: Appears uncomfortable, mb9 Behavior is fussy. Respiratory: Airway is patent Respiratory effort is even, unlabored, Breath sounds are clear bilaterally. Breath sounds are diminished in left posterior lower lobe, right posterior middle lobe and right posterior lower lobe. 18:24 Reassessment: Patient states symptoms have improved. General: Appears uncomfortable, mb9 Behavior is cooperative. Respiratory: Airway is patent Respiratory effort is even, unlabored, Breath sounds are coarse bilaterally. Breath sounds with wheezes bilaterally. 20:07 General: pt demanding to leave er at this time. dr torres notified. . mb9 21:56 Reassessment: Patient appears in no apparent distress at this time. Patient states mb9 feeling better. Patient states symptoms have improved. Adult Sepsis Screening: The patient does not have new or worsening altered mentation. Patient's respiratory rate is less than 22. Systolic blood pressure is greater than 100. Patient has a qSOFA score of 0- Negative Sepsis Screen. General: Appears comfortable, Behavior is cooperative. Respiratory: Airway is patent Respiratory effort is even, unlabored. 23:51 General: Dr Tomlinson notified of pt's lactic acid of 2.8. mb9 Vital Signs: 15:42 BP 140 / 76; Pulse 120; Resp 18; Temp 96.8(TE); Pulse Ox 94% on R/A; Weight 54.43 kg ml6 (R); Height 5 ft. 1 in. (154.94 cm) (R); Pain 0/10; 15:47 BP 140 / 76 (auto/); js13 16:00 BP 123 / 64 (auto/); mb9 16:00 Pulse 118 MON; Pulse Ox 84% on 3 lpm NC; mb9 16:14 Pulse 115 MON; Pulse Ox 82% on 3 lpm NC; mb9 16:15 BP 135 / 83 (auto/); mb9 16:30 BP 126 / 66 (auto/); mb9 16:33 Pulse 118 MON; Pulse Ox 80% on 3 lpm NC; mb9 17:00 BP 124 / 65 (auto/); mb9 17:01 Pulse 117 MON; Pulse Ox 90% on Venturi mask; mb9 17:15 BP 142 / 77 (auto/); mb9 17:15 Pulse 118 MON; Pulse Ox 97% on Venturi mask; mb9 17:30 BP 123 / 65 (auto/); mb9 17:31 Pulse 134 MON; Pulse Ox 99% on Venturi mask; mb9 17:45 BP 123 / 58 (auto/); mb9 17:46 Pulse 130 MON; Pulse Ox 98% on Venturi mask; mb9 18:00 BP 128 / 62 (auto/); mb9 18:01 Pulse 126 MON; Pulse Ox 98% on Venturi mask; mb9 18:15 BP 117 / 57 (auto/); mb9 18:16 Pulse 122 MON; Pulse Ox 96% on Venturi mask; mb9 18:30 BP 123 / 58 (auto/); mb9 18:31 Pulse 120 MON; Pulse Ox 98% on Venturi mask; mb9 18:45 BP 120 / 56 (auto/); mb9 18:46 Pulse 119 MON; Pulse Ox 96% on Venturi mask; mb9 19:00 BP 106 / 68 (auto/); mb9 19:01 Pulse 109 MON; Pulse Ox 96% on Venturi mask; mb9 19:14 Pulse 109 MON; Pulse Ox 96% on Venturi mask; mb9 19:15 BP 121 / 59 (auto/); mb9 19:30 BP 116 / 59 (auto/); mb9 19:31 Pulse 107 MON; Pulse Ox 100% on Venturi mask; mb9 19:45 BP 121 / 59 (auto/); mb9 19:46 Pulse 106 MON; Pulse Ox 96% on Venturi mask; mb9 20:08 Pulse Ox 93% on R/A; mb9 20:16 BP 127 / 74 (auto/); mb9 20:17 Pulse 108 MON; Pulse Ox 95% ; mb9 21:16 BP 118 / 64 (auto/); mb9 21:17 Pulse 92 MON; Pulse Ox 96% ; mb9 15:42 Body Mass Index 22.67 (54.43 kg, 154.94 cm) ml6 16:00 pt continues to remove nasal cannula. pt advised to leave nasal cannula in place. mb9 16:14 pt continues to remove nasal cannula. pt advised to leave nasal cannula in place. mb9 16:33 pt continues to remove nasal cannula. pt advised to leave nasal cannula in place. mb9 Vitals: 15:42 Log In Time N/A - ambulance arrival. ml6 ED Course: 15:40 Patient visited by Courtney Bhatt PCA. ar3 15:40 Valentina Tinsley,RN is Primary Nurse. ar3 15:40 Patient moved to Waiting ar3 15:40 Patient moved to 3 ar3 15:41 Alla Fernandes is Private Physician. ar3 15:45 Joslyn Huddleston MD is Attending Physician. fg 15:45 Patient visited by Joslyn Huddleston MD. fg 15:46 Triage Initiated mb9 15:50 Patient visited by Catina Calderon PCA. jlf 15:51 O2 via nasal cannula \\T\\ 3L/min. js13 15:52 Patient visited by Valentina Tinsley,ARTURO. js13 16:38 Inserted saline lock: 18 gauge in right antecubital area and blood collected. The mb9 patient tolerated the procedure well. 16:39 -Arterial Blood Gas Sent. lb 16:59 [facility] Payment Agreement was scanned into [employer] and attached to record. slh 17:02 Patient visited by Zac Correa,RN. mb9 17:10 Chest, 1 View Returned. EDMS 17:27 Patient visited by Catina Calderon PCA. jlf 17:27 quality assurance monitor final on. Pulse ox on. NIBP on. Notified attending ED physician of was unable jl to perform EKG until 1725. MD aware. . 17:27 EKG done. (by ED staff). Reviewed by Joslyn Huddleston MD. jlf 17:57 Patient visited by Catina Calderon PCA. jlf 17:57 Drug Eval Toxicology ED Only Sent. jlf 18:07 -Arterial Blood Gas Sent. kt1 18:27 Patient visited by Zac Correa RN. mb9 18:33 EKG-ADULT Returned. EDMS 19:15 Attending Physician role handed off by Joslyn Huddleston MD mm11 19:15 Gray Torres DO is Attending Physician. mm11 19:19 Primary Nurse role handed off by Valentina Tinsley RN ko2 19:32 Patient visited by Gray Torres DO. mm11 20:06 Patient visited by Zac Correa RN. mb9 20:09 Patient moved to 11 mb9 20:16 Patient visited by Gray Torres DO. mm11 20:17 Leonidas Tomlinson DO is Hospitalizing Provider. mm11 20:54 Patient moved to Admit Hold ml3 21:19 Patient visited by Lucille King PCA. cln 21:19 EKG done. (by ED staff). Reviewed by Leonidas Tomlinson DO. cln 21:56 URINALYSIS Sent. mb9 22:13 RESPIRATORY PANEL Sent. mb9 22:25 BLOOD CULTURES Sent. cln 04/03 07:54 PCR was scanned into [employer] and attached to record. mt4 08:12 CT Head Without Contrast Returned. EDMS 08:45 CT Chest Without Contrast Returned. EDMS 15:13 No procedures done that require assistance. me3 15:15 The patient / caregiver is instructed regarding the plan of care and ED course. me3 15:54 T-Sheet-- Draft Copy was scanned into [employer] and attached to record. gb 04/04 09:18 ECG/EKG was scanned into [employer] and attached to record. gb Administered Medications: 04/02 16:16 Drug: Solu-MEDROL 125 mg [Solu-Medrol 500 mg intravenous solution (125 mg)] Route: IVP; js13 Site: right antecubital; 16:39 Drug: Albuterol-Ipratropium 3 ml [ipratropium-albuterol 0.5 mg-3 mg(2.5 mg base)/3 mL lb nebulization soln (3 mL)] Route: Inhalation; 17:16 Drug: Ondansetron 4 mg [ondansetron HCl 2 mg/mL intravenous solution (2 mL)] Route: mb9 IVP; Site: right antecubital; 17:25 Drug: ketorolac 30 mg [ketorolac 30 mg/mL (1 mL) injection solution (1 mL)] Route: IVP; mb9 Site: right antecubital; 18:00 Drug: Albuterol 5 mg [albuterol sulfate 2.5 mg/0.5 mL solution for nebulization (1 mL)] kt1 Route: Nebulizer; 18:40 Drug: Piperacillin-Tazobactam 3.375 grams [piperacillin-tazobactam 3.375 gram mb9 intravenous solution] Route: IVPB; Infused Over: 30 mins; Site: right antecubital; 23:50 Follow up: IV Intake: 50ml mb9 20:47 Drug: Oxazepam 30 mg [oxazepam 15 mg capsule (2 caps)] Route: PO; mb9 20:47 Drug: vancomycin (loading dose for pt. wt. 50-59kg) 1250 mg [vancomycin 500 mg mb9 intravenous solution] Route: IVPB; Site: right antecubital; 23:51 Follow up: IV Intake: 500ml mb9 Point of Care Testing: Blood Glucose: 22:46 Blood Glucose: 289 mg/dL; mb9 Ranges: Intake: 23:50 IV: 50.00ml; Total: 50.00ml. mb9 23:51 IV: 500.00ml; Total: 550.00ml. mb9 RT: 16:39 ABG's drawn from right radial artery allens test done and positive pressure held for 5 lb minutes no bleeding noted pressure bandage applied specimen sent pt. tolerated well. Initial Med Neb Given as ordered Patient was instructed and evaluated on procedure Patient tolerated procedure well without adverse effect. Respiratory: Breath sounds are coarse bilaterally. 17:13 Subsequent Med Neb Given as ordered Patient tolerated procedure well without adverse lb effect. Respiratory: Breath sounds are coarse bilaterally. Breath sounds with wheezes at expiration. 17:13 O2 via Venturi mask \\T\\ 15L/min - 50%. lb 18:08 ABG's drawn from left radial artery pressure held for 5 minutes no bleeding noted kt1 pressure bandage applied specimen sent pt. tolerated well. Order Results: Lab Order: -Arterial Blood Gas; SPEC'M 04/02/16 16:10 Test: ABG pH (ARTERIAL); Value: 7.334; Range: 7.350-7.450; Abnormal: Below low normal; Units: UNITS; Status: F Test: ABG PARTIAL PRESSURE CO2; Value: 32.7; Range: 35.0-45.0; Abnormal: Below low normal; Units: mmHg; Status: F Test: ABG PARTIAL PRESSURE O2; Value: 55.9; Range: 75.0-100.0; Abnormal: Below low normal; Units: mmHg; Status: F Test: ABG TOTAL CO2; Value: 18.0; Range: 22.0-29.0; Abnormal: Below low normal; Units: MEQ/L; Status: F Test: ABG HCO3; Value: 17.0; Range: 22.0-26.0; Abnormal: Below low normal; Units: MEQ/L; Status: F Test: ABG BASE EXCESS; Value: -7.6; Range: -2.0-2.0; Abnormal: Below low normal; Status: F Test: ABG STANDARD HCO3; Value: 18.2; Range: 22.0-26.0; Abnormal: Below low normal; Units: MEQ/L; Status: F Test: ABG O2 SATURATION; Value: 88.1; Range: 95.0-99.0; Abnormal: Below low normal; Units: %; Status: F Test: ABG DEVICE; Value: NASAL AVI; Status: F Lab Order: Acetaminophen Level; SPEC'M 04/02/16 16:53 Test: ACETAMINOPHEN LEVEL; Value: < 2.0; Range: 10.0-30.0; Abnormal: Below low normal; Units: UG/ML; Status: F Lab Order: Basic Metabolic Profile; SPEC'M 04/02/16 16:53 Test: GLUCOSE, FASTING; Value: 119; Range: 70-105; Abnormal: Above high normal; Units: MG/DL; Status: F Test: BLOOD UREA NITROGEN; Value: 8; Range: 7-18; Units: MG/DL; Status: F Test: CREATININE FOR GFR; Value: 0.88; Range: 0.55-1.02; Units: MG/DL; Status: F Test: GLOMERULAR FILTRATION RATE; Value: > 60.0; Range: >58; Status: F Test: SODIUM LEVEL; Value: 141; Range: 136-145; Units: MEQ/L; Status: F Test: POTASSIUM SERUM; Value: 4.0; Range: 3.5-5.1; Units: MEQ/L; Status: F Test: CHLORIDE LEVEL; Value: 106; Range: 98-107; Units: MEQ/L; Status: F Test: CARBON DIOXIDE LEVEL; Value: 23; Range: 21-32; Units: MEQ/L; Status: F Test: ANION GAP; Value: 12; Range: 8-16; Units: MEQ/L; Status: F Test: CALCIUM LEVEL; Value: 8.5; Range: 8.5-10.1; Units: MG/DL; Status: F Test Note: ; Units are mL/min/1.73 m2 Chronic Kidney Disease Staging per NKF: Stage I & II GFR >=60 Normal to Mildly Decreased Stage III GFR 30-59 Moderately Decreased Stage IV GFR 15-29 Severely Decreased Stage V GFR <15 Very Little GFR Left ESRD GFR <15 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 Lab Order: Complete Blood Count; SPEC'M 04/02/16 16:53 Test: WHITE BLOOD COUNT; Value: 18.9; Range: 4.0-10.0; Abnormal: Above high normal; Units: K/mm3; Status: F Test: RED BLOOD COUNT; Value: 5.03; Range: 4.00-5.40; Units: M/mm3; Status: F Test: HEMOGLOBIN; Value: 15.3; Range: 12.0-16.0; Units: g/dl; Status: F Test: HEMATOCRIT; Value: 45.8; Range: 36.0-47.0; Units: %; Status: F Test: MEAN CORPUSCULAR VOLUME; Value: 91.0; Range: 80.0-96.0; Units: fl; Status: F Test: MEAN CORPUSCULAR HEMOGLOBIN; Value: 30.4; Range: 27.0-33.0; Units: pg; Status: F Test: MEAN CORPUSCULAR HGB CONC; Value: 33.4; Range: 32.0-36.5; Units: g/dl; Status: F Test: RED CELL DISTRIBUTION WIDTH; Value: 12.9; Range: 11.5-14.5; Units: %; Status: F Test: PLATELET COUNT, AUTOMATED; Value: 248; Range: 150-450; Units: k/mm3; Status: F Lab Order: Drug Eval Toxicology ED Only; SPEC'M 04/02/16 17:54 Test: AMPHETAMINES LEVEL URINE; Value: NEGATIVE; Range: NEGATIVE; Status: F Test: BARBITURATES URINE; Value: NEGATIVE; Range: NEGATIVE; Status: F Test: BENZODIAZEPINES URINE; Value: NEGATIVE; Range: NEGATIVE; Status: F Test: CANNABINOIDS URINE; Value: POSITIVE; Range: NEGATIVE; Abnormal: Above high normal; Status: F Test: COCAINE METABOLITE URINE; Value: NEGATIVE; Range: NEGATIVE; Status: F Test: METHADONE URINE; Value: NEGATIVE; Range: NEGATIVE; Status: F Test: OPIATES URINE; Value: POSITIVE; Range: NEGATIVE; Abnormal: Above high normal; Status: F Test: TRICYCLIC ANTIDEPRESS URINE; Value: NEGATIVE; Range: NEGATIVE; Status: F Test Note: ; FALSE POSITIVE RESULTS CAN BE CAUSED BY THE USE OF PANTOPRAZOLE (PROTONIX). Lab Order: Ethyl Alcohol (ethanol); SPEC'M 04/02/16 16:53 Test: ETHYL ALCOHOL (ETHANOL); Value: 0.101; Range: 0.000-0.010; Abnormal: Above high normal; Units: %; Status: F Lab Order: Liver Profile; SPEC'M 04/02/16 16:53 Test: AST/SGOT; Value: 34; Range: 15-37; Units: U/L; Status: F Test: ALT/SGPT; Value: 22; Range: 12-78; Units: U/L; Status: F Test: ALKALINE PHOSPHATASE; Value: 135; Range: 45-117; Abnormal: Above high normal; Units: U/L; Status: F Test: BILIRUBIN,TOTAL; Value: 0.2; Range: 0.2-1.0; Units: MG/DL; Status: F Test: BILIRUBIN,DIRECT; Value: 0.1; Range: 0.0-0.2; Units: MG/DL; Status: F Test: TOTAL PROTEIN; Value: 8.0; Range: 6.4-8.2; Units: GM/DL; Status: F Test: ALBUMIN; Value: 3.7; Range: 3.2-5.2; Units: GM/DL; Status: F Test: ALBUMIN/GLOBULIN RATIO; Value: 0.86; Range: 1.00-1.93; Abnormal: Below low normal; Status: F Lab Order: Salicylate Level; [facility] 04/02/16 16:53 Test: SALICYLATE LEVEL; Value: 3.5; Range: 5.0-30.0; Abnormal: Below low normal; Units: MG/DL; Status: F Lab Order: Thyroid Stimulating Hormone; [facility] 04/02/16 16:53 Test: THYROID STIMULATING HORMONE; Value: 0.634; Range: 0.358-3.740; Units: uIU/ML; Status: F Lab Order: BNP; [facility] 04/02/16 16:53 Test: BRAIN NATRIURETIC PEPTIDE; Value: 38.8; Range: <100; Units: PG/ML; Status: F Lab Order: Digoxin Level; [facility] 04/02/16 16:53 Test: DIGOXIN LEVEL; Value: 0.2; Range: 0.5-2.0; Abnormal: Below low normal; Units: NG/ML; Status: F Lab Order: -Arterial Blood Gas; [facility] 04/02/16 17:58 Test: ABG pH (ARTERIAL); Value: 7.300; Range: 7.350-7.450; Abnormal: Below low normal; Units: UNITS; Status: F Test: ABG PARTIAL PRESSURE CO2; Value: 36.1; Range: 35.0-45.0; Units: mmHg; Status: F Test: ABG PARTIAL PRESSURE O2; Value: 41.6; Range: 75.0-100.0; Abnormal: Critical Low; Units: mmHg; Status: F Test: ABG TOTAL CO2; Value: 18.5; Range: 22.0-29.0; Abnormal: Below low normal; Units: MEQ/L; Status: F Test: ABG HCO3; Value: 17.4; Range: 22.0-26.0; Abnormal: Below low normal; Units: MEQ/L; Status: F Test: ABG BASE EXCESS; Value: -8.2; Range: -2.0-2.0; Abnormal: Below low normal; Status: F Test: ABG STANDARD HCO3; Value: 17.5; Range: 22.0-26.0; Abnormal: Below low normal; Units: MEQ/L; Status: F Test: ABG O2 SATURATION; Value: 73.1; Range: 95.0-99.0; Abnormal: Below low normal; Units: %; Status: F Test: ABG DEVICE; Value: NASAL AVI; Status: F Lab Order: COMPLETE BLOOD COUNT; [facility]' 04/03/16 08:21 Test: WHITE BLOOD COUNT; Value: 19.3; Range: 4.0-10.0; Abnormal: Above high normal; Units: K/mm3; Status: F Test: RED BLOOD COUNT; Value: 4.30; Range: 4.00-5.40; Units: M/mm3; Status: F Test: HEMOGLOBIN; Value: 13.3; Range: 12.0-16.0; Abnormal: Delta; Units: g/dl; Status: F Test: HEMATOCRIT; Value: 39.5; Range: 36.0-47.0; Units: %; Status: F Test: MEAN CORPUSCULAR VOLUME; Value: 91.8; Range: 80.0-96.0; Units: fl; Status: F Test: MEAN CORPUSCULAR HEMOGLOBIN; Value: 31.0; Range: 27.0-33.0; Units: pg; Status: F Test: MEAN CORPUSCULAR HGB CONC; Value: 33.8; Range: 32.0-36.5; Units: g/dl; Status: F Test: RED CELL DISTRIBUTION WIDTH; Value: 13.0; Range: 11.5-14.5; Units: %; Status: F Test: PLATELET COUNT, AUTOMATED; Value: 201; Range: 150-450; Units: k/mm3; Status: F Lab Order: BASIC METABOLIC PROFILE; [facility] 04/03/16 08:21 Test: GLUCOSE, FASTING; Value: 170; Range: 70-105; Abnormal: Above high normal; Units: MG/DL; Status: F Test: BLOOD UREA NITROGEN; Value: 15; Range: 7-18; Abnormal: Delta; Units: MG/DL; Status: F Test: CREATININE FOR GFR; Value: 1.10; Range: 0.55-1.02; Abnormal: Above high normal; Units: MG/DL; Status: F Test: GLOMERULAR FILTRATION RATE; Value: 56.2; Range: >58; Abnormal: Below low normal; Status: F Test: SODIUM LEVEL; Value: 142; Range: 136-145; Units: MEQ/L; Status: F Test: POTASSIUM SERUM; Value: 4.1; Range: 3.5-5.1; Units: MEQ/L; Status: F Test: CHLORIDE LEVEL; Value: 110; Range: 98-107; Abnormal: Above high normal; Units: MEQ/L; Status: F Test: CARBON DIOXIDE LEVEL; Value: 21; Range: 21-32; Units: MEQ/L; Status: F Test: ANION GAP; Value: 11; Range: 8-16; Units: MEQ/L; Status: F Test: CALCIUM LEVEL; Value: 8.9; Range: 8.5-10.1; Units: MG/DL; Status: F Test Note: ; Units are mL/min/1.73 m2 Chronic Kidney Disease Staging per NKF: Stage I & II GFR >=60 Normal to Mildly Decreased Stage III GFR 30-59 Moderately Decreased Stage IV GFR 15-29 Severely Decreased Stage V GFR <15 Very Little GFR Left ESRD GFR <15 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 Lab Order: LACTIC ACID LEVEL, LACTATE; SPEC'M 04/02/16 21:57 Test: LACTIC ACID SEPSIS PROTOCOL; Value: 2.8; Range: 0.4-2.0; Abnormal: Above upper panic limits; Units: MMOL/L; Status: F Lab Order: RESPIRATORY PANEL; SPEC'M 04/02/16 22:10 Test: RESPIRATORY PANEL; Value: RP PANEL RESULT NEGATIVE by PCR; Status: F Test: RESPIRATORY PANEL; Value: Comments:; Status: F Test Note: ; This respiratory PCR panel detects Influenza A H1, H3 and 2009 H1 viruses, Influenza B virus, Respiratory syncytial virus, Human metapneumovirus, Parainfluenza virus 1, 2, 3 and 4, Adenovirus, Rhinovirus/Enterovirus, Coronavirus HKU1, NL63, OC43 and 229E, Bordetella pertussis, Mycoplasma pneumoniae and Chlamydia pneumoniae. Lab Order: C REACTIVE PROTEIN QUANTITATIV; [facility] 04/02/16 16:53 Test: C REACTIVE PROTEIN QUANTITATIV; Value: 2.44; Range: 0.00-0.30; Abnormal: Above high normal; Units: MG/DL; Status: F Lab Order: Fingerstick Blood Sugar; [facility] 04/02/16 22:45 Test: BEDSIDE GLUCOSE; Value: 289; Range: 70-105; Abnormal: Above high normal; Units: MG/DL; Status: F Lab Order: LACTIC ACID LEVEL, LACTATE; [facility] 04/03/16 08:21 Test: LACTIC ACID SEPSIS PROTOCOL; Value: 3.4; Range: 0.4-2.0; Abnormal: Above upper panic limits; Units: MMOL/L; Status: F Lab Order: C REACTIVE PROTEIN QUANTITATIV; [facility] 04/03/16 08:21 Test: C REACTIVE PROTEIN QUANTITATIV; Value: 8.49; Range: 0.00-0.30; Abnormal: Above high normal; Units: MG/DL; Status: F Lab Order: Fingerstick Blood Sugar; [facility] 04/03/16 07:44 Test: BEDSIDE GLUCOSE; Value: 208; Range: 70-105; Abnormal: Above high normal; Units: MG/DL; Status: F Lab Order: Fingerstick Blood Sugar; [facility] 04/03/16 11:46 Test: BEDSIDE GLUCOSE; Value: 120; Range: 70-105; Abnormal: Above high normal; Units: MG/DL; Status: F Radiology Order: EKG-ADULT Test: EKG-ADULT REASON FOR EXAMINATION: Chest Pain; Stationary ECG Study; [facility] - ED; ; Test Date: 2016-04-02; Pat Name: CYNTHIA HENNESSY Department:; Room: -; Gender: F [employer] Consultant: ivy; : 1965 Requested By: JOSLYN Marks; Order Number: [id number] Reading MD: Solomon Mantilla; Measurements; Intervals [place]; Rate: 132 P: 63; HI: 143 QRS: -43; QRSD: 94 T: 79; QT: 322; QTc: 477; Interpretive Statements; ELECTRONIC VENTRICULAR PACEMAKER; ABNORMAL RHYTHM ECG; ; Electronically Signed On 04-02-2016 18:22:28 EST by Solomon Mantilla; Radiology Order: Chest, 1 View Test: Chest, 1 View REASON FOR EXAMINATION: Chest Pain; Clinical: Chest pain .; ; Comparison: 08/30/2015 .; ; Findings:; The mediastinum and cardiac silhouette are stable and within normal limits for; portable technique. Pacemaker again identified. The lung hinojosa demonstrate; chronic changes without acute consolidation, effusion, or pneumothorax. Skeletal; structures are intact.; ; Impression:; No acute cardiopulmonary process.; ; ; Signed by; Saurav Villalpando MD 04/02/2016 04:51 P; Radiology Order: CT Head Without Contrast Test: CT Head Without Contrast REASON FOR EXAMINATION: AMS; Clinical: Altered mental status .; ; Comparison: 04/22/2012 .; ; Findings:; The ventricles, sulci, and cisterns are normal in position and appearance.; Ballesteros-white differentiation is maintained. No acute intracranial hemorrhage,; mass/mass effect, pathology or trauma/injury. No evidence for acute infarction.; No extra-axial fluid collection. Calvarium is intact. Paranasal sinuses and; mastoid air cells are clear.; ; Impression:; Normal noncontrast head CT.; No evidence for acute intracranial pathology or trauma/injury.; ; ; Signed by; Saurav Villalpando MD 04/03/2016 08:01 A; Radiology Order: CT Chest Without Contrast Test: CT Chest Without Contrast REASON FOR EXAMINATION: Shortness of Breath; Clinical: Shortness of breath.; ; Comparison: 10/14/2010.; ; Findings:; Mild chronic emphysematous changes are appreciated with primarily by apical; subpleural bullae and minimal bronchiectasis. Subtle superimposed acute alveolar; infiltrates involve primarily the right upper lobe, right lower lobe and right; middle lobe and to a lesser extent the perihilar left lung. No focal nodule or; mass lesion. Mild reactive adenopathy in the mediastinum and high right hilum; suggested. No pleural effusion/reaction or pneumothorax. Heart and pericardium; are stable.; ; Impression:; Evidence to suggest bronchitis with early multifocal pneumonia. Correlation is; recommended. Mild underlying emphysematous changes.; ; ; Signed by; Saurav Villalpando MD 04/03/2016 08:03 A; Outcome: 20:18 Decision to Hospitalize by Provider. mm11 04/03 15:14 Discharge Assessment: patient administered narcotics - yes. Patient was admitted to the [facility] or transferred to another facility. The following High Risk Discharge criteria are identified: None. Admitted PACU holding, accompanied by nurse, accompanied by tech, with oxygen, on monitor, with chart. Condition: stable. No special radiology studies were completed. Property :Personal belongings accompany Pt. 15:28 Patient left the ED. [facility] Signatures: Dispatcher [employer] EDMS Kerry Greenwood, Reg Reg gb Clyde,Sarahy Elliott kt1 Denise Agosto, Carry Out Clerk Unit ml3 Jen Troy LPN SLAB OFF MILL TENDER al3 Gray Torres, DO DO mm11 Ann Rivera mt4 Gray Carrington, RN RN ml6 Courtney Bhatt, IT SUPPORT MANAGER IT SUPPORT MANAGER ar3 Valentina Tinsley,RN RN js13 Catina Calderon, IT SUPPORT MANAGER IT SUPPORT MANAGER amyf Teresa Perry,RN RN [email or web address] Lucretia Velazquez Michael,RN RN mb9 Joslyn Huddleston MD MD fg Nichols, Crystal, IT SUPPORT MANAGER IT SUPPORT MANAGER cln Chart Complete MTDD
--- NOTE | 2016-04-05 16:28 | EDDOCDS ---
Physician Documentation [facility] Name: Cynthia Hennessy Age: 50 yrs Sex: Female : 1965 Arrival Date: 04/02/2016 Time: 15:39 Bed Admit Hold Private MD: Alla Fernandes C Disposition: 04/02/16 20:18 Hospitalization ordered by Leonidas Tomlinson for Inpatient Admission. Preliminary diagnosis are Lobar pneumonia, unspecified organism - RUL, RML, RLL - aspiration, Altered mental status, unspecified, Acute and chronic respiratory failure with hypoxia, Alcohol use, unspecified with intoxication. - Bed requested for Admit. - Status is Inpatient Admission. me3 - Condition is Stable. - Problem is an acute exacerbation. - Symptoms have improved. Historical: - Allergies: IV Dye; SULFA (SULFONAMIDES); - Home Meds: 1. Advair Diskus inhalation Inhl 2 times per day 2. Albuterol Inhl as needed 3. Baclofen Oral Unknown as needed 4. Digoxin Oral once daily 5. Eliquis oral Unknown 2 times per day 6. Gabapentin Oral 3 times per day 7. losartan oral Unknown 2 times per day 8. metformin 1,000 mg Oral tab 1 tab 2 times per day 9. Naprosyn Oral as needed 10. Spiriva with HandiHaler 18 mcg Inhl CpDv 1 cap once daily - PMHx: Atrial Fib; COPD; Diabetes - NIDDM: controlled; Hypertension; LBBB; - PSHx: kidney surgery; Chest Tube- Right; defibbrilator placement; Pacemaker Insertion; heart cath; ; - Social history: Smoking status: Patient uses tobacco products, current every day smoker. No barriers to communication noted, The patient speaks fluent Polish. - Family history: Not pertinent. - : The pt / caregiver states he / she is on anticoagulants: Eliquis Home medication list is obtained from the patient, Meta import data. - Exposure Risk Screening:: None identified. 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 1 in. (154.94 cm) (R); Pain 0/10; 15:47 BP 140 / 76 (auto/); js13 16:00 BP 123 / 64 (auto/); mb9 16:00 Pulse 118 MON; Pulse Ox 84% on 3 lpm NC; mb9 16:14 Pulse 115 MON; Pulse Ox 82% on 3 lpm NC; mb9 16:15 BP 135 / 83 (auto/); mb9 16:30 BP 126 / 66 (auto/); mb9 16:33 Pulse 118 MON; Pulse Ox 80% on 3 lpm NC; mb9 17:00 BP 124 / 65 (auto/); mb9 17:01 Pulse 117 MON; Pulse Ox 90% on Venturi mask; mb9 17:15 BP 142 / 77 (auto/); mb9 17:15 Pulse 118 MON; Pulse Ox 97% on Venturi mask; mb9 17:30 BP 123 / 65 (auto/); mb9 17:31 Pulse 134 MON; Pulse Ox 99% on Venturi mask; mb9 17:45 BP 123 / 58 (auto/); mb9 17:46 Pulse 130 MON; Pulse Ox 98% on Venturi mask; mb9 18:00 BP 128 / 62 (auto/); mb9 18:01 Pulse 126 MON; Pulse Ox 98% on Venturi mask; mb9 18:15 BP 117 / 57 (auto/); mb9 18:16 Pulse 122 MON; Pulse Ox 96% on Venturi mask; mb9 18:30 BP 123 / 58 (auto/); mb9 18:31 Pulse 120 MON; Pulse Ox 98% on Venturi mask; mb9 18:45 BP 120 / 56 (auto/); mb9 18:46 Pulse 119 MON; Pulse Ox 96% on Venturi mask; mb9 19:00 BP 106 / 68 (auto/); mb9 19:01 Pulse 109 MON; Pulse Ox 96% on Venturi mask; mb9 19:14 Pulse 109 MON; Pulse Ox 96% on Venturi mask; mb9 19:15 BP 121 / 59 (auto/); mb9 19:30 BP 116 / 59 (auto/); mb9 19:31 Pulse 107 MON; Pulse Ox 100% on Venturi mask; mb9 19:45 BP 121 / 59 (auto/); mb9 19:46 Pulse 106 MON; Pulse Ox 96% on Venturi mask; mb9 20:08 Pulse Ox 93% on R/A; mb9 20:16 BP 127 / 74 (auto/); mb9 20:17 Pulse 108 MON; Pulse Ox 95% ; mb9 21:16 BP 118 / 64 (auto/); mb9 21:17 Pulse 92 MON; Pulse Ox 96% ; mb9 15:42 Body Mass Index 22.67 (54.43 kg, 154.94 cm) ml6 16:00 pt continues to remove nasal cannula. pt advised to leave nasal cannula in place. mb9 16:14 pt continues to remove nasal cannula. pt advised to leave nasal cannula in place. mb9 16:33 pt continues to remove nasal cannula. pt advised to leave nasal cannula in place. mb9 MDM: 15:49 Consult PFS/PSA/Automotive Parts Coordinator ordered. fg 15:49 Consult PFS/PSA/Automotive Parts Coordinator: Patient's case requires discussion with on-call fg Psychiatrist ordered. 15:49 PSA/PFS to call Nursing Corrugated Box Machine Operator, to enter patient data on [place] Safe [place] if patient fg involuntarily admitted or transferred for SI or HI ordered. 15:49 Confirm accurate psychiatric medication list and times of last dosage ordered. fg 15:49 Detain Pt Until Medically/PFS Cleared ordered. fg 15:49 IV Saline Lock ordered. fg 15:49 Solu-MEDROL 125 mg IVP once ordered. fg 15:49 Albuterol-Ipratropium 3 ml Inhalation once ordered. fg 15:49 Call Respiratory ordered. fg 15:50 -Arterial Blood Gas Ordered. EDMS 15:50 Acetaminophen Level Ordered. EDMS 15:50 Basic Metabolic Profile Ordered. EDMS 15:50 Complete Blood Count Ordered. EDMS 15:50 Drug Eval Toxicology ED Only Ordered. EDMS 15:50 Ethyl Alcohol (ethanol) Ordered. EDMS 15:50 Liver Profile Ordered. EDMS 15:50 Salicylate Level Ordered. EDMS 15:50 Thyroid Stimulating Hormone Ordered. EDMS 15:50 Call Respiratory complete. jlf 15:50 BNP Ordered. EDMS 15:50 Digoxin Level Ordered. EDMS 15:50 ECG WITH READING ER PHYS+CARDIAG ordered. EDMS 15:51 Chest, 1 View Ordered. EDMS 15:51 CT Head Without Contrast Ordered. EDMS 15:55 CT Chest Without Contrast Ordered. EDMS 16:57 Financial registration complete. [facility] 16:59 [facility] Payment Agreement was scanned into [employer] and attached to record. [facility] 17:05 Ondansetron 4 mg IVP once ordered. fg 17:19 Albuterol 5 mg Nebulizer once ordered. fg 17:20 ketorolac 30 mg IVP once ordered. fg 17:51 Call Respiratory ordered. fg 17:51 -Arterial Blood Gas Ordered. EDMS 17:57 Call Respiratory complete. ar3 18:26 Piperacillin-Tazobactam 3.375 grams IVPB once over 30 mins; dilute in 50mL of NS or D5W fg ordered. 19:01 BED REQUEST+ADM ordered. EDMS 20:12 Oxazepam 30 mg PO once ordered. mm11 20:13 vancomycin (loading dose for pt. wt. 50-59kg) 1250 mg IVPB once ordered. mm11 20:33 COMPLETE BLOOD COUNT Ordered. EDMS 20:34 BASIC METABOLIC PROFILE Ordered. EDMS 20:36 Admission / Observation Status ordered. EDMS 21:15 ELECTROCARDIOGRAM ADULT ordered. EDMS 21:16 URINALYSIS Ordered. EDMS 21:35 LACTIC ACID LEVEL, LACTATE Ordered. EDMS 21:40 RESPIRATORY PANEL Ordered. EDMS 21:42 SPUTUM CULTURE AND GRAM STAIN Ordered. EDMS 21:58 BLOOD CULTURES Ordered. EDMS 21:58 BLOOD CULTURES Ordered. EDMS 22:05 CONSISTENT CARBOHYDRATES ordered. EDMS 22:52 Fingerstick Blood Sugar Ordered. EDMS 02 03:10 LACTIC ACID LEVEL, LACTATE Ordered. EDMS 07:08 Attending Doctor Change: ordered. EDMS 07:09 MRSA SCREEN Ordered. EDMS 07:19 C REACTIVE PROTEIN QUANTITATIV Ordered. EDMS 07:54 PCR was scanned into [employer] and attached to record. mt4 07:56 Fingerstick Blood Sugar Ordered. EDMS 12:53 LACTIC ACID LEVEL, LACTATE Ordered. EDMS 15:54 T-Sheet-- Draft Copy was scanned into [employer] and attached to record. 04/04 09:18 ECG/EKG was scanned into [employer] and attached to record. gb Point of Care Testing: Blood Glucose: 04/02 22:46 Blood Glucose: 289 mg/dL; mb9 Ranges: Administered Medications: 16:16 Drug: Solu-MEDROL 125 mg [Solu-Medrol 500 mg intravenous solution (125 mg)] Route: IVP; js13 Site: right antecubital; 16:39 Drug: Albuterol-Ipratropium 3 ml [ipratropium-albuterol 0.5 mg-3 mg(2.5 mg base)/3 mL lb nebulization soln (3 mL)] Route: Inhalation; 17:16 Drug: Ondansetron 4 mg [ondansetron HCl 2 mg/mL intravenous solution (2 mL)] Route: mb9 IVP; Site: right antecubital; 17:25 Drug: ketorolac 30 mg [ketorolac 30 mg/mL (1 mL) injection solution (1 mL)] Route: IVP; mb9 Site: right antecubital; 18:00 Drug: Albuterol 5 mg [albuterol sulfate 2.5 mg/0.5 mL solution for nebulization (1 mL)] kt1 Route: Nebulizer; 18:40 Drug: Piperacillin-Tazobactam 3.375 grams [piperacillin-tazobactam 3.375 gram mb9 intravenous solution] Route: IVPB; Infused Over: 30 mins; Site: right antecubital; 23:50 Follow up: IV Intake: 50ml mb9 20:47 Drug: Oxazepam 30 mg [oxazepam 15 mg capsule (2 caps)] Route: PO; mb9 20:47 Drug: vancomycin (loading dose for pt. wt. 50-59kg) 1250 mg [vancomycin 500 mg mb9 intravenous solution] Route: IVPB; Site: right antecubital; 23:51 Follow up: IV Intake: 500ml mb9 Signatures: Dispatcher [employer] EDMS Kerry Greenwood, Reg Reg gb Woodrow,Jen,PROGRAM DIRECTOR/MUSIC DIRECTOR PROGRAM DIRECTOR/MUSIC DIRECTOR me3 Gray Carrion, DO DO mm11 Miguel, Ann mt4 Courtney Bhatt, PLANE TABLEMAN PLANE TABLEMAN ar3 Valentina TinsleyRN RN js13 Catina Calderon, PLANE TABLEMAN PLANE TABLEMAN Lucretia Dickens Frances, MD MD fg Bickel, Lindsay lb Chatter[place], Kristin kt1 Zac Correa RN mb9 The chart was reviewed and I authenticate all verbal orders and agree with the evaluation and treatment provided.Corrections: (The following items were deleted from the chart) 15:58 15:51 CT ANGIO CHEST+CT ordered. EDMS EDMS : 20:36 REGULAR DIET ordered. EDMS EDMS 22:05 C REACTIVE PROTEIN QUANTITATIV ordered. EDMS EDMS 04/03 07:19 07:11 C REACTIVE PROTEIN QUANTITATIV ordered. EDMS EDMS : 04/02 16:59 [place] Payment Agreement [facility] 15:54 T-Sheet-- Draft Copy 04/04 09:18 ECG/EKG Chart Complete MTDD
--- NOTE | 2016-04-05 16:28 | EDDOCDS ---
Physician Documentation [facility] Name: Cynthia Hennessy Age: 50 yrs Sex: Female : 1965 Arrival Date: 04/02/2016 Time: 15:39 Bed Admit Hold Private MD: Alla Fernandes C Disposition: 04/02/16 20:18 Hospitalization ordered by Leonidas Tomlinson for Inpatient Admission. Preliminary diagnosis are Lobar pneumonia, unspecified organism - RUL, RML, RLL - aspiration, Altered mental status, unspecified, Acute and chronic respiratory failure with hypoxia, Alcohol use, unspecified with intoxication. - Bed requested for Admit. - Status is Inpatient Admission. me3 - Condition is Stable. - Problem is an acute exacerbation. - Symptoms have improved. Historical: - Allergies: IV Dye; SULFA (SULFONAMIDES); - Home Meds: 1. Advair Diskus inhalation Inhl 2 times per day 2. Albuterol Inhl as needed 3. Baclofen Oral Unknown as needed 4. Digoxin Oral once daily 5. Eliquis oral Unknown 2 times per day 6. Gabapentin Oral 3 times per day 7. losartan oral Unknown 2 times per day 8. metformin 1,000 mg Oral tab 1 tab 2 times per day 9. Naprosyn Oral as needed 10. Spiriva with HandiHaler 18 mcg Inhl CpDv 1 cap once daily - PMHx: Atrial Fib; COPD; Diabetes - NIDDM: controlled; Hypertension; LBBB; - PSHx: kidney surgery; Chest Tube- Right; defibbrilator placement; Pacemaker Insertion; heart cath; ; - Social history: Smoking status: Patient uses tobacco products, current every day smoker. No barriers to communication noted, The patient speaks fluent Welsh. - Family history: Not pertinent. - : The pt / caregiver states he / she is on anticoagulants: Eliquis Home medication list is obtained from the patient, [employer] import data. - Exposure Risk Screening:: None identified. PLAN REP: 04/02 15:42 LMP N/A - Post-menopause ml6 15:51 LMP N/A - Hysterectomy js13 Vital Signs: 15:42 BP 140 / 76; Pulse 120; Resp 18; Temp 96.8(TE); Pulse Ox 94% on R/A; Weight 54.43 kg / ml6 120 lbs (R); Height 5 ft. 1 in. (154.94 cm) (R); Pain 0/10; 15:47 BP 140 / 76 (auto/); js13 16:00 BP 123 / 64 (auto/); mb9 16:00 Pulse 118 MON; Pulse Ox 84% on 3 lpm NC; mb9 16:14 Pulse 115 MON; Pulse Ox 82% on 3 lpm NC; mb9 16:15 BP 135 / 83 (auto/); mb9 16:30 BP 126 / 66 (auto/); mb9 16:33 Pulse 118 MON; Pulse Ox 80% on 3 lpm NC; mb9 17:00 BP 124 / 65 (auto/); mb9 17:01 Pulse 117 MON; Pulse Ox 90% on Venturi mask; mb9 17:15 BP 142 / 77 (auto/); mb9 17:15 Pulse 118 MON; Pulse Ox 97% on Venturi mask; mb9 17:30 BP 123 / 65 (auto/); mb9 17:31 Pulse 134 MON; Pulse Ox 99% on Venturi mask; mb9 17:45 BP 123 / 58 (auto/); mb9 17:46 Pulse 130 MON; Pulse Ox 98% on Venturi mask; mb9 18:00 BP 128 / 62 (auto/); mb9 18:01 Pulse 126 MON; Pulse Ox 98% on Venturi mask; mb9 18:15 BP 117 / 57 (auto/); mb9 18:16 Pulse 122 MON; Pulse Ox 96% on Venturi mask; mb9 18:30 BP 123 / 58 (auto/); mb9 18:31 Pulse 120 MON; Pulse Ox 98% on Venturi mask; mb9 18:45 BP 120 / 56 (auto/); mb9 18:46 Pulse 119 MON; Pulse Ox 96% on Venturi mask; mb9 19:00 BP 106 / 68 (auto/); mb9 19:01 Pulse 109 MON; Pulse Ox 96% on Venturi mask; mb9 19:14 Pulse 109 MON; Pulse Ox 96% on Venturi mask; mb9 19:15 BP 121 / 59 (auto/); mb9 19:30 BP 116 / 59 (auto/); mb9 19:31 Pulse 107 MON; Pulse Ox 100% on Venturi mask; mb9 19:45 BP 121 / 59 (auto/); mb9 19:46 Pulse 106 MON; Pulse Ox 96% on Venturi mask; mb9 20:08 Pulse Ox 93% on R/A; mb9 20:16 BP 127 / 74 (auto/); mb9 20:17 Pulse 108 MON; Pulse Ox 95% ; mb9 21:16 BP 118 / 64 (auto/); mb9 21:17 Pulse 92 MON; Pulse Ox 96% ; mb9 15:42 Body Mass Index 22.67 (54.43 kg, 154.94 cm) ml6 16:00 pt continues to remove nasal cannula. pt advised to leave nasal cannula in place. mb9 16:14 pt continues to remove nasal cannula. pt advised to leave nasal cannula in place. mb9 16:33 pt continues to remove nasal cannula. pt advised to leave nasal cannula in place. mb9 MDM: 15:49 Consult PFS/PSA/Nurses' Aide ordered. fg 15:49 Consult PFS/PSA/Nurses' Aide: Patient's case requires discussion with on-call fg Psychiatrist ordered. 15:49 PSA/PFS to call Nursing Production Assembly Supervisor, to enter patient data on [place] if patient fg involuntarily admitted or transferred for SI or HI ordered. 15:49 Confirm accurate psychiatric medication list and times of last dosage ordered. fg 15:49 Detain Pt Until Medically/PFS Cleared ordered. fg 15:49 IV Saline Lock ordered. fg 15:49 Solu-MEDROL 125 mg IVP once ordered. fg 15:49 Albuterol-Ipratropium 3 ml Inhalation once ordered. fg 15:49 Call Respiratory ordered. fg 15:50 -Arterial Blood Gas Ordered. EDMS 15:50 Acetaminophen Level Ordered. EDMS 15:50 Basic Metabolic Profile Ordered. EDMS 15:50 Complete Blood Count Ordered. EDMS 15:50 Drug Eval Toxicology ED Only Ordered. EDMS 15:50 Ethyl Alcohol (ethanol) Ordered. EDMS 15:50 Liver Profile Ordered. EDMS 15:50 Salicylate Level Ordered. EDMS 15:50 Thyroid Stimulating Hormone Ordered. EDMS 15:50 Call Respiratory complete. jlf 15:50 BNP Ordered. EDMS 15:50 Digoxin Level Ordered. EDMS 15:50 ECG WITH READING ER PHYS+CARDIAG ordered. EDMS 15:51 Chest, 1 View Ordered. EDMS 15:51 CT Head Without Contrast Ordered. EDMS 15:55 CT Chest Without Contrast Ordered. EDMS 16:57 Financial registration complete. [facility] 16:59 PENDING SALE TO [facility] Payment Agreement was scanned into [employer] and attached to record. [facility] 17:05 Ondansetron 4 mg IVP once ordered. fg 17:19 Albuterol 5 mg Nebulizer once ordered. fg 17:20 ketorolac 30 mg IVP once ordered. fg 17:51 Call Respiratory ordered. fg 17:51 -Arterial Blood Gas Ordered. EDMS 17:57 Call Respiratory complete. ar3 18:26 Piperacillin-Tazobactam 3.375 grams IVPB once over 30 mins; dilute in 50mL of NS or D5W fg ordered. 19:01 BED REQUEST+ADM ordered. EDMS 20:12 Oxazepam 30 mg PO once ordered. mm11 20:13 vancomycin (loading dose for pt. wt. 50-59kg) 1250 mg IVPB once ordered. mm11 20:33 COMPLETE BLOOD COUNT Ordered. EDMS 20:34 BASIC METABOLIC PROFILE Ordered. EDMS 20:36 Admission / Observation Status ordered. EDMS 21:15 ELECTROCARDIOGRAM ADULT ordered. EDMS 21:16 URINALYSIS Ordered. EDMS 21:35 LACTIC ACID LEVEL, LACTATE Ordered. EDMS 21:40 RESPIRATORY PANEL Ordered. EDMS 21:42 SPUTUM CULTURE AND GRAM STAIN Ordered. EDMS 21:58 BLOOD CULTURES Ordered. EDMS 21:58 BLOOD CULTURES Ordered. EDMS 22:05 CONSISTENT CARBOHYDRATES ordered. EDMS 22:52 Fingerstick Blood Sugar Ordered. EDMS 02 03:10 LACTIC ACID LEVEL, LACTATE Ordered. EDMS 07:08 Attending Doctor Change: ordered. EDMS 07:09 MRSA SCREEN Ordered. EDMS 07:19 C REACTIVE PROTEIN QUANTITATIV Ordered. EDMS 07:54 PCR was scanned into [employer] and attached to record. mt4 07:56 Fingerstick Blood Sugar Ordered. EDMS 12:53 LACTIC ACID LEVEL, LACTATE Ordered. EDMS 15:54 T-Sheet-- Draft Copy was scanned into [employer] and attached to record. 04/04 09:18 ECG/EKG was scanned into [employer] and attached to record. gb Point of Care Testing: Blood Glucose: 04/02 22:46 Blood Glucose: 289 mg/dL; mb9 Ranges: Administered Medications: 16:16 Drug: Solu-MEDROL 125 mg [Solu-Medrol 500 mg intravenous solution (125 mg)] Route: IVP; js13 Site: right antecubital; 16:39 Drug: Albuterol-Ipratropium 3 ml [ipratropium-albuterol 0.5 mg-3 mg(2.5 mg base)/3 mL lb nebulization soln (3 mL)] Route: Inhalation; 17:16 Drug: Ondansetron 4 mg [ondansetron HCl 2 mg/mL intravenous solution (2 mL)] Route: mb9 IVP; Site: right antecubital; 17:25 Drug: ketorolac 30 mg [ketorolac 30 mg/mL (1 mL) injection solution (1 mL)] Route: IVP; mb9 Site: right antecubital; 18:00 Drug: Albuterol 5 mg [albuterol sulfate 2.5 mg/0.5 mL solution for nebulization (1 mL)] kt1 Route: Nebulizer; 18:40 Drug: Piperacillin-Tazobactam 3.375 grams [piperacillin-tazobactam 3.375 gram mb9 intravenous solution] Route: IVPB; Infused Over: 30 mins; Site: right antecubital; 23:50 Follow up: IV Intake: 50ml mb9 20:47 Drug: Oxazepam 30 mg [oxazepam 15 mg capsule (2 caps)] Route: PO; mb9 20:47 Drug: vancomycin (loading dose for pt. wt. 50-59kg) 1250 mg [vancomycin 500 mg mb9 intravenous solution] Route: IVPB; Site: right antecubital; 23:51 Follow up: IV Intake: 500ml mb9 Signatures: Dispatcher [employer] EDMS Kerry Greenwood, Reg Reg gb Woodrow,Jen,FASHION PATTERNMAKER FASHION PATTERNMAKER me3 Gray Carrion, DO DO mm11 Miguel, Ann mt4 Courtney Bhatt, DISTANCE EDUCATION TEACHER DISTANCE EDUCATION TEACHER ar3 Valentina TinsleyRN RN js13 Catina Calderon, DISTANCE EDUCATION TEACHER DISTANCE EDUCATION TEACHER Lucretia Dickens Frances, MD MD fg Bickel, Lindsay lb [place]ter[place], Kristin kt1 Zac Correa RN mb9 The chart was reviewed and I authenticate all verbal orders and agree with the evaluation and treatment provided.Corrections: (The following items were deleted from the chart) 15:58 15:51 CT ANGIO CHEST+CT ordered. EDMS EDMS : 20:36 REGULAR DIET ordered. EDMS EDMS 22:05 C REACTIVE PROTEIN QUANTITATIV ordered. EDMS EDMS 04/03 07:19 07:11 C REACTIVE PROTEIN QUANTITATIV ordered. EDMS EDMS : 04/02 16:59 [place] Payment Agreement [facility] 15:54 T-Sheet-- Draft Copy 04/04 09:18 ECG/EKG Chart Complete MTDD
--- NOTE | 2016-04-05 18:32 | DSES ---
DATE OF ADMISSION: 04/04/2016 DATE OF DISCHARGE: 04/05/2016 DISCHARGE DIAGNOSIS: Community-acquired pneumonia. SECONDARY DIAGNOSES: 1. Narcotic abuse, likely heroin. 2. Chronic obstructive pulmonary disease (COPD). 3. Metabolic encephalopathy. 4. Alcohol abuse. 5. Tobacco abuse. 6. Hepatitis C. 7. Atrial fibrillation. 8. Type 2 diabetes. 9. Hypertension. HOSPITAL COURSE: The patient is a 50-year-old female who presented with metabolic encephalopathy and community-acquired pneumonia, possibly aspiration pneumonia believed to be secondary to narcotic abuse. The patient has a history of substance abuse with heroin. She was positive for THC and opiates at the time of her admission. She did respond to Narcan. The patient's respiratory was slow to improve, likely related to pneumonia. She was on levofloxacin. She was treated for decompensated COPD with steroids, nebulizer treatments. However, we felt this was much less likely. At this time, the patient is at her functional baseline. She is up and ambulating without any oxygen requirement. Her medications are all by mouth. She would like to go home and has no complaints at this time. OBJECTIVE: VITAL SIGNS: Temperature 97, pulse 52, respiratory rate 16, blood pressure 178/65 prior to medication administration. Oxygen saturation 97% on room air. GENERAL: She is a disheveled middle-aged female lying in bed. She is in no distress. HEENT: Cranial nerves II through XII are grossly intact. She has moist mucous membranes. No elevation of central venous pressure (CVP). CARDIOVASCULAR: S1, S2, regular. RESPIRATORY: Actually quite clear. She has good air movement. ABDOMEN: Benign. EXTREMITIES: No clubbing, cyanosis or edema. LABORATORY DATA: WBC 11.9, hemoglobin 12.2, hematocrit 36.2, platelet count 237. Chemistry panel: Sodium 146, potassium 3.7, chloride 114, bicarbonate 23, BUN 14, creatinine 0.9. CRP is 1.29 down from 3.99 yesterday. As mentioned above, her toxicology was positive for alcohol, cannabis, and opiates at the time of admission. MICROBIOLOGY: Viral PCR panel was negative. Blood culture panel was negative. She had yeastlike organisms in one out of two bottles, likely contaminant. IMAGING: She had a CT scan of her chest that revealed evidence of bronchitis with early multifocal pneumonia. ASSESSMENT AND PLAN: This is a 50-year-old female with metabolic encephalopathy secondary to narcotic abuse, as well as community-acquired versus aspiration pneumonia. 1. Community-acquired versus aspiration pneumonia. The patient presented with a cough and low-grade temperatures. She was initially on Zosyn. At this time, her cultures have been essentially negative. We have narrowed the spectrum to levofloxacin by mouth which we will continue to complete a course of oral antibiotics. Her symptoms have essentially almost completely resolved. She is at her functional baseline. 2. Narcotic abuse, likely heroin. The patient has a history of this in the past. She presented encephalopathic. She did respond to Narcan. This may have been instigating incident which provoked aspiration pneumonia. Substance abuse counseling provided. Cessation advice provided. 3. Chronic obstructive pulmonary disease (COPD). The patient may have had decompensation of her COPD, although I feel this was less likely. She does have ongoing tobacco abuse. Cessation counseling offered. She was treated with Solu-Medrol, nebulizer treatments, as well as a nicotine patch. Her oxygen has been weaned. She is at her respiratory status baseline. I do not think she needs any further steroid therapy in that she has only been on it for three days. We will discontinue her steroids upon discharge. 4. Metabolic encephalopathy, resolved. Likely secondary to narcotic abuse. 5. Alcohol abuse. The patient is on folic acid, multivitamin, thiamine. She was on Serax as needed, which she did not require. She had not exhibited any signs or symptoms of delirium tremens or withdrawal. Cessation counseling provided. 6. Hepatitis C. She has followed up previously with Dr. Diaz for this and received therapy for this in the past. 7. Atrial fibrillation. She is rate controlled with digoxin and a beta coni. She is anticoagulated with Eliquis. 8. Type 2 diabetes. She has been on sliding-scale insulin while in hospital. She is continued on Neurontin for her neuropathy. 9. Hypertension. She is on Toprol XL and Cozaar. 10. Deep venous thrombosis (DVT) prophylaxis. This patient has been on Eliquis. DISPOSITION: The patient is being discharged home to her safe previous living environment. She is at her functional baseline. She is to followup with her primary care physician (PCP) within seven days. 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 Followup with Dr. Bates within two weeks. Her activity is as prior to admission. Her diet is as prior to admission. She is to avoid alcohol, tobacco, and any illicit substances, and return to the emergency room (ER) if her symptoms worsen. DISCHARGE MEDICATIONS: - folic acid 1 mg daily - levofloxacin 500 mg daily for four days - multivitamin one tablet daily - Nicoderm patch 14 mg for 24 hours transdermally daily - thiamine 100 mg daily - Proventil HFA 167mcg inhaled two puffs as needed - Eliquis 5 mg twice a day - digoxin 0.25 mg daily - Lasix 40 mg daily - gabapentin 300 mg three times a day - losartan 100 mg daily - metformin 1 gram daily - metoprolol succinate 50 mg daily - Advair 250/50 one puff daily - Spiriva 18 mcg daily Greater than 30 minutes were spent organizing disposition.
== END 2016-04-05 10:15 | disposition home or self-care (01) | DRG 137 ==
LOC: M ED 15:39 → M ED INP 20:23 → M OR 04-03 15:40 → M MS5PR 04-04 15:00 → OBSVTOIN 04-04 16:32
PROVIDERS: ADMIT Hospitalist; ATTEND Internal Medicine
DX: J69.0 Pneumonitis due to inhalation of food and vomit (principal); J96.01 Acute respiratory failure with hypoxia; G93.41 Metabolic encephalopathy; E87.2 Acidosis; J44.1 Chronic obstructive pulmonary disease with (acute) exacerbation; F10.10 Alcohol abuse, uncomplicated; F11.10 Opioid abuse, uncomplicated; F17.200 Nicotine dependence, unspecified, uncomplicated; I48.91 Unspecified atrial fibrillation; B18.2 Chronic viral hepatitis C; E11.9 Type 2 diabetes mellitus without complications; I10 Essential (primary) hypertension; Z79.01 Long term (current) use of anticoagulants; Z79.899 Other long term (current) drug therapy; Z88.2 Allergy status to sulfonamides; Z91.041 Radiographic dye allergy status; Z95.0 Presence of cardiac pacemaker; F31.9 Bipolar disorder, unspecified

== ENCOUNTER 2016-04-10 10:20 | Observation (INO) | payer OTHER ==
[~2016-04-10] VITALS: Ht 154.9 cm; Wt 51.9 kg
[~2016-04-10 10:20] MED LIST changes: +DIGO0.25 PO; +FOLI1TAB2 PO; +LEVO500T32 PO; +METO-207 PO; +NICO14PA TD; +THIA100TA PO; +VITMTA PO
[2016-04-10 10:49] LABS: BASO % 0.4 % (0.0-1.0); EOS # 0.1 K/mm3 (0.0-0.50); EOS % 0.7 % (0.0-3.0); LARGE UNSTAINED CELL # 0.3 K/mm3 (0.0-0.4); LARGE UNSTAINED CELL % 3.8 % (0.0-4.0); LYMPH % 23.3 % (24.0-44.0); MEAN CORPUSCULAR HEMOGLOBIN 30.1 pg (27.0-33.0); MEAN CORPUSCULAR VOLUME 88.7 fl (80.0-96.0); MONO # 0.5 K/mm3 (0.0-0.8); MONO % 6.3 % (0.0-5.0); NEUTROPHILS # 5.6 K/mm3 (1.8-7.7); NEUTROPHILS % 65.5 % (36.0-66.0); PLATELET COUNT, AUTOMATED 224 k/mm3 (150-450); RED CELL DISTRIBUTION WIDTH 12.9 % (11.5-14.5); WHITE BLOOD COUNT 8.6 K/mm3 (4.0-10.0)
[2016-04-10 10:59] LABS: INR 0.91
[2016-04-10 11:09] LABS: ANION GAP 9 MEQ/L (8-16); BLOOD UREA NITROGEN 16 MG/DL (7-18); CALCIUM LEVEL 8.9 MG/DL (8.5-10.1); CARBON DIOXIDE LEVEL 27 MEQ/L (21-32); CHLORIDE LEVEL 103 MEQ/L (98-107); CREATININE FOR GFR 0.89 MG/DL (0.55-1.02); GLOMERULAR FILTRATION RATE > 60.0 (>58); GLUCOSE, FASTING 119 MG/DL (70-105); POTASSIUM SERUM 4.5 MEQ/L (3.5-5.1); SODIUM LEVEL 139 MEQ/L (136-145)
[2016-04-10 11:19] LABS: DIGOXIN LEVEL 0.3 NG/ML (0.5-2.0)
[2016-04-10] MEDS ORDERED: IPRATROPIUM 0.5MG/ALBUTEROL 2.5MG INH SOL UD 3ML (DUONEB)(J7620) As Ordered ONE (11:26)
[2016-04-10] MEDS ORDERED: ASPIRIN 81 MG CHEW TABLET As Ordered ONE (11:30)
--- NOTE | 2016-04-10 11:43 | REP ---
CHEST X-RAY PA AND LATERAL: 04/10/2016. Clinical History: Dyspnea. Comparison: AP portable chest 04/02/2016, two-view chest 08/30/2015. Findings: Multilead AICD pacer with leads in the right atrium, right ventricle and epicardial lead, all unchanged. The battery unit is over the left midchest. Lungs are marginally adequate in the degree of inflation. There is no pleural effusion or dense consolidation. No pleural thickening, apical scarring or pneumothorax. Some minor fibrotic changes are present. Heart not grossly enlarged for this degree of inflation. There is no aortic aneurysm. The airway is intact. The bony thorax shows no compression deformity. No free air under the diaphragm. Impression: 1. Borderline heart size without pulmonary edema, pleural effusion or definite acute infiltrate. Lungs only marginally adequate in the degree of inflation. There is no venous hypertension or edema. 2. Multi lead AICD pacer as before. No pneumothorax. 3. Bones intact. No free air. Signed by Norman Junior MD 04/10/2016 11:45 A
[2016-04-10] MEDS ORDERED: ALBU17IN INH (14:19)
[2016-04-10] MEDS ORDERED: SPIR1CAP INH (14:19)
--- NOTE | 2016-04-10 14:56 | REP ---
Duplex extremity venous ultrasound: Bilateral lower extremities. History: Deformity and swelling. Findings: The deep veins are anechoic and fully compressible from the groin to the popliteal fossa in the right and left lower extremity. Color flow imaging is homogeneous. Spectral Doppler interrogation demonstrates intact respiratory variation in flow and normal manual augmentation of flow. There is no evidence of deep vein thrombosis. A 4.5 x 0.9 x 2.6 cm cyst is seen in the popliteal soft tissues on the right consistent with a Ovalle's cyst. Impression: Negative bilateral lower extremity duplex venous ultrasound. No evidence of deep vein thrombosis. 4.5 cm Ovalle's cyst on the right. Signed by Nam Root MD 04/10/2016 02:47 P
[2016-04-10] MEDS ORDERED: GLUCOSE 4 GM CHEW TABLET PO PRN (15:00)
[2016-04-10] MEDS ORDERED: DEXTROSE 50% 50 ML SYRINGE IV PRN (15:00)
[2016-04-10] MEDS ORDERED: GLUCAGON FOR INJ 1 MG VIAL (J1610) SC PRN (15:00)
[2016-04-10] MEDS ORDERED: ONDANSETRON 4MG/2ML VIAL (J2405) IV PRN (15:00)
--- NOTE | 2016-04-10 15:49 | REP ---
CT CHEST WITHOUT IV CONTRAST: CT chest is performed without IV contrast. Sagittal and coronal reconstruction images are performed. Comparison is made with prior CT 04/02/2016. Diffuse reticular nodular infiltrates in the right lung have mildly increased. There is a new peripheral infiltrate in the left upper lobe. This is just below the level of the twin. There is bibasilar mild atelectasis. There is underlying scattered interstitial fibrosis. There is mild emphysematous changes and bullous changes in both upper lobes as well as mild diffuse bronchiectasis. There is a left sided pace maker. Heart is not enlarged. There is no thoracic aortic aneurysm. No significantly enlarged lymph nodes are seen in the chest. There is no pleural or pericardial effusion. Visualized upper abdominal structures are unchanged with prominent renal pelves bilaterally. IMPRESSION: There is a mild increase in the diffuse reticular nodular infiltrates in the right lung. There is a new infiltrate in the peripheral left lung, somewhat inferiorly. Signed by Jared Ballesteros MD 04/10/2016 05:00 P
[2016-04-10 15:55] VITALS: BP 129/77
[2016-04-10] MEDS ORDERED: ALBUTEROL SULFATE 2.5 MG/0.5 ML INH NEB SOLN NEB PRN (16:00)
--- NOTE | 2016-04-10 16:13 | EDDOCDS ---
Physician Documentation [facility] Name: Cynthia Hennessy Age: 50 yrs Sex: Female : 1965 Arrival Date: 04/10/2016 Time: 10:20 Bed 13 Private MD: Martina Vasquez S Disposition: 04/10/16 14:07 Hospitalization ordered by Nicole Harvey for Inpatient Admission. Preliminary diagnosis is Chest pain, unspecified. - Bed requested for PCU. - Status is Inpatient Admission. hs1 - Condition is Stable. - Problem is new. - Symptoms are unchanged. Historical: - Allergies: IV Dye; SULFA (SULFONAMIDES); - Home Meds: 1. Advair Diskus inhalation Inhl 2 times per day out of medication 2. Albuterol Inhl as needed out of medication 3. Digoxin Oral once daily (Last dose: 04/07/2016) 4. Eliquis oral Unknown 2 times per day (Last dose: 04/07/2016 20:00) 5. Gabapentin Oral 3 times per day (Last dose: 04/07/2016) 6. Spiriva with HandiHaler 18 mcg Inhl CpDv 1 cap once daily out of medication 7. metformin 1,000 mg Oral tab 1 tab 2 times per day (Last dose: 04/07/2016) 8. losartan oral Unknown 2 times per day (Last dose: 04/07/2016) 9. Naprosyn Oral as needed (Last dose: Unknown) - PMHx: Atrial Fib; COPD; Diabetes - NIDDM: controlled; Hypertension; LBBB; - PSHx: kidney surgery; Chest Tube- Right; defibbrilator placement; Pacemaker Insertion; heart cath; ; - Social history: Smoking status: Patient uses tobacco products, light tobacco smoker. No barriers to communication noted. - Family history: No immediate family members are acutely ill. - : The pt / caregiver states he / she is on anticoagulants: Eliquis Home medication list is obtained from the patient. - Exposure Risk Screening:: None identified. PHYSICIST SOLID STATE: 04/10 16:12 LMP N/A - Post-menopause hs1 Vital Signs: 10:22 BP 139 / 88; Pulse 95; Resp 18; Temp 98.1(O); Pulse Ox 95% on R/A; Weight 56.7 kg / 125 nb2 lbs (R); Height 5 ft. 1 in. (154.94 cm) (R); Pain 8/10; 10:28 BP 149 / 85 (auto/); hs1 10:28 Pulse 98 MON; Pulse Ox 98% ; hs1 10:43 BP 140 / 79 (auto/); hs1 10:43 Pulse 98 MON; Pulse Ox 95% ; hs1 10:58 BP 133 / 77 (auto/); hs1 10:58 Pulse 94 MON; Pulse Ox 96% ; hs1 11:13 BP 148 / 69 (auto/); hs1 11:13 Pulse 96 MON; Resp 18; Pulse Ox 93% ; hs1 11:28 BP 136 / 61 (auto/); hs1 11:28 Pulse 94 MON; Pulse Ox 94% ; hs1 11:43 BP 144 / 67 (auto/); hs1 11:43 Pulse 98 MON; Pulse Ox 93% ; hs1 11:57 Pulse 100 MON; Pulse Ox 95% ; hs1 11:58 BP 139 / 76 (auto/); hs1 12:13 BP 146 / 82 (auto/); hs1 12:13 Pulse 98 MON; Pulse Ox 94% ; hs1 12:28 BP 140 / 79 (auto/); hs1 12:28 Pulse 96 MON; Resp 18; Pulse Ox 94% ; hs1 12:43 BP 152 / 82 (auto/); hs1 12:43 Pulse 96 MON; Pulse Ox 95% ; hs1 12:58 BP 144 / 72 (auto/); hs1 12:59 Pulse 92 MON; Pulse Ox 97% ; hs1 13:13 BP 142 / 73 (auto/); hs1 13:13 Pulse 90 MON; Pulse Ox 95% ; hs1 13:28 BP 135 / 72 (auto/); hs1 13:28 Pulse 88 MON; Pulse Ox 96% ; hs1 15:33 BP 129 / 77; Pulse 84; Resp 18; Temp 98.9(TE); Pulse Ox 96% ; Pain 5/10; hs1 10:22 Body Mass Index 23.62 (56.70 kg, 154.94 cm) nb2 MDM: 10:26 ECG WITH READING ER PHYS+CARDIAG ordered. EDMS 10:31 Photocomposing Machine Operator/Pulse Ox/q 30 min VS ordered. br1 10:31 IV Saline Lock ordered. br1 10:31 Rhythm Strip to chart ordered. br1 10:31 Undress patient appropriately for examination ordered. br1 10:32 Basic Metabolic Profile Ordered. EDMS 10:32 CBC with Diff Ordered. EDMS 10:32 Cardiac Injury Profile Ordered. EDMS 10:32 Troponin Ordered. EDMS 10:32 Chest, 2 View (pa\E\lat) Ordered. EDMS 10:45 PT/INR Ordered. EDMS 10:45 PTT Ordered. EDMS 10:49 DIGOXIN LEVEL Ordered. EDMS 11:19 Aspirin 324 mg PO once ordered. br1 11:19 Albuterol-Ipratropium 3 ml Inhalation once ordered. br1 11:19 Call Respiratory ordered. br1 11:20 Call Respiratory complete. nb2 11:21 Basic Metabolic Profile Reviewed. br1 11:21 CBC with Diff Reviewed. br1 11:21 Troponin Reviewed. br1 11:21 PT/INR Reviewed. br1 11:21 PTT Reviewed. br1 12:15 Financial registration complete. mm15 12:16 [facility] Payment Agreement was scanned into [employer] and attached to record. mm15 13:42 Basic Metabolic Profile Reviewed. br1 13:42 DIGOXIN LEVEL Reviewed. br1 13:42 D-DIMER QUANT Reviewed. br1 13:42 Cardiac Injury Profile Reviewed. br1 13:42 Troponin Reviewed. br1 13:42 PT/INR Reviewed. br1 13:42 PTT Reviewed. br1 13:42 Chest, 2 View (pa\E\lat) Reviewed. [facility] 14[facility] ordered. br1 14:01 BED REQUEST+ADM ordered. EDMS 14:04 CT Chest Without Contrast Ordered. EDMS 14:05 Ultrasound Bilateral LE R/O DVT Ordered. EDMS 15:02 Admission / Observation Status ordered. EDMS 15:02 OTHER CUSTOM DIETS ordered. EDMS 15:03 CARDIAC MARKER PANEL Ordered. EDMS 15:03 CARDIAC MARKER PANEL Ordered. EDMS 15:06 VENT & PERFUSION LUNG SCAN Ordered. EDMS Administered Medications: 11:29 Drug: Albuterol-Ipratropium 3 ml [ipratropium-albuterol 0.5 mg-3 mg(2.5 mg base)/3 mL js11 nebulization soln (3 mL)] Route: Inhalation; 11:30 Drug: Aspirin 324 mg [aspirin 81 mg chewable tablet (4 tabs)] Route: PO; hs1 Signatures: Dispatcher [employer] EDMS Stiven Arita MD MD br1 Otilia Jauregui RN RN hs1 Uma Weinstein [id number] Sanna Gomez RN RN sls2 Luana Aguilera nb2 Jose Martin Turpin [id number] The chart was reviewed and I authenticate all verbal orders and agree with the evaluation and treatment provided.Corrections: (The following items were deleted from the chart) 10:49 10:45 DIGOXIN LEVEL+LAB ordered. EDMS EDMS 11:24 11:22 D-DIMER QUANT+LAB ordered. EDMS EDMS 15:06 15:03 VENT & PERFUSION LUNG SCAN ordered. EDMS EDMS Attachments: 12:16 [facility] [place] [id number] MTDD
--- NOTE | 2016-04-10 16:14 | EDDOCDS ---
Nurse's Notes [facility] Name: Cynthia Hennessy Age: 50 yrs Sex: Female : 1965 Arrival Date: 04/10/2016 Time: 10:20 Bed 13 Private MD: Martina Vasquez S Diagnosis: Chest pain, unspecified Presentation: 04/10 10:26 Red Flag criteria, patient assessed and taken directly to a bed. [facility] 10:30 Presenting complaint: Patient states: Chest pains since to left breast. hs1 Patient states is concerned for pleurisy as she recently had pneumonia discharged from hospital last Sunday. Patient states painful when taking a deep breath and coughing. Aspirin was not taken prior to arrival. Adult Sepsis Screening: The patient does not have new or worsening altered mentation. Patient's respiratory rate is less than 22. Systolic blood pressure is greater than 100. Patient has a qSOFA score of 0- Negative Sepsis Screen. Suicide/Homicide risk assessment- the patient denies having any suicidal and/or homicidal ideations and does not present with any other emotional, behavioral or mental health complaints. Status: Patient is not a manager client service or dependent. Transition of care: patient was not received from another setting of care. 10:30 Acuity: ELIAS Level 2 hs1 10:30 Method Of Arrival: Walkin/Carried/Asstd hs1 Triage Assessment: 10:35 General: Appears uncomfortable. Pain: Location: left breast Pain currently is 7 out of hs1 10 on a pain scale. Quality of pain is described as sharp. HIV screening NA for this visit Offered previously. Cardiovascular: Chest pain is described as Pain is 7 out of 10 on a pain scale. radiates Does not radiate. episodes are continuous began since is aggravated by breathing. Derm: Skin is pink, warm & dry. normal. 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 Advair Diskus inhalation Inhl 2 times per day out of medication 2. Albuterol Inhl as needed out of medication 3. Digoxin Oral once daily (Last dose: 04/07/2016) 4. Eliquis oral Unknown 2 times per day (Last dose: 04/07/2016 20:00) 5. Gabapentin Oral 3 times per day (Last dose: 04/07/2016) 6. Spiriva with HandiHaler 18 mcg Inhl CpDv 1 cap once daily out of medication 7. metformin 1,000 mg Oral tab 1 tab 2 times per day (Last dose: 04/07/2016) 8. losartan oral Unknown 2 times per day (Last dose: 04/07/2016) 9. Naprosyn Oral as needed (Last dose: Unknown) - PMHx: Atrial Fib; COPD; Diabetes - NIDDM: controlled; Hypertension; LBBB; - PSHx: kidney surgery; Chest Tube- Right; defibbrilator placement; Pacemaker Insertion; heart cath; ; - Social history: Smoking status: Patient uses tobacco products, light tobacco smoker. No barriers to communication noted. - Family history: No immediate family members are acutely ill. - : The pt / caregiver states he / she is on anticoagulants: Eliquis Home medication list is obtained from the patient. - Exposure Risk Screening:: None identified. Screenin:59 Screening information is obtained from the patient. Fall risk: No risks identified. hs1 Assistance ADL's: requires no assistance with activities of daily living. Abuse/DV Screen: The patient / caregiver reports he/she is: not in a situation that causes fear, pain or injury. Nutritional screening: No deficits noted. Advance Directives: There is no active DNR order. home support is adequate. Assessment: 11:36 General: Appears in no apparent distress, Behavior is appropriate for age, cooperative. hs1 Cardiovascular: Rhythm is sinus rhythm with multifocal PVCs. Respiratory: Airway is patent Respiratory effort is even, unlabored, Respiratory pattern is regular, symmetrical, receiving breathing treatments at this time. 12:42 Reassessment: Patient appears in no apparent distress at this time. Patient states hs1 feeling better. Patient states symptoms have improved. Respiratory: Airway is patent Breath sounds are coarse bilaterally. Derm: Skin is pink, warm & dry. normal. 12:42 General: Reports that patient was able to reach PCP and they are calling in scripts for hs1 inhalers. . 12:59 General: Patient ambulatory to bathroom. Patient reports able to now take more of a hs1 deep breath. . Pain: Location: left lateral anterior chest. Neurological: No deficits noted. Respiratory: Airway is patent Respiratory effort is even, unlabored. 13:45 General: Appears in no apparent distress, comfortable, Behavior is appropriate for age, hs1 cooperative, Awaiting further plan of care. Patient resting and appears in no distress. Patient is comfortable. . 14:50 Reassessment: Patient appears in no apparent distress at this time. Patient states hs1 feeling better. Patient states symptoms have improved. Pain: Location: left lateral anterior chest Pain currently is 5 out of 10 on a pain scale. Respiratory: Airway is patent Respiratory effort is even, unlabored, Respiratory pattern is regular, symmetrical. Respiratory: Airway is patent Respiratory effort is even, unlabored, Respiratory pattern is regular, symmetrical. Vital Signs: 10:22 BP 139 / 88; Pulse 95; Resp 18; Temp 98.1(O); Pulse Ox 95% on R/A; Weight 56.7 kg (R); nb2 Height 5 ft. 1 in. (154.94 cm) (R); Pain 8/10; 10:28 BP 149 / 85 (auto/); hs1 10:28 Pulse 98 MON; Pulse Ox 98% ; hs1 10:43 BP 140 / 79 (auto/); hs1 10:43 Pulse 98 MON; Pulse Ox 95% ; hs1 10:58 BP 133 / 77 (auto/); hs1 10:58 Pulse 94 MON; Pulse Ox 96% ; hs1 11:13 BP 148 / 69 (auto/); hs1 11:13 Pulse 96 MON; Resp 18; Pulse Ox 93% ; hs1 11:28 BP 136 / 61 (auto/); hs1 11:28 Pulse 94 MON; Pulse Ox 94% ; hs1 11:43 BP 144 / 67 (auto/); hs1 11:43 Pulse 98 MON; Pulse Ox 93% ; hs1 11:57 Pulse 100 MON; Pulse Ox 95% ; hs1 11:58 BP 139 / 76 (auto/); hs1 12:13 BP 146 / 82 (auto/); hs1 12:13 Pulse 98 MON; Pulse Ox 94% ; hs1 12:28 BP 140 / 79 (auto/); hs1 12:28 Pulse 96 MON; Resp 18; Pulse Ox 94% ; hs1 12:43 BP 152 / 82 (auto/); hs1 12:43 Pulse 96 MON; Pulse Ox 95% ; hs1 12:58 BP 144 / 72 (auto/); hs1 12:59 Pulse 92 MON; Pulse Ox 97% ; hs1 13:13 BP 142 / 73 (auto/); hs1 13:13 Pulse 90 MON; Pulse Ox 95% ; hs1 13:28 BP 135 / 72 (auto/); hs1 13:28 Pulse 88 MON; Pulse Ox 96% ; hs1 15:33 BP 129 / 77; Pulse 84; Resp 18; Temp 98.9(TE); Pulse Ox 96% ; Pain 5/10; hs1 10:22 Body Mass Index 23.62 (56.70 kg, 154.94 cm) 2 Vitals: 10:22 Log In Time: April 10, 2016 at 10:20. nb2 10:23 RN notified that patient meets Red Flag criteria. nb2 ED Course: 10:22 Patient visited by Luana Aguilera. nb2 10:22 Martina Vasquez is Private Physician. nb2 10:22 Patient moved to Waiting nb2 10:23 Patient visited by Luana Aguilera. nb2 10:23 Patient visited by Luana Aguilera. nb2 10:23 Patient moved to Pre RCE nb2 10:24 Patient moved to 13 nb2 10:25 Inserted saline lock: 20 gauge in right forearm and blood collected. The patient hs1 tolerated the procedure well. 10:31 Triage Initiated hs1 10:36 The patient / caregiver is instructed regarding the plan of care and ED course. Cardiac hs1 monitor on. Pulse ox on. NIBP on. 10:36 Basic Metabolic Profile Sent. deg 10:36 CBC with Diff Sent. deg 10:36 Cardiac Injury Profile Sent. deg 10:36 Troponin Sent. deg 10:58 Patient visited by Otilia Jauregui RN. hs1 10:58 DIGOXIN LEVEL Sent. hs1 10:58 PTT Sent. hs1 10:58 PT/INR Sent. hs1 11:10 Patient visited by Otilia Jauregui RN. hs1 11:12 Stiven Arita MD is Attending Physician. br1 11:19 Patient visited by Stiven Arita MD. br1 12:07 Chest, 2 View (pa\E\lat) Returned. EDMS 12:16 [facility] [place] Payment Agreement was scanned into Yn[employer] and attached to record. mm15 12:24 Patient visited by Otilia Jauregui RN. hs1 12:37 Otilia Jauregui RN is Primary Nurse. hs1 12:59 Patient visited by Otilia Jauregui RN. hs1 13:59 Patient visited by Stiven Arita MD. br1 14:07 Nicole Harvey is Hospitalizing Provider. br1 15:03 Ultrasound Bilateral LE R/O DVT Returned. EDMS 15:32 No procedures done that require assistance. hs1 Administered Medications: 11:29 Drug: Albuterol-Ipratropium 3 ml [ipratropium-albuterol 0.5 mg-3 mg(2.5 mg base)/3 mL js11 nebulization soln (3 mL)] Route: Inhalation; 11:30 Drug: Aspirin 324 mg [aspirin 81 mg chewable tablet (4 tabs)] Route: PO; hs1 RT: 11:29 Initial Med Neb Given as ordered Patient was instructed and evaluated on procedure js11 Patient tolerated procedure well without adverse effect. Oxygen is room air. Respiratory: Breath sounds with crackles bilaterally. Breath sounds are diminished bilaterally. Order Results: Lab Order: Basic Metabolic Profile; SPEC'M 04/10/16 10:38 Test: GLUCOSE, FASTING; Value: 119; Range: 70-105; Abnormal: Above high normal; Units: MG/DL; Status: F Test: BLOOD UREA NITROGEN; Value: 16; Range: 7-18; Units: MG/DL; Status: F Test: CREATININE FOR GFR; Value: 0.89; Range: 0.55-1.02; Units: MG/DL; Status: F Test: GLOMERULAR FILTRATION RATE; Value: > 60.0; Range: >58; Status: F Test: SODIUM LEVEL; Value: 139; Range: 136-145; Units: MEQ/L; Status: F Test: POTASSIUM SERUM; Value: 4.5; Range: 3.5-5.1; Units: MEQ/L; Status: F Test: CHLORIDE LEVEL; Value: 103; Range: 98-107; Units: MEQ/L; Status: F Test: CARBON DIOXIDE LEVEL; Value: 27; Range: 21-32; Units: MEQ/L; Status: F Test: ANION GAP; Value: 9; Range: 8-16; Units: MEQ/L; Status: F Test: CALCIUM LEVEL; Value: 8.9; Range: 8.5-10.1; Units: MG/DL; Status: F Test Note: ; Units are mL/min/1.73 m2 Chronic Kidney Disease Staging per NKF: Stage I & II GFR >=60 Normal to Mildly Decreased Stage III GFR 30-59 Moderately Decreased Stage IV GFR 15-29 Severely Decreased Stage V GFR <15 Very Little GFR Left ESRD GFR <15 on EVENTS INTERN Lab Order: CBC with Diff; SPEC'M 04/10/16 10:38 Test: WHITE BLOOD COUNT; Value: 8.6; Range: 4.0-10.0; Units: K/mm3; Status: F Test: RED BLOOD COUNT; Value: 5.45; Range: 4.00-5.40; Abnormal: Above high normal; Units: M/mm3; Status: F Test: HEMOGLOBIN; Value: 16.4; Range: 12.0-16.0; Abnormal: Above high normal; Units: g/dl; Status: F Test: HEMATOCRIT; Value: 48.3; Range: 36.0-47.0; Abnormal: Above high normal; Units: %; Status: F Test: MEAN CORPUSCULAR VOLUME; Value: 88.7; Range: 80.0-96.0; Units: fl; Status: F Test: MEAN CORPUSCULAR HEMOGLOBIN; Value: 30.1; Range: 27.0-33.0; Units: pg; Status: F Test: MEAN CORPUSCULAR HGB CONC; Value: 34.0; Range: 32.0-36.5; Units: g/dl; Status: F Test: RED CELL DISTRIBUTION WIDTH; Value: 12.9; Range: 11.5-14.5; Units: %; Status: F Test: PLATELET COUNT, AUTOMATED; Value: 224; Range: 150-450; Units: k/mm3; Status: F Test: NEUTROPHILS %; Value: 65.5; Range: 36.0-66.0; Units: %; Status: F Test: LYMPH %; Value: 23.3; Range: 24.0-44.0; Abnormal: Below low normal; Units: %; Status: F Test: MONO %; Value: 6.3; Range: 0.0-5.0; Abnormal: Above high normal; Units: %; Status: F Test: EOS %; Value: 0.7; Range: 0.0-3.0; Units: %; Status: F Test: BASO %; Value: 0.4; Range: 0.0-1.0; Units: %; Status: F Test: LARGE UNSTAINED CELL %; Value: 3.8; Range: 0.0-4.0; Units: %; Status: F Test: NEUTROPHILS #; Value: 5.6; Range: 1.8-7.7; Units: K/mm3; Status: F Test: LYMPH #; Value: 2.0; Range: 1.5-4.5; Units: K/mm3; Status: F Test: MONO #; Value: 0.5; Range: 0.0-0.8; Units: K/mm3; Status: F Test: EOS #; Value: 0.1; Range: 0.0-0.50; Units: K/mm3; Status: F Test: BASO #; Value: 0.0; Range: 0.0-0.2; Units: K/mm3; Status: F Test: LARGE UNSTAINED CELL #; Value: 0.3; Range: 0.0-0.4; Units: K/mm3; Status: F Lab Order: Cardiac Injury Profile; SPEC'M 04/10/16 10:38 Test: CPK CREATINE PHOSPHOKINASE; Value: 38; Range: 26-192; Units: U/L; Status: F Test: CK-MB VALUE MASS; Value: 1.2; Range: 0.0-3.6; Units: NG/ML; Status: F Test: MB/CK RELATIVE INDEX; Value: 3.15; Range: < OR =4; Status: F Test Note: ; DIAGNOSIS CRITERIA MMB ng/ml Relative Index (RI) NON-AMI < or = 5 N/A LAGUNA ZONE > 5 < or = 4 AMI > 5 > 4 Lab Order: Troponin; SPEC'M 04/10/16 10:38 Test: TROPONIN I; Value: < 0.02; Range: < 0.10; Units: NG/ML; Status: F Test Note: ; Troponin I Reference Interval for Upworthy LOCI: 99th Percentile= 0.00-0.045 ng/ml Risk Stratification: <= 0.10 ng/ml Decreased Risk for Adverse Clinical Events. 0.10-1.50 ng/ml Increased Risk for Adverse Clinical Events. Evaluation of additional criterion and/or repeat testing in 2-6 hours is suggested to rule out myocardial damage. >= 1.50 ng/ml Indicative of Myocardial Injury. Lab Order: PT/INR; [facility] 04/10/16 10:38 Test: PROTHROMBIN TIME; Value: 12.4; Range: 12.3-14.5; Units: SECONDS; Status: F Test: INR; Value: 0.91; Status: F Test Note: ; THERAPUTIC HUMAN INR VALUES INDICATIONS NORMAL RANGES PROPHYLAXIS/TREATMENT OF: VENOUS THROMBOSIS 2.0-3.0 PULMONARY EMBOLISM 2.0-3.0 PREVENTION OF SYSTEMIC EMBOLISM FROM: TISSUE HEART VALVES 2.0-3.0 ACUTE MYOCARDIAL INFARCTION 2.0-3.0 VALVULAR HEART DISEASE 2.0-3.0 ATRIAL FIBRILLATION 2.0-3.0 MECHANICAL VALVES(HIGH RISK) 2.5-3.5 RECURRENT MYOCARDIAL INFARCTION 2.5-3.5 Lab Order: PTT; [facility] 04/10/16 10:38 Test: PARTIAL THROMBOPLASTIN TIME; Value: 29.4; Range: 26.6-37.1; Units: SECONDS; Status: F Lab Order: DIGOXIN LEVEL; [facility] 04/10/16 10:38 Test: DIGOXIN LEVEL; Value: 0.3; Range: 0.5-2.0; Abnormal: Below low normal; Units: NG/ML; Status: F Lab Order: D-DIMER QUANT; [facility] 04/10/16 10:38 Test: D-DIMER QUANT; Value: 1883.5; Range: <500; Abnormal: Above high normal; Units: ng/ml; Status: F Lab Order: CARDIAC MARKER PANEL; [facility] 04/10/16 15:21 Test: CPK CREATINE PHOSPHOKINASE; Value: 30; Range: 26-192; Units: U/L; Status: F Test: CK-MB VALUE MASS; Value: 1.0; Range: 0.0-3.6; Units: NG/ML; Status: F Test: MB/CK RELATIVE INDEX; Value: 3.33; Range: < OR =4; Status: F Test: TROPONIN I; Value: < 0.02; Range: < 0.10; Units: NG/ML; Status: F Test Note: ; DIAGNOSIS CRITERIA MMB ng/ml Relative Index (RI) NON-AMI < or = 5 N/A L[place]UNA ZONE > 5 < or = 4 AMI > 5 > 4 Radiology Order: Chest, 2 View (pa\E\lat) Test: Chest, 2 View (pa\E\lat) REASON FOR EXAMINATION: Shortness of Breath; CHEST X-RAY PA AND LATERAL: 04/10/2016.; ; Clinical History: Dyspnea.; ; Comparison: AP portable chest 04/02/2016, two-view chest 08/30/2015.; ; Findings: Multilead AICD pacer with leads in the right atrium, right ventricle; and epicardial lead, all unchanged. The battery unit is over the left midchest.; Lungs are marginally adequate in the degree of inflation. There is no pleural; effusion or dense consolidation. No pleural thickening, apical scarring or; pneumothorax. Some minor fibrotic changes are present. Heart not grossly; enlarged for this degree of inflation. There is no aortic aneurysm. The airway; is intact. The bony thorax shows no compression deformity. No free air under; the diaphragm.; ; Impression:; ; 1. Borderline heart size without pulmonary edema, pleural effusion or definite; acute infiltrate. Lungs only marginally adequate in the degree of inflation.; There is no venous hypertension or edema.; ; 2. Multi lead AICD pacer as before. No pneumothorax.; ; 3. Bones intact. No free air.; ; ; Signed by; Norman Junior MD 04/10/2016 11:45 A; Radiology Order: Ultrasound Bilateral LE R/O DVT Test: Ultrasound Bilateral LE R/O DVT REASON FOR EXAMINATION: Deformity/Swelling; Duplex extremity venous ultrasound: Bilateral lower extremities.; ; History: Deformity and swelling.; ; Findings: The deep veins are anechoic and fully compressible from the groin to; the popliteal fossa in the right and left lower extremity. Color flow imaging is; homogeneous. Spectral Doppler interrogation demonstrates intact respiratory; variation in flow and normal manual augmentation of flow. There is no evidence; of deep vein thrombosis. A 4.5 x 0.9 x 2.6 cm cyst is seen in the popliteal soft; tissues on the right consistent with a Ovalle's cyst.; ; Impression:; ; Negative bilateral lower extremity duplex venous ultrasound. No evidence of deep; vein thrombosis. 4.5 cm Ovalle's cyst on the right.; ; ; Signed by; Nam Root MD 04/10/2016 02:47 P; Outcome: 14:07 Decision to Hospitalize by Provider. br1 15:54 Discharge Assessment: Patient awake, alert and oriented x 3. No cognitive and/or hs1 functional deficits noted. Patient verbalized understanding of disposition instructions. patient administered narcotics - no. The following High Risk Discharge criteria are identified: None. Admitted to PCU accompanied by nurse, accompanied by tech, via stretcher, with oxygen, on monitor, with chart. Condition: stable. CT Study completed. Ultrasound Study completed. Admission hand-off: Report called to Luana Tyler RN PCU. Property sent home with patient. 16:13 Patient left the ED. hs1 Signatures: Dispatcher [employer] EDMS Lisa Groves, Rubber Extrusion Machine Operator Unit deg Kate Alvarado RN RN Stiven Gomes MD MD br1 Otilia Jauregui RN RN hs1 Jose Martin Turpin js11 Uma Weinstein mm15 Luana Aguilera nb2 [facility]
[2016-04-10 16:29] VITALS: BP 135/80
[2016-04-10] MEDS: PANTOPRAZOLE 40MG INJ (PROTONIX) (C9113) IV SCH (16:44)
[2016-04-10] MEDS: GABAPENTIN 300 MG CAP PO SCH ×2 (16:45→20:02)
[2016-04-10] MEDS: THIAMINE 100 MG TAB PO SCH (16:45)
[2016-04-10] MEDS: LOSARTAN 50 MG TAB PO SCH (16:45)
[2016-04-10] MEDS: DIGOXIN 0.25 MG TAB PO SCH (16:46)
[2016-04-10] MEDS: FUROSEMIDE 40 MG TAB PO SCH (16:46)
[2016-04-10] MEDS: METOPROLOL SUCC (TopROL XL) 50MG **XL** TAB PO SCH (16:46)
[2016-04-10] MEDS: HumaLOG INSULIN (NovoLOG) PER UNIT SC SCH (16:47)
[2016-04-10] MEDS: FOLIC ACID 1 MG TAB PO SCH (16:47)
[2016-04-10] MEDS ORDERED: diphenhydrAMINE 25 MG CAP PO PRN (19:00)
[2016-04-10] MEDS: ACETAMINOPHEN 500 MG TAB PO PRN (19:37)
[2016-04-10] MEDS: ADVAIR DISKUS 250/50 INH PWD INH SCH (19:42)
[2016-04-10 20:00] VITALS: BP 119/70
[2016-04-10] MEDS: APIXABAN 5 MG TAB (ELIQUIS) PO SCH (20:02)
[2016-04-10] MEDS ORDERED: HumaLOG INSULIN (NovoLOG) PER UNIT SC SCH (21:00)
[2016-04-10] MEDS ORDERED: SLF 3 ML SYR IV PRN (22:45)
[2016-04-11] VITALS: BP 101/50
[2016-04-11 04:00] VITALS: BP 110/66
[2016-04-11] MEDS: ACETAMINOPHEN 500 MG TAB PO PRN (04:20)
[2016-04-11] MEDS: SLF 3 ML SYR IV SCH ×2 (04:20→12:36)
[2016-04-11 06:03] LABS: BASO % 0.4 % (0.0-1.0); EOS # 0.1 K/mm3 (0.0-0.50); EOS % 1.7 % (0.0-3.0); LARGE UNSTAINED CELL # 0.4 K/mm3 (0.0-0.4); LARGE UNSTAINED CELL % 4.4 % (0.0-4.0); LYMPH % 24.6 % (24.0-44.0); MEAN CORPUSCULAR HEMOGLOBIN 29.6 pg (27.0-33.0); MEAN CORPUSCULAR HGB CONC 32.6 g/dl (32.0-36.5); MEAN CORPUSCULAR VOLUME 90.6 fl (80.0-96.0); MONO # 0.6 K/mm3 (0.0-0.8); MONO % 7.4 % (0.0-5.0); NEUTROPHILS # 4.9 K/mm3 (1.8-7.7); NEUTROPHILS % 61.5 % (36.0-66.0); PLATELET COUNT, AUTOMATED 223 k/mm3 (150-450); RED CELL DISTRIBUTION WIDTH 12.9 % (11.5-14.5); WHITE BLOOD COUNT 7.9 K/mm3 (4.0-10.0)
[2016-04-11 06:09] LABS: ANION GAP 9 MEQ/L (8-16); BLOOD UREA NITROGEN 16 MG/DL (7-18); CALCIUM LEVEL 8.5 MG/DL (8.5-10.1); CARBON DIOXIDE LEVEL 24 MEQ/L (21-32); CHLORIDE LEVEL 102 MEQ/L (98-107); CREATININE FOR GFR 1.03 MG/DL (0.55-1.02); GLOMERULAR FILTRATION RATE > 60.0 (>58); GLUCOSE, FASTING 124 MG/DL (70-105); POTASSIUM SERUM 4.1 MEQ/L (3.5-5.1); SODIUM LEVEL 135 MEQ/L (136-145)
[2016-04-11 08:00] VITALS: BP 113/62
[2016-04-11] MEDS ORDERED: TIOTROPIUM INHALER/CAPSULE (SPIRIVA) INH SCH (08:00)
[2016-04-11] MEDS: ADVAIR DISKUS 250/50 INH PWD INH SCH (08:20)
[2016-04-11] MEDS: HumaLOG INSULIN (NovoLOG) PER UNIT SC SCH ×2 (08:25→11:58)
[2016-04-11] MEDS: PANTOPRAZOLE 40MG INJ (PROTONIX) (C9113) IV SCH (08:26)
[2016-04-11] MEDS: FOLIC ACID 1 MG TAB PO SCH (08:26)
[2016-04-11] MEDS: GABAPENTIN 300 MG CAP PO SCH (08:26)
[2016-04-11] MEDS: LOSARTAN 50 MG TAB PO SCH (08:26)
[2016-04-11] MEDS: DIGOXIN 0.25 MG TAB PO SCH (08:26)
[2016-04-11 08:27] VITALS: BP 110/66
[2016-04-11] MEDS: METOPROLOL SUCC (TopROL XL) 50MG **XL** TAB PO SCH (08:27)
[2016-04-11] MEDS: FUROSEMIDE 40 MG TAB PO SCH (08:27)
[2016-04-11] MEDS: APIXABAN 5 MG TAB (ELIQUIS) PO SCH (08:27)
[2016-04-11] MEDS: THIAMINE 100 MG TAB PO SCH (08:27)
[2016-04-11] MEDS ORDERED: DOXY-278 PO (08:48)
[2016-04-11] MEDS ORDERED: IBUP600T26 PO (08:48)
--- NOTE | 2016-04-11 09:20 | REP ---
V/Q SCAN: Following the intravenous administration of 5.4 mCi of technetium 99m tagged MAA and the inhalation of 1.0 mCi of technetium 99m DTPA aerosol, multiple images of the lungs are obtained in various projections. Matching subsegmental ventilation and perfusion defects are seen in the right upper lobe. There is a large perfusion defect in the left lingula. Chest CT from 04/10/2016 shows an ill-defined parenchymal opacity in this region. The perfusion defect is larger than the opacity on the CT. IMPRESSION: Large perfusion defect in the lingula does not demonstrate a corresponding ventilation defect. There is a smaller corresponding parenchymal opacity on CT of the chest 04/10/2016. Findings are most consistent with a high probability of pulmonary embolism. Signed by Jared Ballesteros MD 04/11/2016 04:51 P
--- NOTE | 2016-04-11 16:19 | DSES ---
DATE OF ADMISSION: 04/10/2016 DATE OF DISCHARGE: 04/11/2016 PRIMARY CARE PROVIDER: NATY Esquivel CONSULTATIONS: None. PROCEDURES PERFORMED: None. COMPLICATIONS: None. ADMISSION/DISCHARGE DIAGNOSES: 1. Community-acquired pneumonia, seen previously on admission. 2. Elevated D-dimer. 3. History of alcohol abuse. 4. History of polysubstance abuse. 5. Tobacco use. 6. History of bipolar disorder. 7. History of hepatitis C, follows outpatient with Dr. Diaz. 8. Diabetes. BRIEF HOSPITAL COURSE: Ms. Hennessy is a pleasant 50-year-old female who was recently admitted and discharged from [facility] for multilobar pneumonia. Finished her antibiotic a few days ago and developed worsening pleuritic chest pain on the left chest wall reproducible with deep inspiration and cough. She denies any hemoptysis. No dyspnea on exertion or loss of consciousness. While in the emergency department she did have workup consisting of a D-dimer that was elevated greater than 500. She did have an ultrasound of the lower extremities that ruled out deep venous thrombosis (DVT). However, she did require a VQ scan to rule out pulmonary embolus (PE) since we are unable to get a CT angio of the chest due to her allergies to fish and contrast media. At any rate she was observed overnight, she did well, chest discomfort was much improved with Tylenol. She is on Eliquis currently for atrial fibrillation rapid ventricular response (RVR) which is rate controlled and her VQ scan did show a VQ mismatch in the area that is associated with infiltrate on prior chest CT with no contrast. I did have an opportunity to discuss this with pulmonology based on her symptomatology. This likely is pleuritic chest pain related to her pneumonia. Will continue to treat with doxycycline. Did discuss with the patient the fact that she is already on Eliquis and anticoagulated, that there was no further need to work up possible PE or treatment since the Eliquis should cover her just fine for this as well. For further information regarding intake, physical, labs, diagnostics, please refer to the history and physical (H P). PHYSICAL EXAMINATION: Today: Temperature 96.3 tympanic, pulse is 80, respiratory rate 18, blood pressure 113/62, SpO2 is 96% on room air. She does not desaturate when she ambulates. HEENT: Unremarkable. LUNGS: Clear. HEART: Regular rate and rhythm. ABDOMEN: Soft. EXTREMITIES: No edema or calf tenderness. LABORATORY DATA: White count 7.9, hemoglobin 15.7, platelets 223,000. Sodium 135, potassium 4.1, chloride 102, bicarbonate 24, anion gap 9, BUN 16, creatinine is 1.03, glucose 124, INR on admission was 0.91 and D-dimer was 1883.5. DISCHARGE CONDITION: Good. DISPOSITION: Discharge to home. DISCHARGE MEDICATIONS: - doxycycline 100 mg twice a day for seven more days - albuterol inhaler as directed - Eliquis 5 mg twice a day - digoxin 0.25 mg daily - folic acid 1 mg daily - Lasix 40 mg daily - gabapentin 300 mg three times a day - Cozaar 100 mg daily - metformin 1000 mg daily - metoprolol succinate ER 50 mg daily - multivitamin one tablet daily - Nicoderm patch 14 mg per 24-hour one patch applied daily - Advair Diskus 250/50 mcg inhaler one inhalation twice a day - thiamine 100 mg daily - Spiriva inhaler one capsule daily DISCHARGE INSTRUCTIONS: Discharge to home. Followup with Martina Vasquez in a week. She may want to repeat a CT of the chest, noncontrast, within the next 4-6 weeks and consider pulmonology referral as an outpatient. She should continue on the Eliquis for her anticoagulation, while she has a history of atrial fibrillation and I did reassure that this would cover for any venous thromboembolism, although I do suspect that her findings are consistent more with her recent infection. The pleuritic pain should improve over the next 1-2 weeks. She can use Tylenol for that. Avoid nonsteroidals while she is on the Eliquis. Activity as tolerated. Regular diet. Return to the emergency department if symptoms should worsen or progress. She voices understanding.
[2016-04-12] MEDS ORDERED: INFLUENZA QUADRIVALENT PF VACCINE 0.5ML SYRINGE/VIAL (90686) IM ONE (09:00)
--- NOTE | 2016-04-12 09:40 | ECGEPIP ---
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
--- NOTE | 2016-04-12 17:14 | EDDOCDS ---
Physician Documentation [facility] Name: Cynthia Hennessy Age: 50 yrs Sex: Female : 1965 Arrival Date: 04/10/2016 Time: 10:20 Bed 13 Private MD: Martina Vasquez S Disposition: 04/10/16 14:07 Hospitalization ordered by Nicole Harvey for Inpatient Admission. Preliminary diagnosis is Chest pain, unspecified. - Bed requested for PCU. - Status is Inpatient Admission. hs1 - Condition is Stable. - Problem is new. - Symptoms are unchanged. Historical: - Allergies: IV Dye; SULFA (SULFONAMIDES); - Home Meds: 1. Advair Diskus inhalation Inhl 2 times per day out of medication 2. Albuterol Inhl as needed out of medication 3. Digoxin Oral once daily (Last dose: 04/07/2016) 4. Eliquis oral Unknown 2 times per day (Last dose: 04/07/2016 20:00) 5. Gabapentin Oral 3 times per day (Last dose: 04/07/2016) 6. Spiriva with HandiHaler 18 mcg Inhl CpDv 1 cap once daily out of medication 7. metformin 1,000 mg Oral tab 1 tab 2 times per day (Last dose: 04/07/2016) 8. losartan oral Unknown 2 times per day (Last dose: 04/07/2016) 9. Naprosyn Oral as needed (Last dose: Unknown) - PMHx: Atrial Fib; COPD; Diabetes - NIDDM: controlled; Hypertension; LBBB; - PSHx: kidney surgery; Chest Tube- Right; defibbrilator placement; Pacemaker Insertion; heart cath; ; - Social history: Smoking status: Patient uses tobacco products, light tobacco smoker. No barriers to communication noted. - Family history: No immediate family members are acutely ill. - : The pt / caregiver states he / she is on anticoagulants: Eliquis Home medication list is obtained from the patient. - Exposure Risk Screening:: None identified. 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 1 in. (154.94 cm) (R); Pain 8/10; 10:28 BP 149 / 85 (auto/); hs1 10:28 Pulse 98 MON; Pulse Ox 98% ; hs1 10:43 BP 140 / 79 (auto/); hs1 10:43 Pulse 98 MON; Pulse Ox 95% ; hs1 10:58 BP 133 / 77 (auto/); hs1 10:58 Pulse 94 MON; Pulse Ox 96% ; hs1 11:13 BP 148 / 69 (auto/); hs1 11:13 Pulse 96 MON; Resp 18; Pulse Ox 93% ; hs1 11:28 BP 136 / 61 (auto/); hs1 11:28 Pulse 94 MON; Pulse Ox 94% ; hs1 11:43 BP 144 / 67 (auto/); hs1 11:43 Pulse 98 MON; Pulse Ox 93% ; hs1 11:57 Pulse 100 MON; Pulse Ox 95% ; hs1 11:58 BP 139 / 76 (auto/); hs1 12:13 BP 146 / 82 (auto/); hs1 12:13 Pulse 98 MON; Pulse Ox 94% ; hs1 12:28 BP 140 / 79 (auto/); hs1 12:28 Pulse 96 MON; Resp 18; Pulse Ox 94% ; hs1 12:43 BP 152 / 82 (auto/); hs1 12:43 Pulse 96 MON; Pulse Ox 95% ; hs1 12:58 BP 144 / 72 (auto/); hs1 12:59 Pulse 92 MON; Pulse Ox 97% ; hs1 13:13 BP 142 / 73 (auto/); hs1 13:13 Pulse 90 MON; Pulse Ox 95% ; hs1 13:28 BP 135 / 72 (auto/); hs1 13:28 Pulse 88 MON; Pulse Ox 96% ; hs1 15:33 BP 129 / 77; Pulse 84; Resp 18; Temp 98.9(TE); Pulse Ox 96% ; Pain 5/10; hs1 10:22 Body Mass Index 23.62 (56.70 kg, 154.94 cm) nb2 MDM: 10:26 ECG WITH READING ER PHYS+CARDIAG ordered. 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 br1 10:31 IV Saline Lock ordered. br1 10:31 Rhythm Strip to chart ordered. br1 10:31 Undress patient appropriately for examination ordered. br1 10:32 Basic Metabolic Profile Ordered. EDMS 10:32 CBC with Diff Ordered. EDMS 10:32 Cardiac Injury Profile Ordered. EDMS 10:32 Troponin Ordered. EDMS 10:32 Chest, 2 View (pa\E\lat) Ordered. EDMS 10:45 PT/INR Ordered. EDMS 10:45 PTT Ordered. EDMS 10:49 DIGOXIN LEVEL Ordered. EDMS 11:19 Aspirin 324 mg PO once ordered. br1 11:19 Albuterol-Ipratropium 3 ml Inhalation once ordered. br1 11:19 Call Respiratory ordered. br1 11:20 Call Respiratory complete. nb2 11:21 Basic Metabolic Profile Reviewed. br1 11:21 CBC with Diff Reviewed. br1 11:21 Troponin Reviewed. br1 11:21 PT/INR Reviewed. br1 11:21 PTT Reviewed. br1 12:15 Financial registration complete. mm15 12:16 [facility] Payment Agreement was scanned into [email or web address] and attached to record. mm15 13:42 Basic Metabolic Profile Reviewed. br1 13:42 DIGOXIN LEVEL Reviewed. br1 13:42 D-DIMER QUANT Reviewed. br1 13:42 Cardiac Injury Profile Reviewed. br1 13:42 Troponin Reviewed. br1 13:42 PT/INR Reviewed. br1 13:42 PTT Reviewed. br1 13:42 Chest, 2 View (pa\E\lat) [facility]ed. [facility] ordered. br1 14:01 BED REQUEST+ADM ordered. EDMS 14:04 CT Chest Without Contrast Ordered. EDMS 14:05 Ultrasound Bilateral LE R/O DVT Ordered. EDMS 15:02 Admission / Observation Status ordered. EDMS 15:02 OTHER CUSTOM DIETS ordered. EDMS 15:03 CARDIAC MARKER PANEL Ordered. EDMS 15:03 CARDIAC MARKER PANEL Ordered. EDMS 15:06 VENT & PERFUSION LUNG SCAN Ordered. EDMS Administered Medications: 11:29 Drug: Albuterol-Ipratropium 3 ml [ipratropium-albuterol 0.5 mg-3 mg(2.5 mg base)/3 mL js11 nebulization soln (3 mL)] Route: Inhalation; 11:30 Drug: Aspirin 324 mg [aspirin 81 mg chewable tablet (4 tabs)] Route: PO; hs1 Signatures: Dispatcher [employer] EDMS Stiven Arita MD MD br1 Otilia Jauregui RN RN hs1 Uma Weinstein mm15 Sanna Gomez RN RN sls2 Luana Aguilera nb2 Jose Martin Turpin js11 The chart was reviewed and I authenticate all verbal orders and agree with the evaluation and treatment provided.Corrections: (The following items were deleted from the chart) 10:49 10:45 DIGOXIN LEVEL+LAB ordered. EDMS EDMS 11:24 11:22 D-DIMER QUANT+LAB ordered. EDMS EDMS 15:06 15:03 VENT & PERFUSION LUNG SCAN ordered. EDMS EDMS Attachments: 12:16 [facility] [place] mm15 Chart Complete MTDD
--- NOTE | 2016-04-12 17:14 | EDDOCDS ---
Physician Documentation [facility] Name: Cynthia Hennessy Age: 50 yrs Sex: Female : 1965 Arrival Date: 04/10/2016 Time: 10:20 Bed 13 Private MD: Martina Vasquez S Disposition: 04/10/16 14:07 Hospitalization ordered by Nicole Harvey for Inpatient Admission. Preliminary diagnosis is Chest pain, unspecified. - Bed requested for PCU. - Status is Inpatient Admission. hs1 - Condition is Stable. - Problem is new. - Symptoms are unchanged. Historical: - Allergies: IV Dye; SULFA (SULFONAMIDES); - Home Meds: 1. Advair Diskus inhalation Inhl 2 times per day out of medication 2. Albuterol Inhl as needed out of medication 3. Digoxin Oral once daily (Last dose: 04/07/2016) 4. Eliquis oral Unknown 2 times per day (Last dose: 04/07/2016 20:00) 5. Gabapentin Oral 3 times per day (Last dose: 04/07/2016) 6. Spiriva with HandiHaler 18 mcg Inhl CpDv 1 cap once daily out of medication 7. metformin 1,000 mg Oral tab 1 tab 2 times per day (Last dose: 04/07/2016) 8. losartan oral Unknown 2 times per day (Last dose: 04/07/2016) 9. Naprosyn Oral as needed (Last dose: Unknown) - PMHx: Atrial Fib; COPD; Diabetes - NIDDM: controlled; Hypertension; LBBB; - PSHx: kidney surgery; Chest Tube- Right; defibbrilator placement; Pacemaker Insertion; heart cath; ; - Social history: Smoking status: Patient uses tobacco products, light tobacco smoker. No barriers to communication noted. - Family history: No immediate family members are acutely ill. - : The pt / caregiver states he / she is on anticoagulants: Eliquis Home medication list is obtained from the patient. - Exposure Risk Screening:: None identified. 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 1 in. (154.94 cm) (R); Pain 8/10; 10:28 BP 149 / 85 (auto/); hs1 10:28 Pulse 98 MON; Pulse Ox 98% ; hs1 10:43 BP 140 / 79 (auto/); hs1 10:43 Pulse 98 MON; Pulse Ox 95% ; hs1 10:58 BP 133 / 77 (auto/); hs1 10:58 Pulse 94 MON; Pulse Ox 96% ; hs1 11:13 BP 148 / 69 (auto/); hs1 11:13 Pulse 96 MON; Resp 18; Pulse Ox 93% ; hs1 11:28 BP 136 / 61 (auto/); hs1 11:28 Pulse 94 MON; Pulse Ox 94% ; hs1 11:43 BP 144 / 67 (auto/); hs1 11:43 Pulse 98 MON; Pulse Ox 93% ; hs1 11:57 Pulse 100 MON; Pulse Ox 95% ; hs1 11:58 BP 139 / 76 (auto/); hs1 12:13 BP 146 / 82 (auto/); hs1 12:13 Pulse 98 MON; Pulse Ox 94% ; hs1 12:28 BP 140 / 79 (auto/); hs1 12:28 Pulse 96 MON; Resp 18; Pulse Ox 94% ; hs1 12:43 BP 152 / 82 (auto/); hs1 12:43 Pulse 96 MON; Pulse Ox 95% ; hs1 12:58 BP 144 / 72 (auto/); hs1 12:59 Pulse 92 MON; Pulse Ox 97% ; hs1 13:13 BP 142 / 73 (auto/); hs1 13:13 Pulse 90 MON; Pulse Ox 95% ; hs1 13:28 BP 135 / 72 (auto/); hs1 13:28 Pulse 88 MON; Pulse Ox 96% ; hs1 15:33 BP 129 / 77; Pulse 84; Resp 18; Temp 98.9(TE); Pulse Ox 96% ; Pain 5/10; hs1 10:22 Body Mass Index 23.62 (56.70 kg, 154.94 cm) nb2 MDM: 10:26 ECG WITH READING ER PHYS+CARDIAG ordered. 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 br1 10:31 IV Saline Lock ordered. br1 10:31 Rhythm Strip to chart ordered. br1 10:31 Undress patient appropriately for examination ordered. br1 10:32 Basic Metabolic Profile Ordered. EDMS 10:32 CBC with Diff Ordered. EDMS 10:32 Cardiac Injury Profile Ordered. EDMS 10:32 Troponin Ordered. EDMS 10:32 Chest, 2 View (pa\E\lat) Ordered. EDMS 10:45 PT/INR Ordered. EDMS 10:45 PTT Ordered. EDMS 10:49 DIGOXIN LEVEL Ordered. EDMS 11:19 Aspirin 324 mg PO once ordered. br1 11:19 Albuterol-Ipratropium 3 ml Inhalation once ordered. br1 11:19 Call Respiratory ordered. br1 11:20 Call Respiratory complete. nb2 11:21 Basic Metabolic Profile Reviewed. br1 11:21 CBC with Diff Reviewed. br1 11:21 Troponin Reviewed. br1 11:21 PT/INR Reviewed. br1 11:21 PTT Reviewed. br1 12:15 Financial registration complete. mm15 12:16 [facility] Payment Agreement was scanned into [employer] and attached to record. mm15 13:42 Basic Metabolic Profile Reviewed. br1 13:42 DIGOXIN LEVEL Reviewed. br1 13:42 D-DIMER QUANT Reviewed. br1 13:42 Cardiac Injury Profile Reviewed. br1 13:42 Troponin Reviewed. br1 13:42 PT/INR Reviewed. br1 13:42 PTT Reviewed. br1 13:42 Chest, 2 View (pa\E\lat) Reviewed. br[facility] 14:[facility]. br1 14:01 BED REQUEST+ADM ordered. EDMS 14:04 CT Chest Without Contrast Ordered. EDMS 14:05 Ultrasound Bilateral LE R/O DVT Ordered. EDMS 15:02 Admission / Observation Status ordered. EDMS 15:02 OTHER CUSTOM DIETS ordered. EDMS 15:03 CARDIAC MARKER PANEL Ordered. EDMS 15:03 CARDIAC MARKER PANEL Ordered. EDMS 15:06 VENT & PERFUSION LUNG SCAN Ordered. EDMS Administered Medications: 11:29 Drug: Albuterol-Ipratropium 3 ml [ipratropium-albuterol 0.5 mg-3 mg(2.5 mg base)/3 mL js11 nebulization soln (3 mL)] Route: Inhalation; 11:30 Drug: Aspirin 324 mg [aspirin 81 mg chewable tablet (4 tabs)] Route: PO; hs1 Signatures: Dispatcher [employer] EDMS Stiven Arita MD MD br1 Otilia Jauregui RN RN hs1 Uma Weinstein mm15 Sanna Gomez RN RN sls2 Luana Aguilera nb2 Jose Martin Turpin js11 The chart was reviewed and I authenticate all verbal orders and agree with the evaluation and treatment provided.Corrections: (The following items were deleted from the chart) 10:49 10:45 DIGOXIN LEVEL+LAB ordered. EDMS EDMS 11:24 11:22 D-DIMER QUANT+LAB ordered. EDMS EDMS 15:06 15:03 VENT & PERFUSION LUNG SCAN ordered. EDMS EDMS Attachments: 12:16 [facility] [place] mm15 Chart Complete MTDD
--- NOTE | 2016-04-12 17:14 | EDDOCDS ---
Nurse's Notes [facility] Name: Cynthia Hennessy Age: 50 yrs Sex: Female : 1965 Arrival Date: 04/10/2016 Time: 10:20 Bed 13 Private MD: Martina Vasquez S Diagnosis: Chest pain, unspecified Presentation: 04/10 10:26 Red Flag criteria, patient assessed and taken directly to a bed. [facility] 10:30 Presenting complaint: Patient states: Chest pains since to left breast. hs1 Patient states is concerned for pleurisy as she recently had pneumonia discharged from hospital last Sunday. Patient states painful when taking a deep breath and coughing. Aspirin was not taken prior to arrival. Adult Sepsis Screening: The patient does not have new or worsening altered mentation. Patient's respiratory rate is less than 22. Systolic blood pressure is greater than 100. Patient has a qSOFA score of 0- Negative Sepsis Screen. Suicide/Homicide risk assessment- the patient denies having any suicidal and/or homicidal ideations and does not present with any other emotional, behavioral or mental health complaints. 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 Transition of care: patient was not received from another setting of care. 10:30 Acuity: ELIAS Level 2 hs1 10:30 Method Of Arrival: Walkin/Carried/Asstd hs1 Triage Assessment: 10:35 General: Appears uncomfortable. Pain: Location: left breast Pain currently is 7 out of hs1 10 on a pain scale. Quality of pain is described as sharp. HIV screening NA for this visit Offered previously. Cardiovascular: Chest pain is described as Pain is 7 out of 10 on a pain scale. radiates Does not radiate. episodes are continuous began since is aggravated by breathing. Derm: Skin is pink, warm & dry. normal. 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 Advair Diskus inhalation Inhl 2 times per day out of medication 2. Albuterol Inhl as needed out of medication 3. Digoxin Oral once daily (Last dose: 04/07/2016) 4. Eliquis oral Unknown 2 times per day (Last dose: 04/07/2016 20:00) 5. Gabapentin Oral 3 times per day (Last dose: 04/07/2016) 6. Spiriva with HandiHaler 18 mcg Inhl CpDv 1 cap once daily out of medication 7. metformin 1,000 mg Oral tab 1 tab 2 times per day (Last dose: 04/07/2016) 8. losartan oral Unknown 2 times per day (Last dose: 04/07/2016) 9. Naprosyn Oral as needed (Last dose: Unknown) - PMHx: Atrial Fib; COPD; Diabetes - NIDDM: controlled; Hypertension; LBBB; - PSHx: kidney surgery; Chest Tube- Right; defibbrilator placement; Pacemaker Insertion; heart cath; ; - Social history: Smoking status: Patient uses tobacco products, light tobacco smoker. No barriers to communication noted. - Family history: No immediate family members are acutely ill. - : The pt / caregiver states he / she is on anticoagulants: Eliquis Home medication list is obtained from the patient. - Exposure Risk Screening:: None identified. Screenin:59 Screening information is obtained from the patient. Fall risk: No risks identified. hs1 Assistance ADL's: requires no assistance with activities of daily living. Abuse/DV Screen: The patient / caregiver reports he/she is: not in a situation that causes fear, pain or injury. Nutritional screening: No deficits noted. Advance Directives: There is no active DNR order. home support is adequate. Assessment: 11:36 General: Appears in no apparent distress, Behavior is appropriate for age, cooperative. hs1 Cardiovascular: Rhythm is sinus rhythm with multifocal PVCs. Respiratory: Airway is patent Respiratory effort is even, unlabored, Respiratory pattern is regular, symmetrical, receiving breathing treatments at this time. 12:42 Reassessment: Patient appears in no apparent distress at this time. Patient states hs1 feeling better. Patient states symptoms have improved. Respiratory: Airway is patent Breath sounds are coarse bilaterally. Derm: Skin is pink, warm & dry. normal. 12:42 General: Reports that patient was able to reach PCP and they are calling in scripts for hs1 inhalers. . 12:59 General: Patient ambulatory to bathroom. Patient reports able to now take more of a hs1 deep breath. . Pain: Location: left lateral anterior chest. Neurological: No deficits noted. Respiratory: Airway is patent Respiratory effort is even, unlabored. 13:45 General: Appears in no apparent distress, comfortable, Behavior is appropriate for age, hs1 cooperative, Awaiting further plan of care. Patient resting and appears in no distress. Patient is comfortable. . 14:50 Reassessment: Patient appears in no apparent distress at this time. Patient states hs1 feeling better. Patient states symptoms have improved. Pain: Location: left lateral anterior chest Pain currently is 5 out of 10 on a pain scale. Respiratory: Airway is patent Respiratory effort is even, unlabored, Respiratory pattern is regular, symmetrical. Respiratory: Airway is patent Respiratory effort is even, unlabored, Respiratory pattern is regular, symmetrical. Vital Signs: 10:22 BP 139 / 88; Pulse 95; Resp 18; Temp 98.1(O); Pulse Ox 95% on R/A; Weight 56.7 kg (R); nb2 Height 5 ft. 1 in. (154.94 cm) (R); Pain 8/10; 10:28 BP 149 / 85 (auto/); hs1 10:28 Pulse 98 MON; Pulse Ox 98% ; hs1 10:43 BP 140 / 79 (auto/); hs1 10:43 Pulse 98 MON; Pulse Ox 95% ; hs1 10:58 BP 133 / 77 (auto/); hs1 10:58 Pulse 94 MON; Pulse Ox 96% ; hs1 11:13 BP 148 / 69 (auto/); hs1 11:13 Pulse 96 MON; Resp 18; Pulse Ox 93% ; hs1 11:28 BP 136 / 61 (auto/); hs1 11:28 Pulse 94 MON; Pulse Ox 94% ; hs1 11:43 BP 144 / 67 (auto/); hs1 11:43 Pulse 98 MON; Pulse Ox 93% ; hs1 11:57 Pulse 100 MON; Pulse Ox 95% ; hs1 11:58 BP 139 / 76 (auto/); hs1 12:13 BP 146 / 82 (auto/); hs1 12:13 Pulse 98 MON; Pulse Ox 94% ; hs1 12:28 BP 140 / 79 (auto/); hs1 12:28 Pulse 96 MON; Resp 18; Pulse Ox 94% ; hs1 12:43 BP 152 / 82 (auto/); hs1 12:43 Pulse 96 MON; Pulse Ox 95% ; hs1 12:58 BP 144 / 72 (auto/); hs1 12:59 Pulse 92 MON; Pulse Ox 97% ; hs1 13:13 BP 142 / 73 (auto/); hs1 13:13 Pulse 90 MON; Pulse Ox 95% ; hs1 13:28 BP 135 / 72 (auto/); hs1 13:28 Pulse 88 MON; Pulse Ox 96% ; hs1 15:33 BP 129 / 77; Pulse 84; Resp 18; Temp 98.9(TE); Pulse Ox 96% ; Pain 5/10; hs1 10:22 Body Mass Index 23.62 (56.70 kg, 154.94 cm) 2 Vitals: 10:22 Log In Time: April 10, 2016 at 10:20. nb2 10:23 RN notified that patient meets Red Flag criteria. nb2 ED Course: 10:22 Patient visited by Luana Aguilera. nb2 10:22 Martina Vasquez is Private Physician. nb2 10:22 Patient moved to Waiting nb2 10:23 Patient visited by Luana Aguilera. nb2 10:23 Patient visited by Luana Aguilera. nb2 10:23 Patient moved to Pre RCE nb2 10:24 Patient moved to 13 nb2 10:25 Inserted saline lock: 20 gauge in right forearm and blood collected. The patient hs1 tolerated the procedure well. 10:31 Triage Initiated hs1 10:36 The patient / caregiver is instructed regarding the plan of care and ED course. Cardiac hs1 monitor on. Pulse ox on. NIBP on. 10:36 Basic Metabolic Profile Sent. deg 10:36 CBC with Diff Sent. deg 10:36 Cardiac Injury Profile Sent. deg 10:36 Troponin Sent. deg 10:58 Patient visited by Otilia Jauregui RN. hs1 10:58 DIGOXIN LEVEL Sent. hs1 10:58 PTT Sent. hs1 10:58 PT/INR Sent. hs1 11:10 Patient visited by Otilia Jauregui RN. hs1 11:12 Stivne Arita MD is Attending Physician. br1 11:19 Patient visited by Stiven Arita MD. br1 12:07 Chest, 2 View (pa\E\lat) Returned. EDMS 12:16 [facility] [place] Payment Agreement was scanned into [employer] and attached to record. mm15 12:24 Patient visited by Otilia Jauregui RN. hs1 12:37 Otilia Jauregui RN is Primary Nurse. hs1 12:59 Patient visited by Otilia Jauregui RN. hs1 13:59 Patient visited by Stiven Arita MD. br1 14:07 Nicole Harvey is Hospitalizing Provider. br1 15:03 Ultrasound Bilateral LE R/O DVT Returned. EDMS 15:32 No procedures done that require assistance. hs1 16:24 CT Chest Without Contrast Returned. EDMS Administered Medications: 11:29 Drug: Albuterol-Ipratropium 3 ml [ipratropium-albuterol 0.5 mg-3 mg(2.5 mg base)/3 mL js11 nebulization soln (3 mL)] Route: Inhalation; 11:30 Drug: Aspirin 324 mg [aspirin 81 mg chewable tablet (4 tabs)] Route: PO; hs1 RT: 11:29 Initial Med Neb Given as ordered Patient was instructed and evaluated on procedure js11 Patient tolerated procedure well without adverse effect. Oxygen is room air. Respiratory: Breath sounds with crackles bilaterally. Breath sounds are diminished bilaterally. Order Results: Lab Order: Basic Metabolic Profile; SPEC'M 04/10/16 10:38 Test: GLUCOSE, FASTING; Value: 119; Range: 70-105; Abnormal: Above high normal; Units: MG/DL; Status: F Test: BLOOD UREA NITROGEN; Value: 16; Range: 7-18; Units: MG/DL; Status: F Test: CREATININE FOR GFR; Value: 0.89; Range: 0.55-1.02; Units: MG/DL; Status: F Test: GLOMERULAR FILTRATION RATE; Value: > 60.0; Range: >58; Status: F Test: SODIUM LEVEL; Value: 139; Range: 136-145; Units: MEQ/L; Status: F Test: POTASSIUM SERUM; Value: 4.5; Range: 3.5-5.1; Units: MEQ/L; Status: F Test: CHLORIDE LEVEL; Value: 103; Range: 98-107; Units: MEQ/L; Status: F Test: CARBON DIOXIDE LEVEL; Value: 27; Range: 21-32; Units: MEQ/L; Status: F Test: ANION GAP; Value: 9; Range: 8-16; Units: MEQ/L; Status: F Test: CALCIUM LEVEL; Value: 8.9; Range: 8.5-10.1; Units: MG/DL; Status: F Test Note: ; Units are mL/min/1.73 m2 Chronic Kidney Disease Staging per NKF: Stage I & II GFR >=60 Normal to Mildly Decreased Stage III GFR 30-59 Moderately Decreased Stage IV GFR 15-29 Severely Decreased Stage V GFR <15 Very Little GFR Left ESRD GFR <15 on SR. CONSULTANT Lab Order: CBC with Diff; SPEC'M 04/10/16 10:38 Test: WHITE BLOOD COUNT; Value: 8.6; Range: 4.0-10.0; Units: K/mm3; Status: F Test: RED BLOOD COUNT; Value: 5.45; Range: 4.00-5.40; Abnormal: Above high normal; Units: M/mm3; Status: F Test: HEMOGLOBIN; Value: 16.4; Range: 12.0-16.0; Abnormal: Above high normal; Units: g/dl; Status: F Test: HEMATOCRIT; Value: 48.3; Range: 36.0-47.0; Abnormal: Above high normal; Units: %; Status: F Test: MEAN CORPUSCULAR VOLUME; Value: 88.7; Range: 80.0-96.0; Units: fl; Status: F Test: MEAN CORPUSCULAR HEMOGLOBIN; Value: 30.1; Range: 27.0-33.0; Units: pg; Status: F Test: MEAN CORPUSCULAR HGB CONC; Value: 34.0; Range: 32.0-36.5; Units: g/dl; Status: F Test: RED CELL DISTRIBUTION WIDTH; Value: 12.9; Range: 11.5-14.5; Units: %; Status: F Test: PLATELET COUNT, AUTOMATED; Value: 224; Range: 150-450; Units: k/mm3; Status: F Test: NEUTROPHILS %; Value: 65.5; Range: 36.0-66.0; Units: %; Status: F Test: LYMPH %; Value: 23.3; Range: 24.0-44.0; Abnormal: Below low normal; Units: %; Status: F Test: MONO %; Value: 6.3; Range: 0.0-5.0; Abnormal: Above high normal; Units: %; Status: F Test: EOS %; Value: 0.7; Range: 0.0-3.0; Units: %; Status: F Test: BASO %; Value: 0.4; Range: 0.0-1.0; Units: %; Status: F Test: LARGE UNSTAINED CELL %; Value: 3.8; Range: 0.0-4.0; Units: %; Status: F Test: NEUTROPHILS #; Value: 5.6; Range: 1.8-7.7; Units: K/mm3; Status: F Test: LYMPH #; Value: 2.0; Range: 1.5-4.5; Units: K/mm3; Status: F Test: MONO #; Value: 0.5; Range: 0.0-0.8; Units: K/mm3; Status: F Test: EOS #; Value: 0.1; Range: 0.0-0.50; Units: K/mm3; Status: F Test: BASO #; Value: 0.0; Range: 0.0-0.2; Units: K/mm3; Status: F Test: LARGE UNSTAINED CELL #; Value: 0.3; Range: 0.0-0.4; Units: K/mm3; Status: F Lab Order: Cardiac Injury Profile; [facility] 04/10/16 10:38 Test: CPK CREATINE PHOSPHOKINASE; Value: 38; Range: 26-192; Units: U/L; Status: F Test: CK-MB VALUE MASS; Value: 1.2; Range: 0.0-3.6; Units: NG/ML; Status: F Test: MB/CK RELATIVE INDEX; Value: 3.15; Range: < OR =4; Status: F Test Note: ; DIAGNOSIS CRITERIA MMB ng/ml Relative Index (RI) NON-AMI < or = 5 N/A [place]ONE > 5 < or = 4 AMI > 5 > 4 Lab Order: Troponin; [facility]' 04/10/16 10:38 Test: TROPONIN I; Value: < 0.02; Range: < 0.10; Units: NG/ML; Status: F Test Note: ; Troponin I Reference Interval for Coresonic LOCI: 99th Percentile= 0.00-0.045 ng/ml Risk Stratification: <= 0.10 ng/ml Decreased Risk for Adverse Clinical Events. 0.10-1.50 ng/ml Increased Risk for Adverse Clinical Events. Evaluation of additional criterion and/or repeat testing in 2-6 hours is suggested to rule out myocardial damage. >= 1.50 ng/ml Indicative of Myocardial Injury. Lab Order: PT/INR; [facility] 04/10/16 10:38 Test: PROTHROMBIN TIME; Value: 12.4; Range: 12.3-14.5; Units: SECONDS; Status: F Test: INR; Value: 0.91; Status: F Test Note: ; THERAPUTIC HUMAN INR VALUES INDICATIONS NORMAL RANGES PROPHYLAXIS/TREATMENT OF: VENOUS THROMBOSIS 2.0-3.0 PULMONARY EMBOLISM 2.0-3.0 PREVENTION OF SYSTEMIC EMBOLISM FROM: TISSUE HEART VALVES 2.0-3.0 ACUTE MYOCARDIAL INFARCTION 2.0-3.0 VALVULAR HEART DISEASE 2.0-3.0 ATRIAL FIBRILLATION 2.0-3.0 MECHANICAL VALVES(HIGH RISK) 2.5-3.5 RECURRENT MYOCARDIAL INFARCTION 2.5-3.5 Lab Order: PTT; [facility] 04/10/16 10:38 Test: PARTIAL THROMBOPLASTIN TIME; Value: 29.4; Range: 26.6-37.1; Units: SECONDS; Status: F Lab Order: DIGOXIN LEVEL; [facility] 04/10/16 10:38 Test: DIGOXIN LEVEL; Value: 0.3; Range: 0.5-2.0; Abnormal: Below low normal; Units: NG/ML; Status: F Lab Order: D-DIMER QUANT; [facility] 04/10/16 10:38 Test: D-DIMER QUANT; Value: 1883.5; Range: <500; Abnormal: Above high normal; Units: ng/ml; Status: F Lab Order: CARDIAC MARKER PANEL; [facility] 04/10/16 15:21 Test: CPK CREATINE PHOSPHOKINASE; Value: 30; Range: 26-192; Units: U/L; Status: F Test: CK-MB VALUE MASS; Value: 1.0; Range: 0.0-3.6; Units: NG/ML; Status: F Test: MB/CK RELATIVE INDEX; Value: 3.33; Range: < OR =4; Status: F Test: TROPONIN I; Value: < 0.02; Range: < 0.10; Units: NG/ML; Status: F Test Note: ; DIAGNOSIS CRITERIA MMB ng/ml Relative Index (RI) NON-AMI < or = 5 N/A [place] ZONE > 5 < or = 4 AMI > 5 > 4 Radiology Order: Chest, 2 View (pa\E\lat) Test: Chest, 2 View (pa\E\lat) REASON FOR EXAMINATION: Shortness of Breath; CHEST X-RAY PA AND LATERAL: 04/10/2016.; ; Clinical History: Dyspnea.; ; Comparison: AP portable chest 04/02/2016, two-view chest 08/30/2015.; ; Findings: Multilead AICD pacer with leads in the right atrium, right ventricle; and epicardial lead, all unchanged. The battery unit is over the left midchest.; Lungs are marginally adequate in the degree of inflation. There is no pleural; effusion or dense consolidation. No pleural thickening, apical scarring or; pneumothorax. Some minor fibrotic changes are present. Heart not grossly; enlarged for this degree of inflation. There is no aortic aneurysm. The airway; is intact. The bony thorax shows no compression deformity. No free air under; the diaphragm.; ; Impression:; ; 1. Borderline heart size without pulmonary edema, pleural effusion or definite; acute infiltrate. Lungs only marginally adequate in the degree of inflation.; There is no venous hypertension or edema.; ; 2. Multi lead AICD pacer as before. No pneumothorax.; ; 3. Bones intact. No free air.; ; ; Signed by; Norman Junior MD 04/10/2016 11:45 A; Radiology Order: CT Chest Without Contrast Test: CT Chest Without Contrast REASON FOR EXAMINATION: Chest Pain; CT CHEST WITHOUT IV CONTRAST:; ; CT chest is performed without IV contrast. Sagittal and coronal reconstruction; images are performed. Comparison is made with prior CT 04/02/2016.; ; Diffuse reticular nodular infiltrates in the right lung have mildly increased.; There is a new peripheral infiltrate in the left upper lobe. This is just below; the level of the twin. There is bibasilar mild atelectasis. There is underlying; scattered interstitial fibrosis. There is mild emphysematous changes and bullous; changes in both upper lobes as well as mild diffuse bronchiectasis. There is a; left sided pace maker. Heart is not enlarged. There is no thoracic aortic; aneurysm. No significantly enlarged lymph nodes are seen in the chest. There is; no pleural or pericardial effusion. Visualized upper abdominal structures are; unchanged with prominent renal pelves bilaterally.; ; IMPRESSION:; There is a mild increase in the diffuse reticular nodular infiltrates in the; right lung. There is a new infiltrate in the peripheral left lung, somewhat; inferiorly.; ; Unreviewed; Radiology Order: Ultrasound Bilateral LE R/O DVT Test: Ultrasound Bilateral LE R/O DVT REASON FOR EXAMINATION: Deformity/Swelling; Duplex extremity venous ultrasound: Bilateral lower extremities.; ; History: Deformity and swelling.; ; Findings: The deep veins are anechoic and fully compressible from the groin to; the popliteal fossa in the right and left lower extremity. Color flow imaging is; homogeneous. Spectral Doppler interrogation demonstrates intact respiratory; variation in flow and normal manual augmentation of flow. There is no evidence; of deep vein thrombosis. A 4.5 x 0.9 x 2.6 cm cyst is seen in the popliteal soft; tissues on the right consistent with a Ovalle's cyst.; ; Impression:; ; Negative bilateral lower extremity duplex venous ultrasound. No evidence of deep; vein thrombosis. 4.5 cm Ovalle's cyst on the right.; ; ; Signed by; Nam Root MD 04/10/2016 02:47 P; Outcome: 14:07 Decision to Hospitalize by Provider. br1 15:54 Discharge Assessment: Patient awake, alert and oriented x 3. No cognitive and/or hs1 functional deficits noted. Patient verbalized understanding of disposition instructions. patient administered narcotics - no. The following High Risk Discharge criteria are identified: None. Admitted to PCU accompanied by nurse, accompanied by tech, via stretcher, with oxygen, on monitor, with chart. Condition: stable. CT Study completed. Ultrasound Study completed. Admission hand-off: Report called to Luana Tyler RN PCU. Property sent home with patient. 16:13 Patient left the ED. hs1 Signatures: Dispatcher [employer] EDMS Lisa Groves, Remedial Reading Teacher Unit deg Kate Alvarado RN RN kpj Roggie, Brian, MD MD br1 Otilia Jauregui RN RN hs1 Jose Martin Turpin js11 Uma Weinstein mm15 Luana Aguilera nb2 Chart Complete MTDD
== END 2016-04-11 13:04 | disposition home or self-care (01) ==
LOC: M ED 10:20 → M ED INP 14:56 → M PCU 16:18
PROVIDERS: ADMIT Internal Medicine Nephrology; ATTEND Hospitalist
DX: J18.9 Pneumonia, unspecified organism (principal); R79.1 Abnormal coagulation profile; E11.9 Type 2 diabetes mellitus without complications; I10 Essential (primary) hypertension; J44.9 Chronic obstructive pulmonary disease, unspecified; F17.210 Nicotine dependence, cigarettes, uncomplicated; F10.10 Alcohol abuse, uncomplicated; F31.9 Bipolar disorder, unspecified; I48.91 Unspecified atrial fibrillation; Z79.01 Long term (current) use of anticoagulants; Z95.0 Presence of cardiac pacemaker; Z95.810 Presence of automatic (implantable) cardiac defibrillator
CPT/HCPCS: 36415; 71020; 71250; 80048; 80162; 82550; 82553; 85025; 85379; 85610; 85730; 93005; 93041; 93970; 94640; 94664; 96374; 96376; 99285; C9113

== ENCOUNTER → 2016-04-12 | Outpatient (REF) ==
[~2016-04-12] MED LIST changes: +ALBU17IN INH; +DOXY-278 PO
== END ==
LOC: M LAB 11:23